=== PATIENT | female | born 1940 | race Caucasian/White ===

== ENCOUNTER → 2017-09-24 | Outpatient (CLI) | payer MEDICARE, OTHER | END | disposition home or self-care (01) | LOC: KCIC MAMMO 10:01 | DX: Z12.31 Encounter for screening mammogram for malignant neoplasm of breast (principal) | CPT/HCPCS: 77063; 77067 ==

== ENCOUNTER 2019-09-06 13:30 | Inpatient (IN) | payer MEDICARE ==
[~2019-09-06] VITALS: Ht 152.4 cm; Wt 112.5 kg
[2019-09-06] MEDS ORDERED: FAMOTIDINE 20 MG/2 ML VIAL IVP ONE (14:30)
[2019-09-06] MEDS ORDERED: IV NORMAL SALINE 1000ML BAG 1,000 ML IV ONE ×2 (14:30→18:15)
[2019-09-06] MEDS ORDERED: DICYCLOMINE HCL 10 MG CAPSULE PO ONE (14:30)
[2019-09-06] MEDS ORDERED: fentaNYL PF VIAL 100 MCG/2 ML VIAL IV PRN (14:30)
[2019-09-06] MEDS ORDERED: ONDANSETRON PF 4 MG/2 ML VIAL. IVP ONE (14:30)
--- NOTE | 2019-09-06 14:30 | EKG ---
[facility] [address] [place] [address] Test Date: 2019-09-06 Test Time: 13:38:07 Pat Name: GRAHAM MORRIS Department: Room: Gender: F Income Tax Auditor: : 1940 Requested By: WILLIAMS JACOBS Order Number: [id number] Reading MD: Measurements Intervals [place] Rate: 70 P: 40 MD: 156 QRS: -15 QRSD: 90 T: 56 QT: 446 QTc: 484 Interpretive Statements SINUS RHYTHM LEFTWARD AXIS NON SPECIFIC T ABNORMALITY PROLONGED QT BORDERLINE ECG No previous ECG available for comparison
[2019-09-06 14:33] LABS: BASO % 0 % (0-3); EOS % 0 % (0-3); HEMATOCRIT 43.9 % (36.0-47.0); HEMOGLOBIN 14.9 g/dL (12.0-15.5); LYMPH # 1.1 x10^3/uL (1.0-4.8); LYMPH % 8 % (24-48); MEAN CORPUSCULAR HEMOGLOBIN 31 pg (25-35); MEAN CORPUSCULAR HGB CONC 34 g/dL (31-37); MEAN CORPUSCULAR VOLUME 91 fL (79-100); MONO # 0.4 x10^3/uL (0.0-1.1); MONO % 3 % (0-9); NEUT # 12.8 x10^3/uL (1.8-7.7); NEUT % 89 % (31-73); PLATELET COUNT 270 x10^3/uL (140-400); RED CELL DISTRIBUTION WIDTH 13.9 % (11.5-14.5); WHITE BLOOD COUNT 14.4 x10^3/uL (4.0-11.0)
[2019-09-06 14:53] LABS: CALCIUM 9.2 mg/dL (8.5-10.1); GFR 53.5; POTASSIUM 3.8 mmol/L (3.5-5.1)
[2019-09-06 14:58] LABS: ALBUMIN 3.7 g/dL (3.4-5.0); ALBUMIN/GLOBULIN RATIO 0.9 (1.0-1.7); MAGNESIUM 2.2 mg/dL (1.8-2.4); TOTAL BILIRUBIN 0.6 mg/dL (0.2-1.0); TOTAL PROTEIN 7.7 g/dL (6.4-8.2)
[2019-09-06] MEDS ORDERED: IOHEXOL 300 MG/ML 100ML VIAL. IV ONE (15:00)
[2019-09-06 15:11] LABS: BILIRUBIN,URINE SMALL (NEG); CLARITY,URINE CLEAR; COLOR,URINE AMBER; NITRITE,URINE NEGATIVE (NEG); PROTEIN,URINE 30 mg/dL (NEG-TRACE)
[2019-09-06 15:17] LABS: BARBITURATES NEG (NEG); BENZODIAZEPINES NEG (NEG); CANNABINOIDS NEG (NEG); COCAINE NEG (NEG); METHADONE NEG (NEG); OPIATES NEG (NEG); PHENCYCLIDINE NEG (NEG)
[2019-09-06 15:20] LABS: AMPHETAMINE/METHAMPHETAMINE NEG (NEG)
[2019-09-06 15:28] LABS: HYALINE CASTS, URINE MANY /HPF; SQUAMOUS EPITHELIAL CELL,UR MANY /LPF
[2019-09-06 15:29] LABS: BACTERIA,URINE MOD /HPF (0-FEW)
[2019-09-06 15:49] LABS: % BANDS 7 % (0-9); % LYMPHS 8 % (24-48); % MONOS 2 % (0-10); % SEGS 83 % (35-66); PLT ESTIMATE ADEQUATE (ADEQUATE)
--- NOTE | 2019-09-06 16:13 | RAD ---
EXAM: CT Abdomen and Pelvis with IV contrast CLINICAL HISTORY: Abdominal pain COMPARISON: none TECHNIQUE: Helical CT of the abdomen and pelvis was performed following the administration of IV contrast. Axial, coronal and sagittal reformatted images were generated. ---PQRS compliance statement - One or more of the following individualized dose reduction techniques were utilized for this study: 1. Automated exposure control 2. Adjustment of the mA and/or kV according to patient size 3. Use of iterative reconstruction technique--- FINDINGS: Lower chest: Linear opacities in lower lobes likely scarring/atelectasis. Abdomen and pelvis: Liver and biliary system: Hepatic hypoattenuation may be seen with fatty liver. No focal liver lesion. Gallbladder is normal. No biliary duct dilatation. Spleen: Unremarkable Pancreas: Pancreas is unremarkable. Adrenal glands: Unremarkable Kidneys: Symmetric nephrograms. Subcentimeter hypodense left upper pole renal lesion is too small to accurately characterize. No hydronephrosis or hydroureter. Lymph nodes/retroperitoneum: No abdominal or pelvic lymphadenopathy. Vessels: Aorta is normal in caliber. Bowel/Peritoneal cavity: Moderate colonic stool content is seen. There is diffuse fluid distention of the small bowel measuring up to 2.8 cm. There is also small bowel feces sign. In the right lower quadrant there is decompressed distal small bowel to the level of the colon. Appendix is normal. No abdominal or pelvic ascites. Abdominal wall: Unremarkable Bladder: Bladder is decompressed but otherwise unremarkable. Bones: Degenerative changes of the spine are seen. No aggressive osseous lesion is seen. IMPRESSION: 1. Although there is no evidence for complete small bowel obstruction, there is suggestion for low-grade or partial small bowel obstruction given small bowel feces sign and relative decompression beyond the transition point in the right lower quadrant. 2. Appendix is normal. 3. Gallbladder is normal. 4. Relative hepatic hypoattenuation may be seen with fatty liver. Electronically signed by: Mauricio Callaway MD (09/06/2019 4:10 PM) [facility] [place]
[2019-09-06] MEDS ORDERED: ALBUTEROL SULFATE 2.5 MG/3 ML NEBU. NEB PRN (17:15)
[2019-09-06] MEDS ORDERED: ACETAMINOPHEN 650 MG SUPP.RECT. PR PRN (17:15)
[2019-09-06] MEDS ORDERED: guaiFENesin ORAL 200 MG/10 ML LIQUID. PO PRN (17:15)
[2019-09-06] MEDS ORDERED: ACETAMINOPHEN 325 MG TABLET. PO PRN (17:15)
[2019-09-06] MEDS: ONDANSETRON PF 4 MG/2 ML VIAL. IV PRN (17:53)
--- NOTE | 2019-09-06 18:14 | RAD ---
Exam: Acute abdominal series INDICATION: Partial small bowel obstruction TECHNIQUE: Frontal view of the chest with upright and supine views of the abdomen Comparisons: CT same day FINDINGS: The cardiomediastinal silhouette and pulmonary vessels are within normal limits. The lung and pleural spaces are clear. Multiple air-filled dilated loops of small bowel are noted throughout the abdomen. No free air. No suspicious masses or calcifications. Visualized osseous structures are unremarkable. IMPRESSION: Multiple dilated loops of small bowel consistent with history of partial small bowel obstruction. Continued radiographic follow-up is recommended. Electronically signed by: Lenny Conner MD (09/06/2019 6:11 PM) [facility]
[2019-09-06] MEDS ORDERED: PROCHLORPERAZINE 10 MG/2 ML VIAL. IV PRN (18:15)
[2019-09-06] MEDS ORDERED: ONDANSETRON PF 4 MG/2 ML VIAL. IV PRN (18:15)
[2019-09-06] MEDS ORDERED: MORPHINE SULFATE 2 MG/ML VIAL. IV PRN (18:15)
--- NOTE | 2019-09-06 18:40 | PHYS DOC ---
Past Medical History Past Medical History: Arthritis, Glaucoma, Hypertension (WILLIAMS JACOBS APRN) Alcohol Use: None (WILLIAMS JACOBS APRN) Adult General Chief Complaint Chief Complaint: ABDOMINAL PAIN HPI HPI Patient is a 79 year old female with history of hypertension who presents to the ED today complaining of mild intermittent generalized abdominal pain with nausea and vomiting that began this morning. Patient denies any diarrhea. She r eports she's had an open hysterectomy years ago. Denies any hematemesis or melena. Patient reports the pain was so bad that she almost passed out. (WILLIAMS JACOBS APRN) Review of Systems Review of Systems Constitutional: Denies fever or chills [] Eyes: Denies change in visual acuity, redness, or eye pain [] HENT: Denies nasal congestion or sore throat [] Respiratory: Denies cough or shortness of breath [] Cardiovascular: No additional information not addressed in HPI [] GI: Reports nausea vomiting and abdominal pain. Denies bloody stools or diarrhea [] : Denies dysuria or hematuria [] Musculoskeletal: Denies back pain or joint pain [] Integument: Denies rash or skin lesions [] Neurologic: Denies headache, focal weakness or sensory changes [] All other systems were reviewed and found to be within normal limits, except as documented in this note. (WILLIAMS JACOBS APRN) Current Medications Current Medications Current Medications Medications (Trade) Dose Ordered Sig/Brianna Start Time Stop Time Status Last Admin Dose Admin Acetaminophen (Tylenol Supp) 650 mg PRN Q4HRS PRN 09/06/19 17:15 Acetaminophen (Tylenol) 650 mg PRN Q4HRS PRN 09/06/19 17:15 09/09/19 05:03 650 MG Albuterol Sulfate (Ventolin Neb Soln) 2.5 mg PRN Q4HRS PRN 09/06/19 17:15 Dicyclomine HCl (Bentyl) 20 mg 1X ONCE 09/06/19 14:30 09/06/19 14:35 DC 09/06/19 14:58 20 MG Docusate Sodium (Colace) 100 mg PRN BID PRN 09/06/19 17:15 09/07/19 21:25 100 MG Famotidine (Pepcid Vial) 20 mg 1X ONCE 09/06/19 14:30 09/06/19 14:35 DC 09/06/19 15:00 20 MG Fentanyl Citrate (Fentanyl 2ml Vial) 25 mcg PRN Q15MIN PRN 09/06/19 14:30 09/06/19 21:00 DC 09/06/19 16:36 25 MCG Guaifenesin (Robitussin) 200 mg PRN Q4HRS PRN 09/06/19 17:15 Iohexol (Omnipaque 300 Mg/ml) 60 ml 1X ONCE 09/06/19 15:00 09/06/19 15:01 DC 09/06/19 15:00 60 ML Lorazepam (Ativan Inj) 1 mg PRN Q4HRS PRN 09/06/19 17:15 09/09/19 17:31 1 MG Ondansetron HCl (Zofran) 4 mg PRN Q4HRS PRN 09/06/19 17:15 09/09/19 17:30 4 MG Sodium Chloride 1,000 ml @ 100 mls/hr Q10H 09/06/19 17:05 09/09/19 20:44 100 MLS/HR (LISA PEREZ DO) Physical Exam Physical Exam Constitutional: Well developed, well nourished, no acute distress, non-toxic appearance. [] HENT: Normocephalic, atraumatic, bilateral external ears normal, oropharynx moist, no oral exudates, nose normal. [] Eyes: PERRLA, EOMI, conjunctiva normal, no discharge. [] Neck: Normal range of motion, no tenderness, supple, no stridor. [] Cardiovascular:Heart rate regular rhythm, no murmur [] Lungs & Thorax: Bilateral breath sounds clear to auscultation [] Abdomen: Bowel sounds normal, soft, diffuse tenderness to bilateral lower abdomen worse on the left lower quadrant, negative psoas sign, negative obturator sign, negative Rovsing sign negative Herrera sign, no masses, no pulsatile masses. [] Skin: Warm, dry, no erythema, no rash. [] Back: No tenderness, no CVA tenderness. [] Extremities: No tenderness, no cyanosis, no clubbing, ROM intact, no edema. [] Neurologic: Alert and oriented X 3, normal motor function, normal sensory function, no focal deficits noted. [] Psychologic: Affect normal, judgement normal, mood normal. [] (ARLENEWILLIAMS APRN) Current Patient Data Vital Signs Vital Signs Date Time Temp Pulse Resp B/P (MAP) Pulse Ox O2 Delivery O2 Flow Rate FiO2 09/06/19 17:15 20 96 09/06/19 16:36 Room Air 09/06/19 15:05 71 132/61 (84) 09/06/19 13:38 98.1 98.1 (PEREZLISA SU DO) Lab Values Laboratory Tests Test 09/06/19 14:15 09/06/19 15:00 White Blood Count 14.4 x10^3/uL (4.0-11.0) H Red Blood Count 4.80 x10^6/uL (3.50-5.40) Hemoglobin 14.9 g/dL (12.0-15.5) Hematocrit 43.9 % (36.0-47.0) Mean Corpuscular Volume 91 fL (79-100) Mean Corpuscular Hemoglobin 31 pg (25-35) Mean Corpuscular Hemoglobin Concent 34 g/dL (31-37) Red Cell Distribution Width 13.9 % (11.5-14.5) Platelet Count 270 x10^3/uL (140-400) Neutrophils (%) (Auto) 89 % (31-73) H Lymphocytes (%) (Auto) 8 % (24-48) L Monocytes (%) (Auto) 3 % (0-9) Eosinophils (%) (Auto) 0 % (0-3) Basophils (%) (Auto) 0 % (0-3) Neutrophils # (Auto) 12.8 x10^3/uL (1.8-7.7) H Lymphocytes # (Auto) 1.1 x10^3/uL (1.0-4.8) Monocytes # (Auto) 0.4 x10^3/uL (0.0-1.1) Eosinophils # (Auto) 0.0 x10^3/uL (0.0-0.7) Basophils # (Auto) 0.0 x10^3/uL (0.0-0.2) Segmented Neutrophils % 83 % (35-66) H Band Neutrophils % 7 % (0-9) Lymphocytes % 8 % (24-48) L Monocytes % 2 % (0-10) Platelet Estimate Adequate (ADEQUATE) Large Platelets Few Sodium Level 142 mmol/L (136-145) Potassium Level 3.8 mmol/L (3.5-5.1) Chloride Level 104 mmol/L (98-107) Carbon Dioxide Level 27 mmol/L (21-32) Anion Gap 11 (6-14) Blood Urea Nitrogen 14 mg/dL (7-20) Creatinine 1.0 mg/dL (0.6-1.0) Estimated GFR (Cockcroft-Gault) 53.5 BUN/Creatinine Ratio 14 (6-20) Glucose Level 158 mg/dL (70-99) H Calcium Level 9.2 mg/dL (8.5-10.1) Magnesium Level 2.2 mg/dL (1.8-2.4) Total Bilirubin 0.6 mg/dL (0.2-1.0) Aspartate Amino Transferase (AST) 18 U/L (15-37) Alanine Aminotransferase (ALT) 18 U/L (14-59) Alkaline Phosphatase 71 U/L (46-116) Creatine Kinase 172 U/L (26-192) Creatine Kinase MB (Mass) 4.6 ng/mL (0.0-3.6) H Creatine Kinase MB Relative Index 2.7 % (0-4) Troponin I Quantitative < 0.017 ng/mL (0.000-0.055) BP-Igv-O-Type Natriuretic Peptide 54 pg/mL (0-449) Total Protein 7.7 g/dL (6.4-8.2) Albumin 3.7 g/dL (3.4-5.0) Albumin/Globulin Ratio 0.9 (1.0-1.7) L Lipase 184 U/L (73-393) Urine Collection Type Unknown Urine Color Rosangela Urine Clarity Clear Urine pH 5.0 Urine Specific [place] >=1.030 Urine Protein 30 mg/dL (NEG-TRACE) Urine Glucose (UA) Negative mg/dL (NEG) Urine Ketones (Stick) Negative mg/dL (NEG) Urine Blood Moderate (NEG) Urine Nitrite Negative (NEG) Urine Bilirubin Small (NEG) Urine Urobilinogen Dipstick 1.0 mg/dL (0.2 mg/dL) Urine Leukocyte Esterase Small (NEG) Urine RBC 6-10 /HPF (0-2) Urine WBC 1-4 /HPF (0-4) Urine Squamous Epithelial Cells Many /LPF Urine Bacteria Mod /HPF (0-FEW) Urine Hyaline Casts Many /HPF Urine Mucus Marked /LPF Urine Opiates Screen Neg (NEG) Urine Methadone Screen Neg (NEG) Urine Barbiturates Neg (NEG) Urine Phencyclidine Screen Neg (NEG) Urine Amphetamine/Methamphetamine Neg (NEG) Urine Benzodiazepines Screen Neg (NEG) Urine Cocaine Screen Neg (NEG) Urine Cannabinoids Screen Neg (NEG) Urine Ethyl Alcohol Neg (NEG) Laboratory Tests 09/06/19 14:15 Laboratory Tests 09/06/19 14:15 (LISA PEREZ DO) EKG EKG [address] Perez sinus rhythm HR 70 no STEMI[] (WILLIAMS JACOBS VOCATIONAL DIRECTOR) Radiology/Procedures Radiology/Procedures []PROCEDURE: CT ABD PELV W/ IV CONTRST ONLY EXAM: CT Abdomen and Pelvis with IV contrast CLINICAL HISTORY: Abdominal pain COMPARISON: none TECHNIQUE: Helical CT of the abdomen and pelvis was performed following the administration of IV contrast. Axial, coronal and sagittal reformatted images were generated. ---PQRS compliance statement - One or more of the following individualized dose reduction techniques were utilized for this study: 1. Automated exposure control 2. Adjustment of the mA and/or kV according to patient size 3. Use of iterative reconstruction technique--- FINDINGS: Lower chest: Linear opacities in lower lobes likely scarring/atelectasis. Abdomen and pelvis: Liver and biliary system: Hepatic hypoattenuation may be seen with fatty liver. No focal liver lesion. Gallbladder is normal. No biliary duct dilatation. Spleen: Unremarkable Pancreas: Pancreas is unremarkable. Adrenal glands: Unremarkable Kidneys: Symmetric nephrograms. Subcentimeter hypodense left upper pole renal lesion is too small to accurately characterize. No hydronephrosis or hydroureter. Lymph nodes/retroperitoneum: No abdominal or pelvic lymphadenopathy. Vessels: Aorta is normal in caliber. Bowel/Peritoneal cavity: Moderate colonic stool content is seen. There is diffuse fluid distention of the small bowel measuring up to 2.8 cm. There is also small bowel feces sign. In the right lower quadrant there is decompressed distal small bowel to the level of the colon. Appendix is normal. No abdominal or pelvic ascites. Abdominal wall: Unremarkable Bladder: Bladder is decompressed but otherwise unremarkable. Bones: Degenerative changes of the spine are seen. No aggressive osseous lesion is seen. IMPRESSION: 1. Although there is no evidence for complete small bowel obstruction, there is suggestion for low-grade or partial small bowel obstruction given small bowel feces sign and relative decompression beyond the transition point in the right lower quadrant. 2. Appendix is normal. 3. Gallbladder is normal. 4. Relative hepatic hypoattenuation may be seen with fatty liver. Electronically signed by: Mauricio Valdes MD (09/06/2019 4:10 PM) [facility] [place] DICTATED and SIGNED BY: MAURICIO VALDES MD DATE: 09/06/19 1610 (WILLIAMS JACOBS APRN) Course & Med Decision Making Course & Med Decision Making Pertinent Labs and Imaging studies reviewed. (See chart for details) This is a 79-year-old female patient presented to the ED today complaining of abdominal pain, and nausea vomiting, symptoms began this morning. CBC with a WBC of 14.4, CMP with no acute findings CT of the abdomen and pelvic was noted for partial small bowel obstruction and constipation. Spoke to who recommended NG tube if patient is vomiting. Patient was still complaining of nausea in the ED, we attempted an NG tube which she refused. Spoke with Dr. Viera who accepted patient for admission. (WILLIAMS JACOBS APRN) Dragon Disclaimer Dragon Disclaimer This electronic medical record was generated, in whole or in part, using a voice recognition dictation system. (WILLIAMS JACOBS APRN) Departure Departure Impression: Primary Impression: SBO (small bowel obstruction) Disposition: ADMITTED INPATIENT Condition: STABLE Referrals: SONY AUGUSTINE MD (PCP) Attending Signature Attending Signature I have reviewed the PA/STREET DEPARTMENT DISPATCHER's note and plan of care. I was available for consultation as needed during the patient's visit in the emergency department. I agree with the clinical impression, plan, and disposition. (LISA PEREZ DO) WILLIAMS JACOBS APRN Sep 06, 2019 18:40 LISA PEREZ DO Sep 10, 2019 02:06
--- NOTE | 2019-09-06 18:46 | PDOC1 ---
History and Physical History of Present Illness History of Present Illness Patient is a 79 year odl female with past medical hsitory of hypertension, glaucoma who was in her usual state of health until this monrinign when she tried to finish the [place] she had ordered at [facility] yesterday evening. Patient presented lower abodminal pain sharp in nature, with no radiation to the groin or the back, The patient denies urinary symptoms no CVA tendernesss, no fever or chills, She had emesis of gastric content on 2 occasions, her symptoms did not improve. She did not self medicate, she denies fever chill no recent sick contacts no animals at home. She denies diarrhea no hematochezia or hematemesis was reported either. Patient was brought by her family members, she denies aggravating nor alleviating factors, she feels better after initial intervention in the ED with iv narcotics and iv fluids. Patient was found to have a partial bowel obstruction and we were asked to admit for further evaluation and treatment. No concerns voiced during my encounter, her surgical history is pertinent for hysterectomy years ago. No complication were reported. plan of care discussed in detail with the patient and her family members who are at bedside. ( and granddaughter) Current Medications Current Medications Current Medications Medications (Trade) Dose Ordered Sig/Brianna Start Time Stop Time Status Last Admin Dose Admin Acetaminophen (Tylenol Supp) 650 mg PRN Q4HRS PRN 09/06/19 17:15 Acetaminophen (Tylenol) 650 mg PRN Q4HRS PRN 09/06/19 17:15 Albuterol Sulfate (Ventolin Neb Soln) 2.5 mg PRN Q4HRS PRN 09/06/19 17:15 Dicyclomine HCl (Bentyl) 20 mg 1X ONCE 09/06/19 14:30 09/06/19 14:35 DC 09/06/19 14:58 20 MG Docusate Sodium (Colace) 100 mg PRN BID PRN 09/06/19 17:15 Famotidine (Pepcid Vial) 20 mg 1X ONCE 09/06/19 14:30 09/06/19 14:35 DC 09/06/19 15:00 20 MG Fentanyl Citrate (Fentanyl 2ml Vial) 25 mcg PRN Q15MIN PRN 09/06/19 14:30 09/07/19 14:29 09/06/19 16:36 25 MCG Guaifenesin (Robitussin) 200 mg PRN Q4HRS PRN 09/06/19 17:15 Iohexol (Omnipaque 300 Mg/ml) 60 ml 1X ONCE 09/06/19 15:00 09/06/19 15:01 DC 09/06/19 15:00 60 ML Lorazepam (Ativan Inj) 1 mg PRN Q4HRS PRN 09/06/19 17:15 Morphine Sulfate (Morphine Sulfate) 2 mg PRN Q2HR PRN 09/06/19 18:15 09/07/19 18:14 Ondansetron HCl (Zofran) 4 mg PRN Q8HRS PRN 09/06/19 18:15 09/07/19 18:14 UNV Prochlorperazine Edisylate (Compazine) 10 mg PRN Q8HRS PRN 09/06/19 18:15 Sodium Chloride 1,000 ml @ 100 mls/hr 1X ONCE 09/06/19 18:15 09/07/19 04:14 UNV Allergies Allergies Allergies Coded Allergies Type Severity Reaction Last Updated Verified guanfacine Allergy Unknown 09/06/19 Yes lisinopril Allergy Unknown 09/06/19 Yes ROS Review of System CONSTITUTIONAL: No fever or chills EYES: No recent changes SKIN: No rash or itching CARDIOVASCULAR: No chest pain, syncope, palpitations, or edema RESPIRATORY: No SOB or cough GASTROINTESTINAL: + nausea, +vomiting + abdominal pain NEUROLOGICAL: No headaches or weakness ENDOCRINE: No cold or heat intolerance GENITOURINARY: No urgency or frequency of urination MUSCULOSKELETAL: No back pain or joint pain LYMPHATICS: No enlarged lymph nodes PSYCHIATRIC: No anxiety or depression Physical Exam Physical Exam GEN.: No apparent distress. Alert and oriented. HEENT: Head is normocephalic, atraumatic NECK: Supple. LUNGS: Clear to auscultation. HEART: RRR, S1, S2 present. Peripheral pulses intact ABDOMEN: Soft, tneder to deep palpation , no rebound or guarding ellicited, mcburney sign negative, blackwood sign negative Positive bowel sounds. EXTREMITIES: Without any cyanosis. NEUROLOGIC: Normal speech, normal tone CN 2 to 12 intact no motor or sensory deficits. PSYCHIATRIC: Normal affect, normal mood. SKIN: No ulcerations Vitals Vitals Vital Signs Date Time Temp Pulse Resp B/P (MAP) Pulse Ox O2 Delivery O2 Flow Rate FiO2 09/06/19 17:15 20 96 09/06/19 16:36 Room Air 09/06/19 15:05 71 132/61 (84) 09/06/19 13:38 98.1 98.1 Labs Labs Laboratory Tests Test 09/06/19 14:15 09/06/19 15:00 White Blood Count 14.4 x10^3/uL (4.0-11.0) Red Blood Count 4.80 x10^6/uL (3.50-5.40) Hemoglobin 14.9 g/dL (12.0-15.5) Hematocrit 43.9 % (36.0-47.0) Mean Corpuscular Volume 91 fL (79-100) Mean Corpuscular Hemoglobin 31 pg (25-35) Mean Corpuscular Hemoglobin Concent 34 g/dL (31-37) Red Cell Distribution Width 13.9 % (11.5-14.5) Platelet Count 270 x10^3/uL (140-400) Neutrophils (%) (Auto) 89 % (31-73) Lymphocytes (%) (Auto) 8 % (24-48) Monocytes (%) (Auto) 3 % (0-9) Eosinophils (%) (Auto) 0 % (0-3) Basophils (%) (Auto) 0 % (0-3) Neutrophils # (Auto) 12.8 x10^3/uL (1.8-7.7) Lymphocytes # (Auto) 1.1 x10^3/uL (1.0-4.8) Monocytes # (Auto) 0.4 x10^3/uL (0.0-1.1) Eosinophils # (Auto) 0.0 x10^3/uL (0.0-0.7) Basophils # (Auto) 0.0 x10^3/uL (0.0-0.2) Segmented Neutrophils % 83 % (35-66) Band Neutrophils % 7 % (0-9) Lymphocytes % 8 % (24-48) Monocytes % 2 % (0-10) Platelet Estimate Adequate (ADEQUATE) Large Platelets Few Sodium Level 142 mmol/L (136-145) Potassium Level 3.8 mmol/L (3.5-5.1) Chloride Level 104 mmol/L (98-107) Carbon Dioxide Level 27 mmol/L (21-32) Anion Gap 11 (6-14) Blood Urea Nitrogen 14 mg/dL (7-20) Creatinine 1.0 mg/dL (0.6-1.0) Estimated GFR (Cockcroft-Gault) 53.5 BUN/Creatinine Ratio 14 (6-20) Glucose Level 158 mg/dL (70-99) Calcium Level 9.2 mg/dL (8.5-10.1) Magnesium Level 2.2 mg/dL (1.8-2.4) Total Bilirubin 0.6 mg/dL (0.2-1.0) Aspartate Amino Transf (AST/SGOT) 18 U/L (15-37) Alanine Aminotransferase (ALT/SGPT) 18 U/L (14-59) Alkaline Phosphatase 71 U/L (46-116) Creatine Kinase 172 U/L (26-192) Creatine Kinase MB (Mass) 4.6 ng/mL (0.0-3.6) Creatine Kinase MB Relative Index 2.7 % (0-4) Troponin I Quantitative < 0.017 ng/mL (0.000-0.055) JB-Thx-C-Type Natriuretic Peptide 54 pg/mL (0-449) Total Protein 7.7 g/dL (6.4-8.2) Albumin 3.7 g/dL (3.4-5.0) Albumin/Globulin Ratio 0.9 (1.0-1.7) Lipase 184 U/L (73-393) Urine Collection Type Unknown Urine Color Rosangela Urine Clarity Clear Urine pH 5.0 Urine Specific [place] >=1.030 Urine Protein 30 mg/dL (NEG-TRACE) Urine Glucose (UA) Negative mg/dL (NEG) Urine Ketones (Stick) Negative mg/dL (NEG) Urine Blood Moderate (NEG) Urine Nitrite Negative (NEG) Urine Bilirubin Small (NEG) Urine Urobilinogen Dipstick 1.0 mg/dL (0.2 mg/dL) Urine Leukocyte Esterase Small (NEG) Urine RBC 6-10 /HPF (0-2) Urine WBC 1-4 /HPF (0-4) Urine Squamous Epithelial Cells Many /LPF Urine Bacteria Mod /HPF (0-FEW) Urine Hyaline Casts Many /HPF Urine Mucus Marked /LPF Urine Opiates Screen Neg (NEG) Urine Methadone Screen Neg (NEG) Urine Barbiturates Neg (NEG) Urine Phencyclidine Screen Neg (NEG) Urine Amphetamine/Methamphetamine Neg (NEG) Urine Benzodiazepines Screen Neg (NEG) Urine Cocaine Screen Neg (NEG) Urine Cannabinoids Screen Neg (NEG) Urine Ethyl Alcohol Neg (NEG) Laboratory Tests Test 09/06/19 14:15 09/06/19 15:00 White Blood Count 14.4 x10^3/uL (4.0-11.0) Red Blood Count 4.80 x10^6/uL (3.50-5.40) Hemoglobin 14.9 g/dL (12.0-15.5) Hematocrit 43.9 % (36.0-47.0) Mean Corpuscular Volume 91 fL (79-100) Mean Corpuscular Hemoglobin 31 pg (25-35) Mean Corpuscular Hemoglobin Concent 34 g/dL (31-37) Red Cell Distribution Width 13.9 % (11.5-14.5) Platelet Count 270 x10^3/uL (140-400) Neutrophils (%) (Auto) 89 % (31-73) Lymphocytes (%) (Auto) 8 % (24-48) Monocytes (%) (Auto) 3 % (0-9) Eosinophils (%) (Auto) 0 % (0-3) Basophils (%) (Auto) 0 % (0-3) Neutrophils # (Auto) 12.8 x10^3/uL (1.8-7.7) Lymphocytes # (Auto) 1.1 x10^3/uL (1.0-4.8) Monocytes # (Auto) 0.4 x10^3/uL (0.0-1.1) Eosinophils # (Auto) 0.0 x10^3/uL (0.0-0.7) Basophils # (Auto) 0.0 x10^3/uL (0.0-0.2) Segmented Neutrophils % 83 % (35-66) Band Neutrophils % 7 % (0-9) Lymphocytes % 8 % (24-48) Monocytes % 2 % (0-10) Platelet Estimate Adequate (ADEQUATE) Large Platelets Few Sodium Level 142 mmol/L (136-145) Potassium Level 3.8 mmol/L (3.5-5.1) Chloride Level 104 mmol/L (98-107) Carbon Dioxide Level 27 mmol/L (21-32) Anion Gap 11 (6-14) Blood Urea Nitrogen 14 mg/dL (7-20) Creatinine 1.0 mg/dL (0.6-1.0) Estimated GFR (Cockcroft-Gault) 53.5 BUN/Creatinine Ratio 14 (6-20) Glucose Level 158 mg/dL (70-99) Calcium Level 9.2 mg/dL (8.5-10.1) Magnesium Level 2.2 mg/dL (1.8-2.4) Total Bilirubin 0.6 mg/dL (0.2-1.0) Aspartate Amino Transf (AST/SGOT) 18 U/L (15-37) Alanine Aminotransferase (ALT/SGPT) 18 U/L (14-59) Alkaline Phosphatase 71 U/L (46-116) Creatine Kinase 172 U/L (26-192) Creatine Kinase MB (Mass) 4.6 ng/mL (0.0-3.6) Creatine Kinase MB Relative Index 2.7 % (0-4) Troponin I Quantitative < 0.017 ng/mL (0.000-0.055) KO-[id number]-Type Natriuretic Peptide 54 pg/mL (0-449) Total Protein 7.7 g/dL (6.4-8.2) Albumin 3.7 g/dL (3.4-5.0) Albumin/Globulin Ratio 0.9 (1.0-1.7) Lipase 184 U/L (73-393) Urine Collection Type Unknown Urine Color [place]ela Urine Clarity Clear Urine pH 5.0 Urine Specific [place] >=1.030 Urine Protein 30 mg/dL (NEG-TRACE) Urine Glucose (UA) Negative mg/dL (NEG) Urine Ketones (Stick) Negative mg/dL (NEG) Urine Blood Moderate (NEG) Urine Nitrite Negative (NEG) Urine Bilirubin Small (NEG) Urine Urobilinogen Dipstick 1.0 mg/dL (0.2 mg/dL) Urine Leukocyte Esterase Small (NEG) Urine RBC 6-10 /HPF (0-2) Urine WBC 1-4 /HPF (0-4) Urine Squamous Epithelial Cells Many /LPF Urine Bacteria Mod /HPF (0-FEW) Urine Hyaline Casts Many /HPF Urine Mucus Marked /LPF Urine Opiates Screen Neg (NEG) Urine Methadone Screen Neg (NEG) Urine Barbiturates Neg (NEG) Urine Phencyclidine Screen Neg (NEG) Urine Amphetamine/Methamphetamine Neg (NEG) Urine Benzodiazepines Screen Neg (NEG) Urine Cocaine Screen Neg (NEG) Urine Cannabinoids Screen Neg (NEG) Urine Ethyl Alcohol Neg (NEG) VTE Prophylaxis Ordered VTE Prophylaxis Devices: Yes VTE Pharmacological Prophylaxi: Yes Assessment/Plan Assessment/Plan Partial small bowel obstruction History of hysterectomy History of essential hypertension Morbid obesity with BMI of 45 Plan: patient is passing gases which is reassuring will keep npo overnight and give bowel rest start maintenance fluids surgical consultation requested DVT prophylaxis: Heparin ESTELA MENDEZ MD Sep 06, 2019 18:46
--- NOTE | 2019-09-06 19:17 | NUR ---
Cleared reassessments from ED on [facility].
--- NOTE | 2019-09-06 19:40 | NUR ---
Pt. arrived on unit at 1940 by bed from ED. Family at bedside. VSS. Pt. does not complain of any pain. Bed placed in lowest position and call light within reach. RN will continue to monitor.
[2019-09-06 19:48] VITALS: BP 129/45
[2019-09-06] MEDS: FAMOTIDINE 20 MG/2 ML VIAL IVP SCH (21:12)
[2019-09-06] MEDS: IV NORMAL SALINE 1000ML BAG 1,000 ML IV SCH (21:22)
[2019-09-06 23:37] VITALS: BP 126/42
[2019-09-07] MEDS ORDERED: VERA240C2 PO (02:01)
[2019-09-07] MEDS ORDERED: ACET500T68 PO (02:01)
[2019-09-07] MEDS ORDERED: ASPI-630 PO (02:01)
[2019-09-07] MEDS ORDERED: TRIA50CA3 PO (02:01)
[2019-09-07] MEDS ORDERED: TRAV5DRO OU (02:01)
[2019-09-07] MEDS ORDERED: CELE200C PO (02:01)
[2019-09-07] MEDS: ONDANSETRON PF 4 MG/2 ML VIAL. IV PRN ×2 (03:11→22:55)
[2019-09-07] MEDS: IV NORMAL SALINE 1000ML BAG 1,000 ML IV SCH ×2 (03:15→18:37)
[2019-09-07] MEDS: MORPHINE SULFATE 2 MG/ML VIAL. IV PRN ×2 (03:15→22:54)
[2019-09-07 03:24] VITALS: BP 139/70
[2019-09-07 07:00] VITALS: BP 129/59
[2019-09-07 08:16] LABS: BASO % 0 % (0-3); EOS % 0 % (0-3); HEMATOCRIT 40.6 % (36.0-47.0); HEMOGLOBIN 13.4 g/dL (12.0-15.5); LYMPH # 2.1 x10^3/uL (1.0-4.8); LYMPH % 18 % (24-48); MEAN CORPUSCULAR HEMOGLOBIN 30 pg (25-35); MEAN CORPUSCULAR HGB CONC 33 g/dL (31-37); MEAN CORPUSCULAR VOLUME 92 fL (79-100); MONO # 0.8 x10^3/uL (0.0-1.1); MONO % 7 % (0-9); NEUT # 8.9 x10^3/uL (1.8-7.7); NEUT % 75 % (31-73); PLATELET COUNT 285 x10^3/uL (140-400); RED BLOOD COUNT 4.43 x10^6/uL (3.50-5.40); RED CELL DISTRIBUTION WIDTH 13.4 % (11.5-14.5); WHITE BLOOD COUNT 11.9 x10^3/uL (4.0-11.0)
[2019-09-07 08:26] LABS: CALCIUM 9.1 mg/dL (8.5-10.1); CREATININE 0.8 mg/dL (0.6-1.0); GFR 69.2; POTASSIUM 3.9 mmol/L (3.5-5.1)
--- NOTE | 2019-09-07 09:10 | PDOC ---
PROGRESS NOTES History of Present Illness History of Present Illness VTE Prophylaxis Ordered VTE Prophylaxis Devices: Yes VTE Pharmacological Prophylaxi: Yes Assessment/Plan Assessment/Plan Partial small bowel obstruction Multiple dilated loops of small bowel consistent with history of partial small bowel obstruction. Continued radiographic follow-up is recommended. 09/06 low-grade or partial small bowel obstruction given small bowel feces sign and relative decompression beyond the transition point in the right lower quadrant.ON CT 09/06 History of hysterectomy History of essential hypertension Morbid obesity with BMI of 45 Plan: patient is passing gases which is reassuring will keep npo overnight and give bowel rest start maintenance fluids surgical consultation requested DVT prophylaxis: Heparin gi consult Vitals Vitals Vital Signs Date Time Temp Pulse Resp B/P (MAP) Pulse Ox O2 Delivery O2 Flow Rate FiO2 09/07/19 03:45 Room Air 09/07/19 03:24 98.3 99 20 139/70 (93) 96 98.3 Physical Exam General: Alert, Cooperative, No acute distress Heart: Regular rate Lungs: Clear Abdomen: Soft Extremities: No cyanosis Labs LABS Exam: Acute abdominal series INDICATION: Partial small bowel obstruction TECHNIQUE: Frontal view of the chest with upright and supine views of the abdomen Comparisons: CT same day FINDINGS: The cardiomediastinal silhouette and pulmonary vessels are within normal limits. The lung and pleural spaces are clear. Multiple air-filled dilated loops of small bowel are noted throughout the abdomen. No free air. No suspicious masses or calcifications. Visualized osseous structures are unremarkable. IMPRESSION: Multiple dilated loops of small bowel consistent with history of partial small bowel obstruction. Continued radiographic follow-up is recommended. Electronically signed by: Lenny London MD (09/06/2019 6:11 PM) [facility] DICTATED and SIGNED BY: LENNY LONDON MD DATE: 09/06/191810 ---PQRS compliance statement - One or more of the following individualized dose reduction techniques were utilized for this study: 1. Automated exposure control 2. Adjustment of the mA and/or kV according to patient size 3. Use of iterative reconstruction technique--- FINDINGS: Lower chest: Linear opacities in lower lobes likely scarring/atelectasis. Abdomen and pelvis: Liver and biliary system: Hepatic hypoattenuation may be seen with fatty liver. No focal liver lesion. Gallbladder is normal. No biliary duct dilatation. Spleen: Unremarkable Pancreas: Pancreas is unremarkable. Adrenal glands: Unremarkable Kidneys: Symmetric nephrograms. Subcentimeter hypodense left upper pole renal lesion is too small to accurately characterize. No hydronephrosis or hydroureter. Lymph nodes/retroperitoneum: No abdominal or pelvic lymphadenopathy. Vessels: Aorta is normal in caliber. Bowel/Peritoneal cavity: Moderate colonic stool content is seen. There is diffuse fluid distention of the small bowel measuring up to 2.8 cm. There is also small bowel feces sign. In the right lower quadrant there is decompressed distal small bowel to the level of the colon. Appendix is normal. No abdominal or pelvic ascites. Abdominal wall: Unremarkable Bladder: Bladder is decompressed but otherwise unremarkable. Bones: Degenerative changes of the spine are seen. No aggressive osseous lesion is seen. IMPRESSION: 1. Although there is no evidence for complete small bowel obstruction, there is suggestion for low-grade or partial small bowel obstruction given small bowel feces sign and relative decompression beyond the transition point in the right lower quadrant. 2. Appendix is normal. 3. Gallbladder is normal. 4. Relative hepatic hypoattenuation may be seen with fatty liver. Electronically signed by: Mauricio Valdes MD (09/06/2019 4:10 PM) [facility] [place] DICTATED and SIGNED BY: MAURICIO VALDES MD DATE: 09/06/19 1610 Laboratory Tests Test 09/06/19 14:15 09/06/19 15:00 09/07/19 07:30 White Blood Count 14.4 x10^3/uL (4.0-11.0) 11.9 x10^3/uL (4.0-11.0) Red Blood Count 4.80 x10^6/uL (3.50-5.40) 4.43 x10^6/uL (3.50-5.40) Hemoglobin 14.9 g/dL (12.0-15.5) 13.4 g/dL (12.0-15.5) Hematocrit 43.9 % (36.0-47.0) 40.6 % (36.0-47.0) Mean Corpuscular Volume 91 fL (79-100) 92 fL (79-100) Mean Corpuscular Hemoglobin 31 pg (25-35) 30 pg (25-35) Mean Corpuscular Hemoglobin Concent 34 g/dL (31-37) 33 g/dL (31-37) Red Cell Distribution Width 13.9 % (11.5-14.5) 13.4 % (11.5-14.5) Platelet Count 270 x10^3/uL (140-400) 285 x10^3/uL (140-400) Neutrophils (%) (Auto) 89 % (31-73) 75 % (31-73) Lymphocytes (%) (Auto) 8 % (24-48) 18 % (24-48) Monocytes (%) (Auto) 3 % (0-9) 7 % (0-9) Eosinophils (%) (Auto) 0 % (0-3) 0 % (0-3) Basophils (%) (Auto) 0 % (0-3) 0 % (0-3) Neutrophils # (Auto) 12.8 x10^3/uL (1.8-7.7) 8.9 x10^3/uL (1.8-7.7) Lymphocytes # (Auto) 1.1 x10^3/uL (1.0-4.8) 2.1 x10^3/uL (1.0-4.8) Monocytes # (Auto) 0.4 x10^3/uL (0.0-1.1) 0.8 x10^3/uL (0.0-1.1) Eosinophils # (Auto) 0.0 x10^3/uL (0.0-0.7) 0.0 x10^3/uL (0.0-0.7) Basophils # (Auto) 0.0 x10^3/uL (0.0-0.2) 0.0 x10^3/uL (0.0-0.2) Segmented Neutrophils % 83 % (35-66) Band Neutrophils % 7 % (0-9) Lymphocytes % 8 % (24-48) Monocytes % 2 % (0-10) Platelet Estimate Adequate (ADEQUATE) Large Platelets Few Sodium Level 142 mmol/L (136-145) 144 mmol/L (136-145) Potassium Level 3.8 mmol/L (3.5-5.1) 3.9 mmol/L (3.5-5.1) Chloride Level 104 mmol/L (98-107) 108 mmol/L (98-107) Carbon Dioxide Level 27 mmol/L (21-32) 25 mmol/L (21-32) Anion Gap 11 (6-14) 11 (6-14) Blood Urea Nitrogen 14 mg/dL (7-20) 9 mg/dL (7-20) Creatinine 1.0 mg/dL (0.6-1.0) 0.8 mg/dL (0.6-1.0) Estimated GFR (Cockcroft-Gault) 53.5 69.2 BUN/Creatinine Ratio 14 (6-20) Glucose Level 158 mg/dL (70-99) 100 mg/dL (70-99) Calcium Level 9.2 mg/dL (8.5-10.1) 9.1 mg/dL (8.5-10.1) Magnesium Level 2.2 mg/dL (1.8-2.4) Total Bilirubin 0.6 mg/dL (0.2-1.0) Aspartate Amino Transf (AST/SGOT) 18 U/L (15-37) Alanine Aminotransferase (ALT/SGPT) 18 U/L (14-59) Alkaline Phosphatase 71 U/L (46-116) Creatine Kinase 172 U/L (26-192) Creatine Kinase MB (Mass) 4.6 ng/mL (0.0-3.6) Creatine Kinase MB Relative Index 2.7 % (0-4) Troponin I Quantitative < 0.017 ng/mL (0.000-0.055) HJ-Mka-I-Type Natriuretic Peptide 54 pg/mL (0-449) Total Protein 7.7 g/dL (6.4-8.2) Albumin 3.7 g/dL (3.4-5.0) Albumin/Globulin Ratio 0.9 (1.0-1.7) Lipase 184 U/L (73-393) Urine Collection Type Unknown Urine Color Rosangela Urine Clarity Clear Urine pH 5.0 Urine Specific [place] >=1.030 Urine Protein 30 mg/dL (NEG-TRACE) Urine Glucose (UA) Negative mg/dL (NEG) Urine Ketones (Stick) Negative mg/dL (NEG) Urine Blood Moderate (NEG) Urine Nitrite Negative (NEG) Urine Bilirubin Small (NEG) Urine Urobilinogen Dipstick 1.0 mg/dL (0.2 mg/dL) Urine Leukocyte Esterase Small (NEG) Urine RBC 6-10 /HPF (0-2) Urine WBC 1-4 /HPF (0-4) Urine Squamous Epithelial Cells Many /LPF Urine Bacteria Mod /HPF (0-FEW) Urine Hyaline Casts Many /HPF Urine Mucus Marked /LPF Urine Opiates Screen Neg (NEG) Urine Methadone Screen Neg (NEG) Urine Barbiturates Neg (NEG) Urine Phencyclidine Screen Neg (NEG) Urine Amphetamine/Methamphetamine Neg (NEG) Urine Benzodiazepines Screen Neg (NEG) Urine Cocaine Screen Neg (NEG) Urine Cannabinoids Screen Neg (NEG) Urine Ethyl Alcohol Neg (NEG) Assessment and Plan Assessmemt and Plan Problems Medical Problems: (1) SBO (small bowel obstruction) Status: Acute Comment Review of Relevant I have reviewed the following items missael (where applicable) has been applied. Labs Laboratory Tests Test 09/06/19 14:15 09/06/19 15:00 09/07/19 07:30 White Blood Count 14.4 x10^3/uL (4.0-11.0) 11.9 x10^3/uL (4.0-11.0) Red Blood Count 4.80 x10^6/uL (3.50-5.40) 4.43 x10^6/uL (3.50-5.40) Hemoglobin 14.9 g/dL (12.0-15.5) 13.4 g/dL (12.0-15.5) Hematocrit 43.9 % (36.0-47.0) 40.6 % (36.0-47.0) Mean Corpuscular Volume 91 fL (79-100) 92 fL (79-100) Mean Corpuscular Hemoglobin 31 pg (25-35) 30 pg (25-35) Mean Corpuscular Hemoglobin Concent 34 g/dL (31-37) 33 g/dL (31-37) Red Cell Distribution Width 13.9 % (11.5-14.5) 13.4 % (11.5-14.5) Platelet Count 270 x10^3/uL (140-400) 285 x10^3/uL (140-400) Neutrophils (%) (Auto) 89 % (31-73) 75 % (31-73) Lymphocytes (%) (Auto) 8 % (24-48) 18 % (24-48) Monocytes (%) (Auto) 3 % (0-9) 7 % (0-9) Eosinophils (%) (Auto) 0 % (0-3) 0 % (0-3) Basophils (%) (Auto) 0 % (0-3) 0 % (0-3) Neutrophils # (Auto) 12.8 x10^3/uL (1.8-7.7) 8.9 x10^3/uL (1.8-7.7) Lymphocytes # (Auto) 1.1 x10^3/uL (1.0-4.8) 2.1 x10^3/uL (1.0-4.8) Monocytes # (Auto) 0.4 x10^3/uL (0.0-1.1) 0.8 x10^3/uL (0.0-1.1) Eosinophils # (Auto) 0.0 x10^3/uL (0.0-0.7) 0.0 x10^3/uL (0.0-0.7) Basophils # (Auto) 0.0 x10^3/uL (0.0-0.2) 0.0 x10^3/uL (0.0-0.2) Segmented Neutrophils % 83 % (35-66) Band Neutrophils % 7 % (0-9) Lymphocytes % 8 % (24-48) Monocytes % 2 % (0-10) Platelet Estimate Adequate (ADEQUATE) Large Platelets Few Sodium Level 142 mmol/L (136-145) 144 mmol/L (136-145) Potassium Level 3.8 mmol/L (3.5-5.1) 3.9 mmol/L (3.5-5.1) Chloride Level 104 mmol/L (98-107) 108 mmol/L (98-107) Carbon Dioxide Level 27 mmol/L (21-32) 25 mmol/L (21-32) Anion Gap 11 (6-14) 11 (6-14) Blood Urea Nitrogen 14 mg/dL (7-20) 9 mg/dL (7-20) Creatinine 1.0 mg/dL (0.6-1.0) 0.8 mg/dL (0.6-1.0) Estimated GFR (Cockcroft-Gault) 53.5 69.2 BUN/Creatinine Ratio 14 (6-20) Glucose Level 158 mg/dL (70-99) 100 mg/dL (70-99) Calcium Level 9.2 mg/dL (8.5-10.1) 9.1 mg/dL (8.5-10.1) Magnesium Level 2.2 mg/dL (1.8-2.4) Total Bilirubin 0.6 mg/dL (0.2-1.0) Aspartate Amino Transf (AST/SGOT) 18 U/L (15-37) Alanine Aminotransferase (ALT/SGPT) 18 U/L (14-59) Alkaline Phosphatase 71 U/L (46-116) Creatine Kinase 172 U/L (26-192) Creatine Kinase MB (Mass) 4.6 ng/mL (0.0-3.6) Creatine Kinase MB Relative Index 2.7 % (0-4) Troponin I Quantitative < 0.017 ng/mL (0.000-0.055) WF-Ddh-P-Type Natriuretic Peptide 54 pg/mL (0-449) Total Protein 7.7 g/dL (6.4-8.2) Albumin 3.7 g/dL (3.4-5.0) Albumin/Globulin Ratio 0.9 (1.0-1.7) Lipase 184 U/L (73-393) Urine Collection Type Unknown Urine Color Rosangela Urine Clarity Clear Urine pH 5.0 Urine Specific [place] >=1.030 Urine Protein 30 mg/dL (NEG-TRACE) Urine Glucose (UA) Negative mg/dL (NEG) Urine Ketones (Stick) Negative mg/dL (NEG) Urine Blood Moderate (NEG) Urine Nitrite Negative (NEG) Urine Bilirubin Small (NEG) Urine Urobilinogen Dipstick 1.0 mg/dL (0.2 mg/dL) Urine Leukocyte Esterase Small (NEG) Urine RBC 6-10 /HPF (0-2) Urine WBC 1-4 /HPF (0-4) Urine Squamous Epithelial Cells Many /LPF Urine Bacteria Mod /HPF (0-FEW) Urine Hyaline Casts Many /HPF Urine Mucus Marked /LPF Urine Opiates Screen Neg (NEG) Urine Methadone Screen Neg (NEG) Urine Barbiturates Neg (NEG) Urine Phencyclidine Screen Neg (NEG) Urine Amphetamine/Methamphetamine Neg (NEG) Urine Benzodiazepines Screen Neg (NEG) Urine Cocaine Screen Neg (NEG) Urine Cannabinoids Screen Neg (NEG) Urine Ethyl Alcohol Neg (NEG) Laboratory Tests Test 09/06/19 14:15 09/06/19 15:00 09/07/19 07:30 White Blood Count 14.4 x10^3/uL (4.0-11.0) 11.9 x10^3/uL (4.0-11.0) Red Blood Count 4.80 x10^6/uL (3.50-5.40) 4.43 x10^6/uL (3.50-5.40) Hemoglobin 14.9 g/dL (12.0-15.5) 13.4 g/dL (12.0-15.5) Hematocrit 43.9 % (36.0-47.0) 40.6 % (36.0-47.0) Mean Corpuscular Volume 91 fL (79-100) 92 fL (79-100) Mean Corpuscular Hemoglobin 31 pg (25-35) 30 pg (25-35) Mean Corpuscular Hemoglobin Concent 34 g/dL (31-37) 33 g/dL (31-37) Red Cell Distribution Width 13.9 % (11.5-14.5) 13.4 % (11.5-14.5) Platelet Count 270 x10^3/uL (140-400) 285 x10^3/uL (140-400) Neutrophils (%) (Auto) 89 % (31-73) 75 % (31-73) Lymphocytes (%) (Auto) 8 % (24-48) 18 % (24-48) Monocytes (%) (Auto) 3 % (0-9) 7 % (0-9) Eosinophils (%) (Auto) 0 % (0-3) 0 % (0-3) Basophils (%) (Auto) 0 % (0-3) 0 % (0-3) Neutrophils # (Auto) 12.8 x10^3/uL (1.8-7.7) 8.9 x10^3/uL (1.8-7.7) Lymphocytes # (Auto) 1.1 x10^3/uL (1.0-4.8) 2.1 x10^3/uL (1.0-4.8) Monocytes # (Auto) 0.4 x10^3/uL (0.0-1.1) 0.8 x10^3/uL (0.0-1.1) Eosinophils # (Auto) 0.0 x10^3/uL (0.0-0.7) 0.0 x10^3/uL (0.0-0.7) Basophils # (Auto) 0.0 x10^3/uL (0.0-0.2) 0.0 x10^3/uL (0.0-0.2) Segmented Neutrophils % 83 % (35-66) Band Neutrophils % 7 % (0-9) Lymphocytes % 8 % (24-48) Monocytes % 2 % (0-10) Platelet Estimate Adequate (ADEQUATE) Large Platelets Few Sodium Level 142 mmol/L (136-145) 144 mmol/L (136-145) Potassium Level 3.8 mmol/L (3.5-5.1) 3.9 mmol/L (3.5-5.1) Chloride Level 104 mmol/L (98-107) 108 mmol/L (98-107) Carbon Dioxide Level 27 mmol/L (21-32) 25 mmol/L (21-32) Anion Gap 11 (6-14) 11 (6-14) Blood Urea Nitrogen 14 mg/dL (7-20) 9 mg/dL (7-20) Creatinine 1.0 mg/dL (0.6-1.0) 0.8 mg/dL (0.6-1.0) Estimated GFR (Cockcroft-Gault) 53.5 69.2 BUN/Creatinine Ratio 14 (6-20) Glucose Level 158 mg/dL (70-99) 100 mg/dL (70-99) Calcium Level 9.2 mg/dL (8.5-10.1) 9.1 mg/dL (8.5-10.1) Magnesium Level 2.2 mg/dL (1.8-2.4) Total Bilirubin 0.6 mg/dL (0.2-1.0) Aspartate Amino Transf (AST/SGOT) 18 U/L (15-37) Alanine Aminotransferase (ALT/SGPT) 18 U/L (14-59) Alkaline Phosphatase 71 U/L (46-116) Creatine Kinase 172 U/L (26-192) Creatine Kinase MB (Mass) 4.6 ng/mL (0.0-3.6) Creatine Kinase MB Relative Index 2.7 % (0-4) Troponin I Quantitative < 0.017 ng/mL (0.000-0.055) MB-Vsr-Q-Type Natriuretic Peptide 54 pg/mL (0-449) Total Protein 7.7 g/dL (6.4-8.2) Albumin 3.7 g/dL (3.4-5.0) Albumin/Globulin Ratio 0.9 (1.0-1.7) Lipase 184 U/L (73-393) Urine Collection Type Unknown Urine Color Rosangela Urine Clarity Clear Urine pH 5.0 Urine Specific [place] >=1.030 Urine Protein 30 mg/dL (NEG-TRACE) Urine Glucose (UA) Negative mg/dL (NEG) Urine Ketones (Stick) Negative mg/dL (NEG) Urine Blood Moderate (NEG) Urine Nitrite Negative (NEG) Urine Bilirubin Small (NEG) Urine Urobilinogen Dipstick 1.0 mg/dL (0.2 mg/dL) Urine Leukocyte Esterase Small (NEG) Urine RBC 6-10 /HPF (0-2) Urine WBC 1-4 /HPF (0-4) Urine Squamous Epithelial Cells Many /LPF Urine Bacteria Mod /HPF (0-FEW) Urine Hyaline Casts Many /HPF Urine Mucus Marked /LPF Urine Opiates Screen Neg (NEG) Urine Methadone Screen Neg (NEG) Urine Barbiturates Neg (NEG) Urine Phencyclidine Screen Neg (NEG) Urine Amphetamine/Methamphetamine Neg (NEG) Urine Benzodiazepines Screen Neg (NEG) Urine Cocaine Screen Neg (NEG) Urine Cannabinoids Screen Neg (NEG) Urine Ethyl Alcohol Neg (NEG) Medications Current Medications Fentanyl Citrate (Fentanyl 2ml Vial) 25 mcg PRN Q15MIN PRN IV PAIN GREATER THAN 3/10 Last administered on 09/06/19at 16:36; Start 09/06/19 at 14:30; Stop 09/06/19 at 21:00; Status DC Famotidine (Pepcid Vial) 20 mg 1X ONCE IVP Last administered on 09/06/19at 15:00; Start 09/06/19 at 14:30; Stop 09/06/19 at 14:35; Status DC Ondansetron HCl (Zofran) 4 mg 1X ONCE IVP Last administered on 09/06/19at 14:59; Start 09/06/19 at 14:30; Stop 09/06/19 at 14:35; Status DC Sodium Chloride 1,000 ml @ 1,000 mls/hr 1X ONCE IV Last administered on 09/06/19at 14:33; Start 09/06/19 at 14:30; Stop 09/06/19 at 15:29; Status DC Dicyclomine HCl (Bentyl) 20 mg 1X ONCE PO Last administered on 09/06/19at 14:58; Start 09/06/19 at 14:30; Stop 09/06/19 at 14:35; Status DC Iohexol (Omnipaque 300 Mg/ml) 60 ml 1X ONCE IV Last administered on 09/06/19at 15:00; Start 09/06/19 at 15:00; Stop 09/06/19 at 15:01; Status DC Sodium Chloride 1,000 ml @ 100 mls/hr Q10H IV Last administered on 09/07/19at 03:15; Start 09/06/19 at 17:05 Ondansetron HCl (Zofran) 4 mg PRN Q4HRS PRN IV NAUSEA/VOMITING, 1st CHOICE Last administered on 09/07/19at 03:11; Start 09/06/19 at 17:15 Acetaminophen (Tylenol) 650 mg PRN Q4HRS PRN PO TEMP OVER 100.4F OR MILD PAIN; Start 09/06/19 at 17:15 Acetaminophen (Tylenol Supp) 650 mg PRN Q4HRS PRN TX TEMP OVER 100.4F OR MILD PAIN; Start 09/06/19 at 17:15 Docusate Sodium (Colace) 100 mg PRN BID PRN PO CONSTIPATION; Start 09/06/19 at 17:15 Albuterol Sulfate (Ventolin Neb Soln) 2.5 mg PRN Q4HRS PRN NEB SHORTNESS OF BREATH; Start 09/06/19 at 17:15 Guaifenesin (Robitussin) 200 mg PRN Q4HRS PRN PO COUGH; Start 09/06/19 at 17:15 Lorazepam (Ativan Inj) 1 mg PRN Q4HRS PRN IV ANXIETY / AGITATION; Start 09/06/19 at 17:15 Ondansetron HCl (Zofran) 4 mg PRN Q8HRS PRN IV NAUSEA/VOMITING; Start 09/06/19 at 18:15; Stop 09/07/19 at 18:14; Status UNV Morphine Sulfate (Morphine Sulfate) 2 mg PRN Q2HR PRN IV PAIN; Start 09/06/19 at 18:15; Stop 09/06/19 at 18:45; Status DC Sodium Chloride 1,000 ml @ 100 mls/hr 1X ONCE IV ; Start 09/06/19 at 18:15; Stop 09/07/19 at 04:14; Status UNV Prochlorperazine Edisylate (Compazine) 10 mg PRN Q8HRS PRN IV NAUSEA, 2nd CHOICE; Start 09/06/19 at 18:15 Morphine Sulfate (Morphine Sulfate) 2 mg PRN Q2HR PRN IV PAIN Last administered on 09/07/19at 03:15; Start 09/06/19 at 18:45 Famotidine (Pepcid Vial) 20 mg BID IVP Last administered on 09/06/19at 21:12; Start 09/06/19 at 21:00 Active Scripts Active Reported Acetaminophen 500 Mg Tablet 1 Tab PO PRN Q6HRS PRN 15 Days Aspirin 81 Mg Tab.chew 1 Tab PO DAILY Triamterene 50 Mg Capsule 25 Mg PO QHS Verapamil Er (Verapamil Hcl) 240 Mg Cap24h.pel 1 Cap PO HS Travatan Z (Travoprost) 5 Ml Drops 5 Ml OU QHS Celebrex (Celecoxib) 200 Mg Capsule 1 Cap PO DAILY Vitals/I & O Vital Sign - Last 24 Hours 09/06/19 09/06/19 09/06/19 09/06/19 13:38 14:05 14:35 15:05 Temp 98.1 98.1 Pulse 71 74 58 71 Resp 16 14 15 26 B/P (MAP) 159/72 (101) 158/78 (104) 151/67 (95) 132/61 (84) Pulse Ox 98 96 100 97 O2 Delivery Room Air Room Air Room Air 09/06/19 09/06/19 09/06/19 09/06/19 16:36 17:15 19:48 20:00 Temp 98.1 98.1 Pulse 62 Resp 20 20 18 B/P (MAP) 129/45 (73) Pulse Ox 95 96 97 O2 Delivery Room Air Room Air Room Air 09/06/19 09/07/19 09/07/19 09/07/19 23:37 03:15 03:24 03:45 Temp 98.3 98.3 98.3 98.3 Pulse 71 99 Resp 18 20 B/P (MAP) 126/42 (70) 139/70 (93) Pulse Ox 95 96 O2 Delivery Room Air Room Air Room Air Room Air FRANSISCO ARRIETA MD Sep 07, 2019 09:10
--- NOTE | 2019-09-07 09:24 | NUR ---
SW following. Discussed with RN, pt is from home with . Pt currently NPO to see if bowel obstruction resolves itself. RN advised no TPN for now. SW will continue to follow.
[2019-09-07] MEDS: FAMOTIDINE 20 MG/2 ML VIAL IVP SCH ×2 (09:53→21:24)
[2019-09-07 11:00] VITALS: BP 134/54
--- NOTE | 2019-09-07 11:38 | PDOC2 ---
GI CONSULT Reason For Consult: Partial SBO HPI: HPI: Pleasant 79 y/o female admitted through ER yesterday afternoon. Ate chili from [employer] on Wednesday night and then had leftovers Wednesday. Then started "feeling bad." Tried Tums (which usually provides relief for abdominal discomfort) but not effective and noted they in 2013. Tried to rest in bed, then developed severe stomach pains and started retching. Sat in the rest room and passed "three small turds." Went back to bed but then returned to restroom w/ urge to stool. Tried to stand up but needed help from family - felt weak and feet felt like "big tree trunks." Also began to feel bloated. Called 911 and en route to the hospital, had significant vomiting. Leukocytosis noted and CT suggested low grade or partial small bowel obstruction along w/ possible fatty liver and moderate colonic stool content. She says NGT placement was suggested (?attempted) but she declined - her brother had COPD and had a tube placed in the ER and then . She had some nausea and stomach pain around 3:00 a.m. that improved w/ medications - neither symptoms has recurred since, though she does have some abdominal soreness. H/o GERD (?previously on PPI) but now infrequently bothersome and essentially untreated (except for occasional Tums). No dysphagia. No chronic n/v or abd pain. Typically no diarrhea or constipation. Per office notes, fiber recommended in the past for dry stools. No hematemesis, hematochezia, or melena. No weight loss. No previous EGD. Colonoscopy 10/08/[address] Segundo for screening and h/o colon polyps showed two 3-4mm adenomatous polyps in descending colon, normal mucosa in the entire colon, and internal hemorrhoids. Had one adenomatous polyp on colonoscopy in 2011 and no polyps on colonoscopy in 2002. No GB, liver, pancreas, or PUD history. Chronic arthritis pain on Celebrex and Tylenol, also takes ASA 81mg QD. PMH: PMH: HTN, glaucoma, OA, fibrocystic breast disease, adenomatous colon polyps tubal ligation, hysterectomy, left breast biopsy (benign), bilateral knee replacements, bilateral cataract extraction FH: Family History: Cancer (lung, breast, lymphoma), CVA, Hypertension, Other (sister - colon polyps) Social History: Smoke: No ALCOHOL: none Drugs: None ROS: GEN: Denies fevers, chills, sweats HEENT: Denies blurred vision, sore throat CV: Denies chest pain RESP: Denies shortness of air, cough GI: Per HPI : Denies hematuria, dysuria ENDO: Denies weight changes NEURO: Denies confusion, dizziness MSK: Denies weakness, joint pain/swelling SKIN: Denies jaundice, pruritus Vitals: Vitals: Vital Signs Date Time Temp Pulse Resp B/P (MAP) Pulse Ox O2 Delivery O2 Flow Rate FiO2 09/07/19 07:00 98.3 61 18 129/59 (82) 93 Room Air 98.3 Labs: Labs: Laboratory Tests Test 09/06/19 14:15 09/06/19 15:00 09/07/19 07:30 White Blood Count 14.4 x10^3/uL (4.0-11.0) 11.9 x10^3/uL (4.0-11.0) Red Blood Count 4.80 x10^6/uL (3.50-5.40) 4.43 x10^6/uL (3.50-5.40) Hemoglobin 14.9 g/dL (12.0-15.5) 13.4 g/dL (12.0-15.5) Hematocrit 43.9 % (36.0-47.0) 40.6 % (36.0-47.0) Mean Corpuscular Volume 91 fL (79-100) 92 fL (79-100) Mean Corpuscular Hemoglobin 31 pg (25-35) 30 pg (25-35) Mean Corpuscular Hemoglobin Concent 34 g/dL (31-37) 33 g/dL (31-37) Red Cell Distribution Width 13.9 % (11.5-14.5) 13.4 % (11.5-14.5) Platelet Count 270 x10^3/uL (140-400) 285 x10^3/uL (140-400) Neutrophils (%) (Auto) 89 % (31-73) 75 % (31-73) Lymphocytes (%) (Auto) 8 % (24-48) 18 % (24-48) Monocytes (%) (Auto) 3 % (0-9) 7 % (0-9) Eosinophils (%) (Auto) 0 % (0-3) 0 % (0-3) Basophils (%) (Auto) 0 % (0-3) 0 % (0-3) Neutrophils # (Auto) 12.8 x10^3/uL (1.8-7.7) 8.9 x10^3/uL (1.8-7.7) Lymphocytes # (Auto) 1.1 x10^3/uL (1.0-4.8) 2.1 x10^3/uL (1.0-4.8) Monocytes # (Auto) 0.4 x10^3/uL (0.0-1.1) 0.8 x10^3/uL (0.0-1.1) Eosinophils # (Auto) 0.0 x10^3/uL (0.0-0.7) 0.0 x10^3/uL (0.0-0.7) Basophils # (Auto) 0.0 x10^3/uL (0.0-0.2) 0.0 x10^3/uL (0.0-0.2) Segmented Neutrophils % 83 % (35-66) Band Neutrophils % 7 % (0-9) Lymphocytes % 8 % (24-48) Monocytes % 2 % (0-10) Platelet Estimate Adequate (ADEQUATE) Large Platelets Few Sodium Level 142 mmol/L (136-145) 144 mmol/L (136-145) Potassium Level 3.8 mmol/L (3.5-5.1) 3.9 mmol/L (3.5-5.1) Chloride Level 104 mmol/L (98-107) 108 mmol/L (98-107) Carbon Dioxide Level 27 mmol/L (21-32) 25 mmol/L (21-32) Anion Gap 11 (6-14) 11 (6-14) Blood Urea Nitrogen 14 mg/dL (7-20) 9 mg/dL (7-20) Creatinine 1.0 mg/dL (0.6-1.0) 0.8 mg/dL (0.6-1.0) Estimated GFR (Cockcroft-Gault) 53.5 69.2 BUN/Creatinine Ratio 14 (6-20) Glucose Level 158 mg/dL (70-99) 100 mg/dL (70-99) Calcium Level 9.2 mg/dL (8.5-10.1) 9.1 mg/dL (8.5-10.1) Magnesium Level 2.2 mg/dL (1.8-2.4) Total Bilirubin 0.6 mg/dL (0.2-1.0) Aspartate Amino Transf (AST/SGOT) 18 U/L (15-37) Alanine Aminotransferase (ALT/SGPT) 18 U/L (14-59) Alkaline Phosphatase 71 U/L (46-116) Creatine Kinase 172 U/L (26-192) Creatine Kinase MB (Mass) 4.6 ng/mL (0.0-3.6) Creatine Kinase MB Relative Index 2.7 % (0-4) Troponin I Quantitative < 0.017 ng/mL (0.000-0.055) XH-Iaq-H-Type Natriuretic Peptide 54 pg/mL (0-449) Total Protein 7.7 g/dL (6.4-8.2) Albumin 3.7 g/dL (3.4-5.0) Albumin/Globulin Ratio 0.9 (1.0-1.7) Lipase 184 U/L (73-393) Urine Collection Type Unknown Urine Color Rosangela Urine Clarity Clear Urine pH 5.0 Urine Specific [place] >=1.030 Urine Protein 30 mg/dL (NEG-TRACE) Urine Glucose (UA) Negative mg/dL (NEG) Urine Ketones (Stick) Negative mg/dL (NEG) Urine Blood Moderate (NEG) Urine Nitrite Negative (NEG) Urine Bilirubin Small (NEG) Urine Urobilinogen Dipstick 1.0 mg/dL (0.2 mg/dL) Urine Leukocyte Esterase Small (NEG) Urine RBC 6-10 /HPF (0-2) Urine WBC 1-4 /HPF (0-4) Urine Squamous Epithelial Cells Many /LPF Urine Bacteria Mod /HPF (0-FEW) Urine Hyaline Casts Many /HPF Urine Mucus Marked /LPF Urine Opiates Screen Neg (NEG) Urine Methadone Screen Neg (NEG) Urine Barbiturates Neg (NEG) Urine Phencyclidine Screen Neg (NEG) Urine Amphetamine/Methamphetamine Neg (NEG) Urine Benzodiazepines Screen Neg (NEG) Urine Cocaine Screen Neg (NEG) Urine Cannabinoids Screen Neg (NEG) Urine Ethyl Alcohol Neg (NEG) Allergies: Coded Allergies: guanfacine (Verified Allergy, Intermediate, 09/06/19) lisinopril (Verified Allergy, Intermediate, 09/06/19) Medications: Current Medications Medications (Trade) Dose Ordered Sig/Brianna Route PRN Reason Start Time Stop Time Status Last Admin Dose Admin Fentanyl Citrate (Fentanyl 2ml Vial) 25 mcg PRN Q15MIN PRN IV PAIN GREATER THAN 3/10 09/06/19 14:30 09/06/19 21:00 DC 09/06/19 16:36 Famotidine (Pepcid Vial) 20 mg 1X ONCE IVP 09/06/19 14:30 09/06/19 14:35 DC 09/06/19 15:00 Ondansetron HCl (Zofran) 4 mg 1X ONCE IVP 09/06/19 14:30 09/06/19 14:35 DC 09/06/19 14:59 Sodium Chloride 1,000 ml @ 1,000 mls/hr 1X ONCE IV 09/06/19 14:30 09/06/19 15:29 DC 09/06/19 14:33 Dicyclomine HCl (Bentyl) 20 mg 1X ONCE PO 09/06/19 14:30 09/06/19 14:35 DC 09/06/19 14:58 Iohexol (Omnipaque 300 Mg/ml) 60 ml 1X ONCE IV 09/06/19 15:00 09/06/19 15:01 DC 09/06/19 15:00 Sodium Chloride 1,000 ml @ 100 mls/hr Q10H IV 09/06/19 17:05 09/07/19 03:15 Ondansetron HCl (Zofran) 4 mg PRN Q4HRS PRN IV NAUSEA/VOMITING, 1st CHOICE 09/06/19 17:15 09/07/19 03:11 Morphine Sulfate (Morphine Sulfate) 2 mg PRN Q2HR PRN IV PAIN 09/06/19 18:45 09/07/19 03:15 Famotidine (Pepcid Vial) 20 mg BID IVP 09/06/19 21:00 09/07/19 09:53 Imaging: Imaging: CT A/P 09/06/19 FINDINGS: Lower chest: Linear opacities in lower lobes likely scarring/atelectasis. Abdomen and pelvis: Liver and biliary system: Hepatic hypoattenuation may be seen with fatty liver. No focal liver lesion. Gallbladder is normal. No biliary duct dilatation. Spleen: Unremarkable Pancreas: Pancreas is unremarkable. Adrenal glands: Unremarkable Kidneys: Symmetric nephrograms. Subcentimeter hypodense left upper pole renal lesion is too small to accurately characterize. No hydronephrosis orhydroureter. Lymph nodes/retroperitoneum: No abdominal or pelvic lymphadenopathy. Vessels: Aorta is normal in caliber. Bowel/Peritoneal cavity: Moderate colonic stool content is seen. There is diffuse fluid distention of the small bowel measuring up to 2.8 cm. There is also small bowel feces sign. In the right lower quadrant there is decompressed distal small bowel to the level of the colon. Appendix is normal. No abdominal or pelvic ascites. Abdominal wall: Unremarkable Bladder: Bladder is decompressed but otherwise unremarkable. Bones: Degenerative changes of the spine are seen. No aggressive osseous lesion is seen. IMPRESSION: 1. Although there is no evidence for complete small bowel obstruction, there is suggestion for low-grade or partial small bowel obstruction given small bowel feces sign and relative decompression beyond the transition point in the right lower quadrant. 2. Appendix is normal. 3. Gallbladder is normal. 4. Relative hepatic hypoattenuation may be seen with fatty liver. AAS 09/06/19 IMPRESSION: Multiple dilated loops of small bowel consistent with history of partial small bowel obstruction. Continued radiographic follow-up is recommended. PE: GEN: NAD, many family members present HEENT: Atraumatic, PERRL LUNGS: CTAB anteriorly HEART: RRR ABD: some quiet gurgles, soft, epigastric to LUQ soreness EXTREMITY: No edema SKIN: No rashes, no jaundice NEURO/PSYCH: A & O 3 A/P: A/P: Abdominal pain, n/v, bloating, weakness - began 09/06 after eating leftover chili Leukocytosis - better Abnormal CT - low grade/partial SBO H/o GERD - not as bothersome now, untreated CRC screen, h/o adenomatous colon polyps, FH colon polyps - UTD (2018) Possible fatty liver OA, NSAID use -- Spent time w/ pt and supportive family - all questions answered to their satisfaction. Nausea and improved abd pain since 3:00 a.m. No flatus/stool yet. A few bowel sounds on exam. Okay to have a few ice chips. Recheck x-ray. Continue IVF. Agree w/ acid- steel sash erector. She's not interested in NGT at any point. Surgery consult pending. Pain control per Dr. Sanchez. Will review all w/ Dr. Segundo. LUCRECIA CORDON Sep 07, 2019 11:38
--- NOTE | 2019-09-07 12:09 | PDOC2 ---
GALDINO SAWYER [employer] 09/07/19 1209: CONSULT Date of Consult Date of Consult DATE: 09/07/19 TIME: 11:54 Reason for Consult Reason for Consult: SBO Referring Physician Referring Physician: ER Identification/Chief Complaint Chief Complaint abdominal pain Source Source: Chart review, Patient History of Present Illness Reason for Visit: Acute onset of abdominal pain and dry heaves after eating chili yesterday(it was a couple days old). Reports belching, no flatus, distention of abdomen. Currently still with belching, no flatus, however pain and distention have improved. Last stool Wednesday. No diarrhea. Past Medical History Cardiovascular: HTN Past Surgical History Past Surgical History: Tubal Ligation, Hysterectomy Family History Family History: Other (noncontributory ) Social History No ALCOHOL: none Drugs: None Current Problem List Problem List Problems Medical Problems: (1) SBO (small bowel obstruction) Status: Acute Current Medications Current Medications Current Medications Fentanyl Citrate (Fentanyl 2ml Vial) 25 mcg PRN Q15MIN PRN IV PAIN GREATER THAN 3/10 Last administered on 09/06/19at 16:36; Start 09/06/19 at 14:30; Stop 09/06/19 at 21:00; Status DC Famotidine (Pepcid Vial) 20 mg 1X ONCE IVP Last administered on 09/06/19at 15:00; Start 09/06/19 at 14:30; Stop 09/06/19 at 14:35; Status DC Ondansetron HCl (Zofran) 4 mg 1X ONCE IVP Last administered on 09/06/19at 14:59; Start 09/06/19 at 14:30; Stop 09/06/19 at 14:35; Status DC Sodium Chloride 1,000 ml @ 1,000 mls/hr 1X ONCE IV Last administered on 09/06/19at 14:33; Start 09/06/19 at 14:30; Stop 09/06/19 at 15:29; Status DC Dicyclomine HCl (Bentyl) 20 mg 1X ONCE PO Last administered on 09/06/19at 14:58; Start 09/06/19 at 14:30; Stop 09/06/19 at 14:35; Status DC Iohexol (Omnipaque 300 Mg/ml) 60 ml 1X ONCE IV Last administered on 09/06/19at 15:00; Start 09/06/19 at 15:00; Stop 09/06/19 at 15:01; Status DC Sodium Chloride 1,000 ml @ 100 mls/hr Q10H IV Last administered on 09/07/19at 03:15; Start 09/06/19 at 17:05 Ondansetron HCl (Zofran) 4 mg PRN Q4HRS PRN IV NAUSEA/VOMITING, 1st CHOICE Last administered on 09/07/19at 03:11; Start 09/06/19 at 17:15 Acetaminophen (Tylenol) 650 mg PRN Q4HRS PRN PO TEMP OVER 100.4F OR MILD PAIN; Start 09/06/19 at 17:15 Acetaminophen (Tylenol Supp) 650 mg PRN Q4HRS PRN NC TEMP OVER 100.4F OR MILD PAIN; Start 09/06/19 at 17:15 Docusate Sodium (Colace) 100 mg PRN BID PRN PO CONSTIPATION; Start 09/06/19 at 17:15 Albuterol Sulfate (Ventolin Neb Soln) 2.5 mg PRN Q4HRS PRN NEB SHORTNESS OF BREATH; Start 09/06/19 at 17:15 Guaifenesin (Robitussin) 200 mg PRN Q4HRS PRN PO COUGH; Start 09/06/19 at 17:15 Lorazepam (Ativan Inj) 1 mg PRN Q4HRS PRN IV ANXIETY / AGITATION; Start 09/06/19 at 17:15 Ondansetron HCl (Zofran) 4 mg PRN Q8HRS PRN IV NAUSEA/VOMITING; Start 09/06/19 at 18:15; Stop 09/07/19 at 18:14; Status UNV Morphine Sulfate (Morphine Sulfate) 2 mg PRN Q2HR PRN IV PAIN; Start 09/06/19 at 18:15; Stop 09/06/19 at 18:45; Status DC Sodium Chloride 1,000 ml @ 100 mls/hr 1X ONCE IV ; Start 09/06/19 at 18:15; Stop 09/07/19 at 04:14; Status UNV Prochlorperazine Edisylate (Compazine) 10 mg PRN Q8HRS PRN IV NAUSEA, 2nd CHOICE; Start 09/06/19 at 18:15 Morphine Sulfate (Morphine Sulfate) 2 mg PRN Q2HR PRN IV PAIN Last administered on 09/07/19at 03:15; Start 09/06/19 at 18:45 Famotidine (Pepcid Vial) 20 mg BID IVP Last administered on 09/07/19at 09:53; Start 09/06/19 at 21:00 Active Scripts Active Reported Acetaminophen 500 Mg Tablet 1 Tab PO PRN Q6HRS PRN 15 Days Aspirin 81 Mg Tab.chew 1 Tab PO DAILY Triamterene 50 Mg Capsule 25 Mg PO QHS Verapamil Er (Verapamil Hcl) 240 Mg Cap24h.pel 1 Cap PO HS Travatan Z (Travoprost) 5 Ml Drops 5 Ml OU QHS Celebrex (Celecoxib) 200 Mg Capsule 1 Cap PO DAILY Allergies Allergies: Coded Allergies: guanfacine (Verified Allergy, Intermediate, 09/06/19) lisinopril (Verified Allergy, Intermediate, 09/06/19) ROS General: No: Chills, Malaise, Other (fevers ) PSYCHOLOGICAL ROS: No: Anxiety, Depression Eyes: No Blurry vision, No Double vision HEENT: No: Heacaches, Sore Throat Hematological and Lymphatic: No: Bleeding Problems, Blood Clots Respiratory: No: Cough, SOB with excertion Cardiovascular: No Chest Pain, No Palpitations Gastrointestinal: Yes Other (see hpi) Genitourinary: No Dysuria, No Retention Musculoskeletal: No Joint Pain, No Muscle Pain Neurological: No Impaired Coord/balance, No Numbness/Tingling Skin: No Pruritus, No Rash Physical Exam General: Alert, Oriented X3, Cooperative HEENT: Atraumatic Lungs: Clear to auscultation Heart: Regular rate, Normal S1, Normal S2 Abdomen: Soft, Other (ND, obese abdomen) Extremities: No clubbing, No cyanosis Skin: No rashes, No breakdown Neuro: Normal gait, Normal speech Psych/Mental Status: Mental status NL, Mood NL Vitals VITALS Vital Signs Date Time Temp Pulse Resp B/P (MAP) Pulse Ox O2 Delivery O2 Flow Rate FiO2 09/07/19 07:00 98.3 61 18 129/59 (82) 93 Room Air 98.3 Labs Labs Laboratory Tests Test 09/06/19 14:15 09/06/19 15:00 09/07/19 07:30 White Blood Count 14.4 x10^3/uL (4.0-11.0) 11.9 x10^3/uL (4.0-11.0) Red Blood Count 4.80 x10^6/uL (3.50-5.40) 4.43 x10^6/uL (3.50-5.40) Hemoglobin 14.9 g/dL (12.0-15.5) 13.4 g/dL (12.0-15.5) Hematocrit 43.9 % (36.0-47.0) 40.6 % (36.0-47.0) Mean Corpuscular Volume 91 fL (79-100) 92 fL (79-100) Mean Corpuscular Hemoglobin 31 pg (25-35) 30 pg (25-35) Mean Corpuscular Hemoglobin Concent 34 g/dL (31-37) 33 g/dL (31-37) Red Cell Distribution Width 13.9 % (11.5-14.5) 13.4 % (11.5-14.5) Platelet Count 270 x10^3/uL (140-400) 285 x10^3/uL (140-400) Neutrophils (%) (Auto) 89 % (31-73) 75 % (31-73) Lymphocytes (%) (Auto) 8 % (24-48) 18 % (24-48) Monocytes (%) (Auto) 3 % (0-9) 7 % (0-9) Eosinophils (%) (Auto) 0 % (0-3) 0 % (0-3) Basophils (%) (Auto) 0 % (0-3) 0 % (0-3) Neutrophils # (Auto) 12.8 x10^3/uL (1.8-7.7) 8.9 x10^3/uL (1.8-7.7) Lymphocytes # (Auto) 1.1 x10^3/uL (1.0-4.8) 2.1 x10^3/uL (1.0-4.8) Monocytes # (Auto) 0.4 x10^3/uL (0.0-1.1) 0.8 x10^3/uL (0.0-1.1) Eosinophils # (Auto) 0.0 x10^3/uL (0.0-0.7) 0.0 x10^3/uL (0.0-0.7) Basophils # (Auto) 0.0 x10^3/uL (0.0-0.2) 0.0 x10^3/uL (0.0-0.2) Segmented Neutrophils % 83 % (35-66) Band Neutrophils % 7 % (0-9) Lymphocytes % 8 % (24-48) Monocytes % 2 % (0-10) Platelet Estimate Adequate (ADEQUATE) Large Platelets Few Sodium Level 142 mmol/L (136-145) 144 mmol/L (136-145) Potassium Level 3.8 mmol/L (3.5-5.1) 3.9 mmol/L (3.5-5.1) Chloride Level 104 mmol/L (98-107) 108 mmol/L (98-107) Carbon Dioxide Level 27 mmol/L (21-32) 25 mmol/L (21-32) Anion Gap 11 (6-14) 11 (6-14) Blood Urea Nitrogen 14 mg/dL (7-20) 9 mg/dL (7-20) Creatinine 1.0 mg/dL (0.6-1.0) 0.8 mg/dL (0.6-1.0) Estimated GFR (Cockcroft-Gault) 53.5 69.2 BUN/Creatinine Ratio 14 (6-20) Glucose Level 158 mg/dL (70-99) 100 mg/dL (70-99) Calcium Level 9.2 mg/dL (8.5-10.1) 9.1 mg/dL (8.5-10.1) Magnesium Level 2.2 mg/dL (1.8-2.4) Total Bilirubin 0.6 mg/dL (0.2-1.0) Aspartate Amino Transf (AST/SGOT) 18 U/L (15-37) Alanine Aminotransferase (ALT/SGPT) 18 U/L (14-59) Alkaline Phosphatase 71 U/L (46-116) Creatine Kinase 172 U/L (26-192) Creatine Kinase MB (Mass) 4.6 ng/mL (0.0-3.6) Creatine Kinase MB Relative Index 2.7 % (0-4) Troponin I Quantitative < 0.017 ng/mL (0.000-0.055) RU-Eun-T-Type Natriuretic Peptide 54 pg/mL (0-449) Total Protein 7.7 g/dL (6.4-8.2) Albumin 3.7 g/dL (3.4-5.0) Albumin/Globulin Ratio 0.9 (1.0-1.7) Lipase 184 U/L (73-393) Urine Collection Type Unknown Urine Color Rosangela Urine Clarity Clear Urine pH 5.0 Urine Specific [place] >=1.030 Urine Protein 30 mg/dL (NEG-TRACE) Urine Glucose (UA) Negative mg/dL (NEG) Urine Ketones (Stick) Negative mg/dL (NEG) Urine Blood Moderate (NEG) Urine Nitrite Negative (NEG) Urine Bilirubin Small (NEG) Urine Urobilinogen Dipstick 1.0 mg/dL (0.2 mg/dL) Urine Leukocyte Esterase Small (NEG) Urine RBC 6-10 /HPF (0-2) Urine WBC 1-4 /HPF (0-4) Urine Squamous Epithelial Cells Many /LPF Urine Bacteria Mod /HPF (0-FEW) Urine Hyaline Casts Many /HPF Urine Mucus Marked /LPF Urine Opiates Screen Neg (NEG) Urine Methadone Screen Neg (NEG) Urine Barbiturates Neg (NEG) Urine Phencyclidine Screen Neg (NEG) Urine Amphetamine/Methamphetamine Neg (NEG) Urine Benzodiazepines Screen Neg (NEG) Urine Cocaine Screen Neg (NEG) Urine Cannabinoids Screen Neg (NEG) Urine Ethyl Alcohol Neg (NEG) Laboratory Tests Test 09/06/19 14:15 09/06/19 15:00 09/07/19 07:30 White Blood Count 14.4 x10^3/uL (4.0-11.0) 11.9 x10^3/uL (4.0-11.0) Red Blood Count 4.80 x10^6/uL (3.50-5.40) 4.43 x10^6/uL (3.50-5.40) Hemoglobin 14.9 g/dL (12.0-15.5) 13.4 g/dL (12.0-15.5) Hematocrit 43.9 % (36.0-47.0) 40.6 % (36.0-47.0) Mean Corpuscular Volume 91 fL (79-100) 92 fL (79-100) Mean Corpuscular Hemoglobin 31 pg (25-35) 30 pg (25-35) Mean Corpuscular Hemoglobin Concent 34 g/dL (31-37) 33 g/dL (31-37) Red Cell Distribution Width 13.9 % (11.5-14.5) 13.4 % (11.5-14.5) Platelet Count 270 x10^3/uL (140-400) 285 x10^3/uL (140-400) Neutrophils (%) (Auto) 89 % (31-73) 75 % (31-73) Lymphocytes (%) (Auto) 8 % (24-48) 18 % (24-48) Monocytes (%) (Auto) 3 % (0-9) 7 % (0-9) Eosinophils (%) (Auto) 0 % (0-3) 0 % (0-3) Basophils (%) (Auto) 0 % (0-3) 0 % (0-3) Neutrophils # (Auto) 12.8 x10^3/uL (1.8-7.7) 8.9 x10^3/uL (1.8-7.7) Lymphocytes # (Auto) 1.1 x10^3/uL (1.0-4.8) 2.1 x10^3/uL (1.0-4.8) Monocytes # (Auto) 0.4 x10^3/uL (0.0-1.1) 0.8 x10^3/uL (0.0-1.1) Eosinophils # (Auto) 0.0 x10^3/uL (0.0-0.7) 0.0 x10^3/uL (0.0-0.7) Basophils # (Auto) 0.0 x10^3/uL (0.0-0.2) 0.0 x10^3/uL (0.0-0.2) Segmented Neutrophils % 83 % (35-66) Band Neutrophils % 7 % (0-9) Lymphocytes % 8 % (24-48) Monocytes % 2 % (0-10) Platelet Estimate Adequate (ADEQUATE) Large Platelets Few Sodium Level 142 mmol/L (136-145) 144 mmol/L (136-145) Potassium Level 3.8 mmol/L (3.5-5.1) 3.9 mmol/L (3.5-5.1) Chloride Level 104 mmol/L (98-107) 108 mmol/L (98-107) Carbon Dioxide Level 27 mmol/L (21-32) 25 mmol/L (21-32) Anion Gap 11 (6-14) 11 (6-14) Blood Urea Nitrogen 14 mg/dL (7-20) 9 mg/dL (7-20) Creatinine 1.0 mg/dL (0.6-1.0) 0.8 mg/dL (0.6-1.0) Estimated GFR (Cockcroft-Gault) 53.5 69.2 BUN/Creatinine Ratio 14 (6-20) Glucose Level 158 mg/dL (70-99) 100 mg/dL (70-99) Calcium Level 9.2 mg/dL (8.5-10.1) 9.1 mg/dL (8.5-10.1) Magnesium Level 2.2 mg/dL (1.8-2.4) Total Bilirubin 0.6 mg/dL (0.2-1.0) Aspartate Amino Transf (AST/SGOT) 18 U/L (15-37) Alanine Aminotransferase (ALT/SGPT) 18 U/L (14-59) Alkaline Phosphatase 71 U/L (46-116) Creatine Kinase 172 U/L (26-192) Creatine Kinase MB (Mass) 4.6 ng/mL (0.0-3.6) Creatine Kinase MB Relative Index 2.7 % (0-4) Troponin I Quantitative < 0.017 ng/mL (0.000-0.055) GF-Ufq-A-Type Natriuretic Peptide 54 pg/mL (0-449) Total Protein 7.7 g/dL (6.4-8.2) Albumin 3.7 g/dL (3.4-5.0) Albumin/Globulin Ratio 0.9 (1.0-1.7) Lipase 184 U/L (73-393) Urine Collection Type Unknown Urine Color [place]ela Urine Clarity Clear Urine pH 5.0 Urine Specific [place] >=1.030 Urine Protein 30 mg/dL (NEG-TRACE) Urine Glucose (UA) Negative mg/dL (NEG) Urine Ketones (Stick) Negative mg/dL (NEG) Urine Blood Moderate (NEG) Urine Nitrite Negative (NEG) Urine Bilirubin Small (NEG) Urine Urobilinogen Dipstick 1.0 mg/dL (0.2 mg/dL) Urine Leukocyte Esterase Small (NEG) Urine RBC 6-10 /HPF (0-2) Urine WBC 1-4 /HPF (0-4) Urine Squamous Epithelial Cells Many /LPF Urine Bacteria Mod /HPF (0-FEW) Urine Hyaline Casts Many /HPF Urine Mucus Marked /LPF Urine Opiates Screen Neg (NEG) Urine Methadone Screen Neg (NEG) Urine Barbiturates Neg (NEG) Urine Phencyclidine Screen Neg (NEG) Urine Amphetamine/Methamphetamine Neg (NEG) Urine Benzodiazepines Screen Neg (NEG) Urine Cocaine Screen Neg (NEG) Urine Cannabinoids Screen Neg (NEG) Urine Ethyl Alcohol Neg (NEG) Assessment/Plan Assessment/Plan SBO vs ileus bowel rest, hydration, pain control pt not interested in NG will repeat xrays in AM GREY WIGGINS MD 09/07/19 1224: CONSULT Assessment/Plan Assessment/Plan pt seen, interviewed and examined her and three children present at the bedside agree with Ms Sawyer's assessment explained treatment options 1) gut rest, IV fluids, observation 2) add NG tube to above 3) if unsuccessful offer l/s vs open release of obstruction Ms Quintero makes it clear she is not willing to have an NG tube placed continue current care will follow Thanks for consult GALDINO SAWYER APRN Sep 07, 2019 12:09 GREY WIGGINS MD Sep 07, 2019 12:24
[2019-09-07 15:00] VITALS: BP 141/56
--- NOTE | 2019-09-07 16:59 | RAD ---
Examination: ACUTE ABDOMEN SERIES History: Partial small bowel obstruction Comparison/Correlation: 09/06/2019 abdomen obstruction series Findings: Portable upright frontal view of the chest was obtained. Supine and upright view of the abdomen were also obtained. Heart size and pulmonary vasculature are normal. No pneumothorax. No infiltrate or pleural effusion. Fluid levels are present within small bowel loops which are not significantly distended. There is a mildly distended left upper quadrant small bowel loop present. No extraluminal gas. No suspicious abdominal calcifications. Impression: No significant change in bowel gas pattern. Electronically signed by: Braden Schulte MD (09/07/2019 4:56 PM) [facility]
[2019-09-07 19:15] VITALS: BP 123/65
[2019-09-07] MEDS: LATANOPROST 0.005% OPHTH SOLUTION 2.5ML BOTTLE. OU SCH (21:24)
[2019-09-07] MEDS: DOCUSATE SODIUM 100 MG CAPSULE. PO PRN (21:25)
[2019-09-07 23:00] VITALS: BP 123/58
[2019-09-08 03:14] VITALS: BP 131/61
[2019-09-08] MEDS: IV NORMAL SALINE 1000ML BAG 1,000 ML IV SCH ×3 (03:47→20:24)
[2019-09-08 07:00] VITALS: BP 157/73
[2019-09-08] MEDS: FAMOTIDINE 20 MG/2 ML VIAL IVP SCH ×2 (08:10→20:17)
--- NOTE | 2019-09-08 08:53 | PDOC ---
PROGRESS NOTES History of Present Illness History of Present Illness VTE Prophylaxis Ordered VTE Prophylaxis Devices: Yes VTE Pharmacological Prophylaxi: Yes Assessment/Plan Assessment/Plan Partial small bowel obstruction Multiple dilated loops of small bowel consistent with history of partial small bowel obstruction. Continued radiographic follow-up is recommended. 09/06 low-grade or partial small bowel obstruction given small bowel feces sign and relative decompression beyond the transition point in the right lower quadrant.ON CT 09/06 History of hysterectomy History of essential hypertension Morbid obesity with BMI of 45 Plan: passing gas bowel rest iv maintenance fluids surgical consultation requested DVT prophylaxis: Heparin gi following, npo 09/08 ileus slow to resolve Vitals Vitals Vital Signs Date Time Temp Pulse Resp B/P (MAP) Pulse Ox O2 Delivery O2 Flow Rate FiO2 09/08/19 07:00 98.0 84 18 157/73 (101) 98 Room Air 98.0 Physical Exam General: Alert, Oriented X3, Cooperative, No acute distress Heart: Regular rate, Normal S1, Normal S2 Lungs: Clear Abdomen: Normal bowel sounds, Soft, Other (ND, obese abdomen) Extremities: No clubbing, No cyanosis Skin: No rashes, No breakdown Labs LABS Examination: ACUTE ABDOMEN SERIES History: Partial small bowel obstruction Comparison/Correlation: 09/06/2019 abdomen obstruction series Findings: Portable upright frontal view of the chest was obtained. Supine and upright view of the abdomen were also obtained. Heart size and pulmonary vasculature are normal. No pneumothorax. No infiltrate or pleural effusion. Fluid levels are present within small bowel loops which are not significantly distended. There is a mildly distended left upper quadrant small bowel loop present. No extraluminal gas. No suspicious abdominal calcifications. Impression: No significant change in bowel gas pattern. Electronically signed by: Braden Villalba MD (09/07/2019 4:56 PM) [facility] DICTATED and SIGNED BY: BRADEN VILLALBA MD DATE: 09/07/19 0698 Assessment and Plan Assessmemt and Plan Problems Medical Problems: (1) SBO (small bowel obstruction) Status: Acute Comment Review of Relevant I have reviewed the following items missael (where applicable) has been applied. Labs Laboratory Tests Test 09/06/19 14:15 09/06/19 15:00 09/07/19 07:30 White Blood Count 14.4 x10^3/uL (4.0-11.0) 11.9 x10^3/uL (4.0-11.0) Red Blood Count 4.80 x10^6/uL (3.50-5.40) 4.43 x10^6/uL (3.50-5.40) Hemoglobin 14.9 g/dL (12.0-15.5) 13.4 g/dL (12.0-15.5) Hematocrit 43.9 % (36.0-47.0) 40.6 % (36.0-47.0) Mean Corpuscular Volume 91 fL (79-100) 92 fL (79-100) Mean Corpuscular Hemoglobin 31 pg (25-35) 30 pg (25-35) Mean Corpuscular Hemoglobin Concent 34 g/dL (31-37) 33 g/dL (31-37) Red Cell Distribution Width 13.9 % (11.5-14.5) 13.4 % (11.5-14.5) Platelet Count 270 x10^3/uL (140-400) 285 x10^3/uL (140-400) Neutrophils (%) (Auto) 89 % (31-73) 75 % (31-73) Lymphocytes (%) (Auto) 8 % (24-48) 18 % (24-48) Monocytes (%) (Auto) 3 % (0-9) 7 % (0-9) Eosinophils (%) (Auto) 0 % (0-3) 0 % (0-3) Basophils (%) (Auto) 0 % (0-3) 0 % (0-3) Neutrophils # (Auto) 12.8 x10^3/uL (1.8-7.7) 8.9 x10^3/uL (1.8-7.7) Lymphocytes # (Auto) 1.1 x10^3/uL (1.0-4.8) 2.1 x10^3/uL (1.0-4.8) Monocytes # (Auto) 0.4 x10^3/uL (0.0-1.1) 0.8 x10^3/uL (0.0-1.1) Eosinophils # (Auto) 0.0 x10^3/uL (0.0-0.7) 0.0 x10^3/uL (0.0-0.7) Basophils # (Auto) 0.0 x10^3/uL (0.0-0.2) 0.0 x10^3/uL (0.0-0.2) Segmented Neutrophils % 83 % (35-66) Band Neutrophils % 7 % (0-9) Lymphocytes % 8 % (24-48) Monocytes % 2 % (0-10) Platelet Estimate Adequate (ADEQUATE) Large Platelets Few Sodium Level 142 mmol/L (136-145) 144 mmol/L (136-145) Potassium Level 3.8 mmol/L (3.5-5.1) 3.9 mmol/L (3.5-5.1) Chloride Level 104 mmol/L (98-107) 108 mmol/L (98-107) Carbon Dioxide Level 27 mmol/L (21-32) 25 mmol/L (21-32) Anion Gap 11 (6-14) 11 (6-14) Blood Urea Nitrogen 14 mg/dL (7-20) 9 mg/dL (7-20) Creatinine 1.0 mg/dL (0.6-1.0) 0.8 mg/dL (0.6-1.0) Estimated GFR (Cockcroft-Gault) 53.5 69.2 BUN/Creatinine Ratio 14 (6-20) Glucose Level 158 mg/dL (70-99) 100 mg/dL (70-99) Calcium Level 9.2 mg/dL (8.5-10.1) 9.1 mg/dL (8.5-10.1) Magnesium Level 2.2 mg/dL (1.8-2.4) Total Bilirubin 0.6 mg/dL (0.2-1.0) Aspartate Amino Transf (AST/SGOT) 18 U/L (15-37) Alanine Aminotransferase (ALT/SGPT) 18 U/L (14-59) Alkaline Phosphatase 71 U/L (46-116) Creatine Kinase 172 U/L (26-192) Creatine Kinase MB (Mass) 4.6 ng/mL (0.0-3.6) Creatine Kinase MB Relative Index 2.7 % (0-4) Troponin I Quantitative < 0.017 ng/mL (0.000-0.055) KU-Spq-K-Type Natriuretic Peptide 54 pg/mL (0-449) Total Protein 7.7 g/dL (6.4-8.2) Albumin 3.7 g/dL (3.4-5.0) Albumin/Globulin Ratio 0.9 (1.0-1.7) Lipase 184 U/L (73-393) Urine Collection Type Unknown Urine Color Rosangela Urine Clarity Clear Urine pH 5.0 Urine Specific Hulbert >=1.030 Urine Protein 30 mg/dL (NEG-TRACE) Urine Glucose (UA) Negative mg/dL (NEG) Urine Ketones (Stick) Negative mg/dL (NEG) Urine Blood Moderate (NEG) Urine Nitrite Negative (NEG) Urine Bilirubin Small (NEG) Urine Urobilinogen Dipstick 1.0 mg/dL (0.2 mg/dL) Urine Leukocyte Esterase Small (NEG) Urine RBC 6-10 /HPF (0-2) Urine WBC 1-4 /HPF (0-4) Urine Squamous Epithelial Cells Many /LPF Urine Bacteria Mod /HPF (0-FEW) Urine Hyaline Casts Many /HPF Urine Mucus Marked /LPF Urine Opiates Screen Neg (NEG) Urine Methadone Screen Neg (NEG) Urine Barbiturates Neg (NEG) Urine Phencyclidine Screen Neg (NEG) Urine Amphetamine/Methamphetamine Neg (NEG) Urine Benzodiazepines Screen Neg (NEG) Urine Cocaine Screen Neg (NEG) Urine Cannabinoids Screen Neg (NEG) Urine Ethyl Alcohol Neg (NEG) Medications Current Medications Fentanyl Citrate (Fentanyl 2ml Vial) 25 mcg PRN Q15MIN PRN IV PAIN GREATER THAN 3/10 Last administered on 09/06/19at 16:36; Start 09/06/19 at 14:30; Stop 09/06/19 at 21:00; Status DC Famotidine (Pepcid Vial) 20 mg 1X ONCE IVP Last administered on 09/06/19at 15:00; Start 09/06/19 at 14:30; Stop 09/06/19 at 14:35; Status DC Ondansetron HCl (Zofran) 4 mg 1X ONCE IVP Last administered on 09/06/19at 14:59; Start 09/06/19 at 14:30; Stop 09/06/19 at 14:35; Status DC Sodium Chloride 1,000 ml @ 1,000 mls/hr 1X ONCE IV Last administered on 09/06/19at 14:33; Start 09/06/19 at 14:30; Stop 09/06/19 at 15:29; Status DC Dicyclomine HCl (Bentyl) 20 mg 1X ONCE PO Last administered on 09/06/19at 14:58; Start 09/06/19 at 14:30; Stop 09/06/19 at 14:35; Status DC Iohexol (Omnipaque 300 Mg/ml) 60 ml 1X ONCE IV Last administered on 09/06/19at 15:00; Start 09/06/19 at 15:00; Stop 09/06/19 at 15:01; Status DC Sodium Chloride 1,000 ml @ 100 mls/hr Q10H IV Last administered on 09/08/19at 03:47; Start 09/06/19 at 17:05 Ondansetron HCl (Zofran) 4 mg PRN Q4HRS PRN IV NAUSEA/VOMITING, 1st CHOICE Last administered on 09/07/19at 22:55; Start 09/06/19 at 17:15 Acetaminophen (Tylenol) 650 mg PRN Q4HRS PRN PO TEMP OVER 100.4F OR MILD PAIN; Start 09/06/19 at 17:15 Acetaminophen (Tylenol Supp) 650 mg PRN Q4HRS PRN DE TEMP OVER 100.4F OR MILD PAIN; Start 09/06/19 at 17:15 Docusate Sodium (Colace) 100 mg PRN BID PRN PO CONSTIPATION Last administered on 09/07/19at 21:25; Start 09/06/19 at 17:15 Albuterol Sulfate (Ventolin Neb Soln) 2.5 mg PRN Q4HRS PRN NEB SHORTNESS OF BREATH; Start 09/06/19 at 17:15 Guaifenesin (Robitussin) 200 mg PRN Q4HRS PRN PO COUGH; Start 09/06/19 at 17:15 Lorazepam (Ativan Inj) 1 mg PRN Q4HRS PRN IV ANXIETY / AGITATION; Start 09/06/19 at 17:15 Ondansetron HCl (Zofran) 4 mg PRN Q8HRS PRN IV NAUSEA/VOMITING; Start 09/06/19 at 18:15; Stop 09/07/19 at 18:14; Status UNV Morphine Sulfate (Morphine Sulfate) 2 mg PRN Q2HR PRN IV PAIN; Start 09/06/19 at 18:15; Stop 09/06/19 at 18:45; Status DC Sodium Chloride 1,000 ml @ 100 mls/hr 1X ONCE IV ; Start 09/06/19 at 18:15; Stop 09/07/19 at 04:14; Status UNV Prochlorperazine Edisylate (Compazine) 10 mg PRN Q8HRS PRN IV NAUSEA, 2nd CHOICE; Start 09/06/19 at 18:15 Morphine Sulfate (Morphine Sulfate) 2 mg PRN Q2HR PRN IV PAIN Last administered on 09/07/19at 22:54; Start 09/06/19 at 18:45 Famotidine (Pepcid Vial) 20 mg BID IVP Last administered on 09/08/19at 08:10; Start 09/06/19 at 21:00 Latanoprost (Xalatan) 1 drop QHS OU Last administered on 09/07/19at 21:24; Start 09/07/19 at 21:00 Active Scripts Active Reported Acetaminophen 500 Mg Tablet 1 Tab PO PRN Q6HRS PRN 15 Days Aspirin 81 Mg Tab.chew 1 Tab PO DAILY Triamterene 50 Mg Capsule 25 Mg PO QHS Verapamil Er (Verapamil Hcl) 240 Mg Cap24h.pel 1 Cap PO HS Travatan Z (Travoprost) 5 Ml Drops 5 Ml OU QHS Celebrex (Celecoxib) 200 Mg Capsule 1 Cap PO DAILY Vitals/I & O Vital Sign - Last 24 Hours 09/07/19 09/07/19 09/07/19 09/07/19 11:00 15:00 19:15 20:00 Temp 98.5 98.9 98.3 98.5 98.9 98.3 Pulse 83 81 86 Resp 18 18 18 B/P (MAP) 134/54 (80) 141/56 (84) 123/65 (84) Pulse Ox 96 93 95 O2 Delivery Room Air Room Air Room Air Room Air 09/07/19 09/07/19 09/07/19 09/08/19 22:54 23:00 23:24 03:14 Temp 98.4 97.9 98.4 97.9 Pulse 20 74 Resp 20 18 B/P (MAP) 123/58 (79) 131/61 (84) Pulse Ox 100 95 O2 Delivery Room Air Room Air Room Air Room Air 09/08/19 07:00 Temp 98.0 98.0 Pulse 84 Resp 18 B/P (MAP) 157/73 (101) Pulse Ox 98 O2 Delivery Room Air Intake and Output 09/07/19 09/07/19 09/08/19 15:00 23:00 07:00 Intake Total 240 ml Balance 240 ml FRANSISCO ARRIETA MD Sep 08, 2019 08:53
--- NOTE | 2019-09-08 10:56 | PDOC ---
Subjective: Subjective: Increased nausea and more abdominal pain today but has passed gas. Yesterday took a sip of water and if hurt her stomach. No vomiting, no stool. Indicates that she might be agreeable to NGT if needed. Objective: Vital Signs: Vital Signs Date Time Temp Pulse Resp B/P (MAP) Pulse Ox O2 Delivery O2 Flow Rate FiO2 09/08/19 07:00 98.0 84 18 157/73 (101) 98 Room Air 98.0 Imaging: AAS 09/07 Impression: No significant change in bowel gas pattern. AAS 09/08 pending PE: GEN: NAD, family present LUNGS: CTAB anteriorly HEART: RRR ABD: quiet BS - more evident today, mildly tender diffusely - worst in LUQ NEURO/PSYCH: A & O 3 A/P: Partial SBO -- Reports flatus but ongoing nausea and abd pain. X-ray pending, await this. If no improvement, ?NGT Note labs ordered for tomorrow. Hemodynamically unstable?: No Is patient in severe pain?: Yes Is NPO status required?: Yes LUCRECIA CORDON Sep 08, 2019 10:56
[2019-09-08 11:10] VITALS: BP 144/55
--- NOTE | 2019-09-08 11:22 | RAD ---
Examination: ACUTE ABDOMEN SERIES History: Small bowel obstruction Comparison/Correlation: 09/07/2019 abdomen obstruction series Findings: Portable upright frontal view of the chest was obtained. Supine and upright views the abdomen were obtained. Heart size and pulmonary vasculature are normal. No infiltrate or pleural effusion. Limited pulmonary inflation is noted. Mildly distended small bowel loops are present. There is slight improvement in the interval however. No extraluminal gas suggested. Impression: No infiltrates. Slight improvement in small bowel distention. Electronically signed by: Braden Schulte MD (09/08/2019 11:19 AM) [facility]
--- NOTE | 2019-09-08 13:06 | PDOC ---
SURGICAL PROGRESS NOTE Subjective some flatus no emesis no nausea since last night Vital Signs Vital Signs Date Time Temp Pulse Resp B/P (MAP) Pulse Ox O2 Delivery O2 Flow Rate FiO2 09/08/19 11:10 98.4 82 18 144/55 (84) 97 Room Air 98.4 I&O Intake and Output 09/08/19 07:00 Intake Total 240 ml Balance 240 ml Intake Oral 240 ml # Voids 4 # Bowel Movements 3 General: Alert, Oriented X3, Cooperative Abdomen: Soft, Other (ND) Labs Laboratory Tests Test 09/06/19 14:15 09/06/19 15:00 09/07/19 07:30 White Blood Count 14.4 x10^3/uL (4.0-11.0) 11.9 x10^3/uL (4.0-11.0) Red Blood Count 4.80 x10^6/uL (3.50-5.40) 4.43 x10^6/uL (3.50-5.40) Hemoglobin 14.9 g/dL (12.0-15.5) 13.4 g/dL (12.0-15.5) Hematocrit 43.9 % (36.0-47.0) 40.6 % (36.0-47.0) Mean Corpuscular Volume 91 fL (79-100) 92 fL (79-100) Mean Corpuscular Hemoglobin 31 pg (25-35) 30 pg (25-35) Mean Corpuscular Hemoglobin Concent 34 g/dL (31-37) 33 g/dL (31-37) Red Cell Distribution Width 13.9 % (11.5-14.5) 13.4 % (11.5-14.5) Platelet Count 270 x10^3/uL (140-400) 285 x10^3/uL (140-400) Neutrophils (%) (Auto) 89 % (31-73) 75 % (31-73) Lymphocytes (%) (Auto) 8 % (24-48) 18 % (24-48) Monocytes (%) (Auto) 3 % (0-9) 7 % (0-9) Eosinophils (%) (Auto) 0 % (0-3) 0 % (0-3) Basophils (%) (Auto) 0 % (0-3) 0 % (0-3) Neutrophils # (Auto) 12.8 x10^3/uL (1.8-7.7) 8.9 x10^3/uL (1.8-7.7) Lymphocytes # (Auto) 1.1 x10^3/uL (1.0-4.8) 2.1 x10^3/uL (1.0-4.8) Monocytes # (Auto) 0.4 x10^3/uL (0.0-1.1) 0.8 x10^3/uL (0.0-1.1) Eosinophils # (Auto) 0.0 x10^3/uL (0.0-0.7) 0.0 x10^3/uL (0.0-0.7) Basophils # (Auto) 0.0 x10^3/uL (0.0-0.2) 0.0 x10^3/uL (0.0-0.2) Segmented Neutrophils % 83 % (35-66) Band Neutrophils % 7 % (0-9) Lymphocytes % 8 % (24-48) Monocytes % 2 % (0-10) Platelet Estimate Adequate (ADEQUATE) Large Platelets Few Sodium Level 142 mmol/L (136-145) 144 mmol/L (136-145) Potassium Level 3.8 mmol/L (3.5-5.1) 3.9 mmol/L (3.5-5.1) Chloride Level 104 mmol/L (98-107) 108 mmol/L (98-107) Carbon Dioxide Level 27 mmol/L (21-32) 25 mmol/L (21-32) Anion Gap 11 (6-14) 11 (6-14) Blood Urea Nitrogen 14 mg/dL (7-20) 9 mg/dL (7-20) Creatinine 1.0 mg/dL (0.6-1.0) 0.8 mg/dL (0.6-1.0) Estimated GFR (Cockcroft-Gault) 53.5 69.2 BUN/Creatinine Ratio 14 (6-20) Glucose Level 158 mg/dL (70-99) 100 mg/dL (70-99) Calcium Level 9.2 mg/dL (8.5-10.1) 9.1 mg/dL (8.5-10.1) Magnesium Level 2.2 mg/dL (1.8-2.4) Total Bilirubin 0.6 mg/dL (0.2-1.0) Aspartate Amino Transf (AST/SGOT) 18 U/L (15-37) Alanine Aminotransferase (ALT/SGPT) 18 U/L (14-59) Alkaline Phosphatase 71 U/L (46-116) Creatine Kinase 172 U/L (26-192) Creatine Kinase MB (Mass) 4.6 ng/mL (0.0-3.6) Creatine Kinase MB Relative Index 2.7 % (0-4) Troponin I Quantitative < 0.017 ng/mL (0.000-0.055) TK-Trs-B-Type Natriuretic Peptide 54 pg/mL (0-449) Total Protein 7.7 g/dL (6.4-8.2) Albumin 3.7 g/dL (3.4-5.0) Albumin/Globulin Ratio 0.9 (1.0-1.7) Lipase 184 U/L (73-393) Urine Collection Type Unknown Urine Color Rosangela Urine Clarity Clear Urine pH 5.0 Urine Specific [place] >=1.030 Urine Protein 30 mg/dL (NEG-TRACE) Urine Glucose (UA) Negative mg/dL (NEG) Urine Ketones (Stick) Negative mg/dL (NEG) Urine Blood Moderate (NEG) Urine Nitrite Negative (NEG) Urine Bilirubin Small (NEG) Urine Urobilinogen Dipstick 1.0 mg/dL (0.2 mg/dL) Urine Leukocyte Esterase Small (NEG) Urine RBC 6-10 /HPF (0-2) Urine WBC 1-4 /HPF (0-4) Urine Squamous Epithelial Cells Many /LPF Urine Bacteria Mod /HPF (0-FEW) Urine Hyaline Casts Many /HPF Urine Mucus Marked /LPF Urine Opiates Screen Neg (NEG) Urine Methadone Screen Neg (NEG) Urine Barbiturates Neg (NEG) Urine Phencyclidine Screen Neg (NEG) Urine Amphetamine/Methamphetamine Neg (NEG) Urine Benzodiazepines Screen Neg (NEG) Urine Cocaine Screen Neg (NEG) Urine Cannabinoids Screen Neg (NEG) Urine Ethyl Alcohol Neg (NEG) Problem List Problems Medical Problems: (1) SBO (small bowel obstruction) Status: Acute Assessment/Plan some improvement will continue bowel rest xrays in AM GALDINO INFANTE APRN Sep 08, 2019 13:06
--- NOTE | 2019-09-08 14:53 | NUR ---
SW following. Discussed with RN, pt is from home with , has 3 children. Pt does not want an NG tube, currently having ice chips. SW will continue to follow.
[2019-09-08 15:04] VITALS: BP 119/41
[2019-09-08 19:20] VITALS: BP 138/46
[2019-09-08] MEDS: LATANOPROST 0.005% OPHTH SOLUTION 2.5ML BOTTLE. OU SCH (20:18)
[2019-09-08 23:06] VITALS: BP 129/54
[2019-09-09 03:04] VITALS: BP 145/58
[2019-09-09 04:57] LABS: BASO # 0.1 x10^3/uL (0.0-0.2); BASO % 1 % (0-3); EOS # 0.1 x10^3/uL (0.0-0.7); EOS % 1 % (0-3); HEMATOCRIT 35.1 % (36.0-47.0); HEMOGLOBIN 11.8 g/dL (12.0-15.5); LYMPH # 2.4 x10^3/uL (1.0-4.8); LYMPH % 26 % (24-48); MEAN CORPUSCULAR HEMOGLOBIN 31 pg (25-35); MEAN CORPUSCULAR HGB CONC 34 g/dL (31-37); MEAN CORPUSCULAR VOLUME 92 fL (79-100); MONO # 0.6 x10^3/uL (0.0-1.1); MONO % 7 % (0-9); NEUT % 65 % (31-73); PLATELET COUNT 196 x10^3/uL (140-400); RED CELL DISTRIBUTION WIDTH 13.6 % (11.5-14.5); WHITE BLOOD COUNT 9.2 x10^3/uL (4.0-11.0)
[2019-09-09] MEDS: ONDANSETRON PF 4 MG/2 ML VIAL. IV PRN ×2 (05:03→17:30)
[2019-09-09 05:28] LABS: CALCIUM 8.5 mg/dL (8.5-10.1); CREATININE 0.8 mg/dL (0.6-1.0); GFR 69.2; POTASSIUM 3.5 mmol/L (3.5-5.1)
[2019-09-09 07:00] VITALS: BP 151/62
[2019-09-09] MEDS: FAMOTIDINE 20 MG/2 ML VIAL IVP SCH ×2 (07:42→20:28)
[2019-09-09] MEDS: IV NORMAL SALINE 1000ML BAG 1,000 ML IV SCH ×3 (07:43→20:44)
--- NOTE | 2019-09-09 07:56 | RAD ---
ACUTE ABDOMEN SERIES History: Small bowel obstruction Comparison: September 08, 2019 Findings: Single view of the chest, single upright AP view of the abdomen, and 2 supine AP views of the abdomen are submitted. There is no pneumothorax, pleural fluid, or new lobar consolidation. No free air is identified by radiographs. Degree of gastric distention has somewhat increased. There is persistent small bowel dilatation which is somewhat greater. Impression: 1. Overall degree of small bowel dilatation has somewhat increased as has gastric distention. Electronically signed by: Jason Tucker MD (09/09/2019 7:53 AM) [facility]
--- NOTE | 2019-09-09 10:36 | PDOC ---
SURGICAL PROGRESS NOTE Subjective Pt reports not sure how she is feeling, no obvious abd pain, no N/V Vital Signs Vital Signs Date Time Temp Pulse Resp B/P (MAP) Pulse Ox O2 Delivery O2 Flow Rate FiO2 09/09/19 08:00 Room Air 09/09/19 07:32 97 09/09/19 07:00 98.0 40 18 151/62 (91) 98.0 I&O Intake and Output 09/09/19 07:00 Intake Total 900 ml Balance 900 ml Intake Oral 900 ml # Voids 3 General: Alert, Cooperative, No acute distress Abdomen: Soft, No tenderness, Other (morbidly obese ) Labs Laboratory Tests Test 09/09/19 04:15 White Blood Count 9.2 x10^3/uL (4.0-11.0) Red Blood Count 3.80 x10^6/uL (3.50-5.40) Hemoglobin 11.8 g/dL (12.0-15.5) Hematocrit 35.1 % (36.0-47.0) Mean Corpuscular Volume 92 fL (79-100) Mean Corpuscular Hemoglobin 31 pg (25-35) Mean Corpuscular Hemoglobin Concent 34 g/dL (31-37) Red Cell Distribution Width 13.6 % (11.5-14.5) Platelet Count 196 x10^3/uL (140-400) Neutrophils (%) (Auto) 65 % (31-73) Lymphocytes (%) (Auto) 26 % (24-48) Monocytes (%) (Auto) 7 % (0-9) Eosinophils (%) (Auto) 1 % (0-3) Basophils (%) (Auto) 1 % (0-3) Neutrophils # (Auto) 6.0 x10^3/uL (1.8-7.7) Lymphocytes # (Auto) 2.4 x10^3/uL (1.0-4.8) Monocytes # (Auto) 0.6 x10^3/uL (0.0-1.1) Eosinophils # (Auto) 0.1 x10^3/uL (0.0-0.7) Basophils # (Auto) 0.1 x10^3/uL (0.0-0.2) Sodium Level 146 mmol/L (136-145) Potassium Level 3.5 mmol/L (3.5-5.1) Chloride Level 111 mmol/L (98-107) Carbon Dioxide Level 25 mmol/L (21-32) Anion Gap 10 (6-14) Blood Urea Nitrogen 6 mg/dL (7-20) Creatinine 0.8 mg/dL (0.6-1.0) Estimated GFR (Cockcroft-Gault) 69.2 Glucose Level 85 mg/dL (70-99) Calcium Level 8.5 mg/dL (8.5-10.1) Laboratory Tests Test 09/09/19 04:15 White Blood Count 9.2 x10^3/uL (4.0-11.0) Red Blood Count 3.80 x10^6/uL (3.50-5.40) Hemoglobin 11.8 g/dL (12.0-15.5) Hematocrit 35.1 % (36.0-47.0) Mean Corpuscular Volume 92 fL (79-100) Mean Corpuscular Hemoglobin 31 pg (25-35) Mean Corpuscular Hemoglobin Concent 34 g/dL (31-37) Red Cell Distribution Width 13.6 % (11.5-14.5) Platelet Count 196 x10^3/uL (140-400) Neutrophils (%) (Auto) 65 % (31-73) Lymphocytes (%) (Auto) 26 % (24-48) Monocytes (%) (Auto) 7 % (0-9) Eosinophils (%) (Auto) 1 % (0-3) Basophils (%) (Auto) 1 % (0-3) Neutrophils # (Auto) 6.0 x10^3/uL (1.8-7.7) Lymphocytes # (Auto) 2.4 x10^3/uL (1.0-4.8) Monocytes # (Auto) 0.6 x10^3/uL (0.0-1.1) Eosinophils # (Auto) 0.1 x10^3/uL (0.0-0.7) Basophils # (Auto) 0.1 x10^3/uL (0.0-0.2) Sodium Level 146 mmol/L (136-145) Potassium Level 3.5 mmol/L (3.5-5.1) Chloride Level 111 mmol/L (98-107) Carbon Dioxide Level 25 mmol/L (21-32) Anion Gap 10 (6-14) Blood Urea Nitrogen 6 mg/dL (7-20) Creatinine 0.8 mg/dL (0.6-1.0) Estimated GFR (Cockcroft-Gault) 69.2 Glucose Level 85 mg/dL (70-99) Calcium Level 8.5 mg/dL (8.5-10.1) I have reviewed the following KUB with some increased distention Problem List Problems Medical Problems: (1) SBO (small bowel obstruction) Status: Acute Assessment/Plan will continue clears. recheck KUB in AM, if not improved, will consider SBFT. BAUTISTA BABIN MD Sep 09, 2019 10:36
[2019-09-09 11:00] VITALS: BP 120/63
--- NOTE | 2019-09-09 11:14 | PDOC ---
G I PROGRESS NOTE Subjective Not much spontaneous discomfort. No N, V. "Couple of turds" yesterday. Physical Exam Lungs clear. RRR Abdomen obese, but seems distended some. Mild tenderness, diffuse. Not many if any bowel sounds. Review of Relevant I have reviewed the following items missael (where applicable) has been applied. Labs Laboratory Tests Test 09/09/19 04:15 White Blood Count 9.2 x10^3/uL (4.0-11.0) Red Blood Count 3.80 x10^6/uL (3.50-5.40) Hemoglobin 11.8 g/dL (12.0-15.5) Hematocrit 35.1 % (36.0-47.0) Mean Corpuscular Volume 92 fL (79-100) Mean Corpuscular Hemoglobin 31 pg (25-35) Mean Corpuscular Hemoglobin Concent 34 g/dL (31-37) Red Cell Distribution Width 13.6 % (11.5-14.5) Platelet Count 196 x10^3/uL (140-400) Neutrophils (%) (Auto) 65 % (31-73) Lymphocytes (%) (Auto) 26 % (24-48) Monocytes (%) (Auto) 7 % (0-9) Eosinophils (%) (Auto) 1 % (0-3) Basophils (%) (Auto) 1 % (0-3) Neutrophils # (Auto) 6.0 x10^3/uL (1.8-7.7) Lymphocytes # (Auto) 2.4 x10^3/uL (1.0-4.8) Monocytes # (Auto) 0.6 x10^3/uL (0.0-1.1) Eosinophils # (Auto) 0.1 x10^3/uL (0.0-0.7) Basophils # (Auto) 0.1 x10^3/uL (0.0-0.2) Sodium Level 146 mmol/L (136-145) Potassium Level 3.5 mmol/L (3.5-5.1) Chloride Level 111 mmol/L (98-107) Carbon Dioxide Level 25 mmol/L (21-32) Anion Gap 10 (6-14) Blood Urea Nitrogen 6 mg/dL (7-20) Creatinine 0.8 mg/dL (0.6-1.0) Estimated GFR (Cockcroft-Gault) 69.2 Glucose Level 85 mg/dL (70-99) Calcium Level 8.5 mg/dL (8.5-10.1) Laboratory Tests Test 09/09/19 04:15 White Blood Count 9.2 x10^3/uL (4.0-11.0) Red Blood Count 3.80 x10^6/uL (3.50-5.40) Hemoglobin 11.8 g/dL (12.0-15.5) Hematocrit 35.1 % (36.0-47.0) Mean Corpuscular Volume 92 fL (79-100) Mean Corpuscular Hemoglobin 31 pg (25-35) Mean Corpuscular Hemoglobin Concent 34 g/dL (31-37) Red Cell Distribution Width 13.6 % (11.5-14.5) Platelet Count 196 x10^3/uL (140-400) Neutrophils (%) (Auto) 65 % (31-73) Lymphocytes (%) (Auto) 26 % (24-48) Monocytes (%) (Auto) 7 % (0-9) Eosinophils (%) (Auto) 1 % (0-3) Basophils (%) (Auto) 1 % (0-3) Neutrophils # (Auto) 6.0 x10^3/uL (1.8-7.7) Lymphocytes # (Auto) 2.4 x10^3/uL (1.0-4.8) Monocytes # (Auto) 0.6 x10^3/uL (0.0-1.1) Eosinophils # (Auto) 0.1 x10^3/uL (0.0-0.7) Basophils # (Auto) 0.1 x10^3/uL (0.0-0.2) Sodium Level 146 mmol/L (136-145) Potassium Level 3.5 mmol/L (3.5-5.1) Chloride Level 111 mmol/L (98-107) Carbon Dioxide Level 25 mmol/L (21-32) Anion Gap 10 (6-14) Blood Urea Nitrogen 6 mg/dL (7-20) Creatinine 0.8 mg/dL (0.6-1.0) Estimated GFR (Cockcroft-Gault) 69.2 Glucose Level 85 mg/dL (70-99) Calcium Level 8.5 mg/dL (8.5-10.1) Vitals/I & O Vital Sign - Last 24 Hours 09/08/19 09/08/19 09/08/19 09/08/19 15:04 19:20 19:30 23:06 Temp 98.0 98.2 98.1 98.0 98.2 98.1 Pulse 88 73 71 Resp 18 18 20 B/P (MAP) 119/41 (67) 138/46 (76) 129/54 (79) Pulse Ox 97 95 99 O2 Delivery Room Air Room Air Room Air Room Air 09/09/19 09/09/19 09/09/19 09/09/19 03:04 07:00 07:32 08:00 Temp 98.2 98.0 98.2 98.0 Pulse 72 40 Resp 20 18 B/P (MAP) 145/58 (87) 151/62 (91) Pulse Ox 97 100 97 O2 Delivery Room Air Room Air Room Air Room Air 09/09/19 11:00 Temp 98.5 98.5 Pulse 80 Resp 18 B/P (MAP) 120/63 (82) Pulse Ox 97 O2 Delivery Room Air Intake and Output 09/08/19 09/08/19 09/09/19 15:00 23:00 07:00 Intake Total 420 ml 480 ml Balance 420 ml 480 ml Images AAS reviewed. Difficult read due to body habitus. Some not-really dilated small bowel loops on KUB. "Upright" unreadable. Problem List Problems Medical Problems: (1) SBO (small bowel obstruction) Status: Acute Assessment Does not seem clinically resolved. Plan of Care: Continue current Tx, Mgmt Plan of Care Note Agree with considering further imaging. LISA VALENTINE MD Sep 09, 2019 11:14
--- NOTE | 2019-09-09 11:34 | PDOC ---
PROGRESS NOTES History of Present Illness History of Present Illness VTE Prophylaxis Ordered VTE Prophylaxis Devices: Yes VTE Pharmacological Prophylaxi: Yes Assessment/Plan Assessment/Plan Partial small bowel obstruction, slow to resolve Multiple dilated loops of small bowel consistent with history of partial small bowel obstruction. Continued radiographic follow-up is recommended. 09/06 low-grade or partial small bowel obstruction given small bowel feces sign and relative decompression beyond the transition point in the right lower quadrant.ON CT 09/06 History of hysterectomy History of essential hypertension Morbid obesity with BMI of 45 Plan: passing gas bowel rest iv maintenance fluids surgical service following DVT prophylaxis: Heparin gi following, 09/09 ileus slow to resolve Vitals Vitals Vital Signs Date Time Temp Pulse Resp B/P (MAP) Pulse Ox O2 Delivery O2 Flow Rate FiO2 09/09/19 11:00 98.5 80 18 120/63 (82) 97 Room Air 98.5 Physical Exam General: Alert, Cooperative, No acute distress Heart: Regular rate, Normal S1, Normal S2 Lungs: Clear Abdomen: Soft, No tenderness, Other (morbidly obese ) Extremities: No clubbing, No cyanosis Skin: No rashes, No breakdown Labs LABS Laboratory Tests Test 09/09/19 04:15 White Blood Count 9.2 x10^3/uL (4.0-11.0) Red Blood Count 3.80 x10^6/uL (3.50-5.40) Hemoglobin 11.8 g/dL (12.0-15.5) Hematocrit 35.1 % (36.0-47.0) Mean Corpuscular Volume 92 fL (79-100) Mean Corpuscular Hemoglobin 31 pg (25-35) Mean Corpuscular Hemoglobin Concent 34 g/dL (31-37) Red Cell Distribution Width 13.6 % (11.5-14.5) Platelet Count 196 x10^3/uL (140-400) Neutrophils (%) (Auto) 65 % (31-73) Lymphocytes (%) (Auto) 26 % (24-48) Monocytes (%) (Auto) 7 % (0-9) Eosinophils (%) (Auto) 1 % (0-3) Basophils (%) (Auto) 1 % (0-3) Neutrophils # (Auto) 6.0 x10^3/uL (1.8-7.7) Lymphocytes # (Auto) 2.4 x10^3/uL (1.0-4.8) Monocytes # (Auto) 0.6 x10^3/uL (0.0-1.1) Eosinophils # (Auto) 0.1 x10^3/uL (0.0-0.7) Basophils # (Auto) 0.1 x10^3/uL (0.0-0.2) Sodium Level 146 mmol/L (136-145) Potassium Level 3.5 mmol/L (3.5-5.1) Chloride Level 111 mmol/L (98-107) Carbon Dioxide Level 25 mmol/L (21-32) Anion Gap 10 (6-14) Blood Urea Nitrogen 6 mg/dL (7-20) Creatinine 0.8 mg/dL (0.6-1.0) Estimated GFR (Cockcroft-Gault) 69.2 Glucose Level 85 mg/dL (70-99) Calcium Level 8.5 mg/dL (8.5-10.1) Assessment and Plan Assessmemt and Plan Problems Medical Problems: (1) SBO (small bowel obstruction) Status: Acute Comment Review of Relevant I have reviewed the following items missael (where applicable) has been applied. Labs Laboratory Tests Test 09/09/19 04:15 White Blood Count 9.2 x10^3/uL (4.0-11.0) Red Blood Count 3.80 x10^6/uL (3.50-5.40) Hemoglobin 11.8 g/dL (12.0-15.5) Hematocrit 35.1 % (36.0-47.0) Mean Corpuscular Volume 92 fL (79-100) Mean Corpuscular Hemoglobin 31 pg (25-35) Mean Corpuscular Hemoglobin Concent 34 g/dL (31-37) Red Cell Distribution Width 13.6 % (11.5-14.5) Platelet Count 196 x10^3/uL (140-400) Neutrophils (%) (Auto) 65 % (31-73) Lymphocytes (%) (Auto) 26 % (24-48) Monocytes (%) (Auto) 7 % (0-9) Eosinophils (%) (Auto) 1 % (0-3) Basophils (%) (Auto) 1 % (0-3) Neutrophils # (Auto) 6.0 x10^3/uL (1.8-7.7) Lymphocytes # (Auto) 2.4 x10^3/uL (1.0-4.8) Monocytes # (Auto) 0.6 x10^3/uL (0.0-1.1) Eosinophils # (Auto) 0.1 x10^3/uL (0.0-0.7) Basophils # (Auto) 0.1 x10^3/uL (0.0-0.2) Sodium Level 146 mmol/L (136-145) Potassium Level 3.5 mmol/L (3.5-5.1) Chloride Level 111 mmol/L (98-107) Carbon Dioxide Level 25 mmol/L (21-32) Anion Gap 10 (6-14) Blood Urea Nitrogen 6 mg/dL (7-20) Creatinine 0.8 mg/dL (0.6-1.0) Estimated GFR (Cockcroft-Gault) 69.2 Glucose Level 85 mg/dL (70-99) Calcium Level 8.5 mg/dL (8.5-10.1) Laboratory Tests Test 09/09/19 04:15 White Blood Count 9.2 x10^3/uL (4.0-11.0) Red Blood Count 3.80 x10^6/uL (3.50-5.40) Hemoglobin 11.8 g/dL (12.0-15.5) Hematocrit 35.1 % (36.0-47.0) Mean Corpuscular Volume 92 fL (79-100) Mean Corpuscular Hemoglobin 31 pg (25-35) Mean Corpuscular Hemoglobin Concent 34 g/dL (31-37) Red Cell Distribution Width 13.6 % (11.5-14.5) Platelet Count 196 x10^3/uL (140-400) Neutrophils (%) (Auto) 65 % (31-73) Lymphocytes (%) (Auto) 26 % (24-48) Monocytes (%) (Auto) 7 % (0-9) Eosinophils (%) (Auto) 1 % (0-3) Basophils (%) (Auto) 1 % (0-3) Neutrophils # (Auto) 6.0 x10^3/uL (1.8-7.7) Lymphocytes # (Auto) 2.4 x10^3/uL (1.0-4.8) Monocytes # (Auto) 0.6 x10^3/uL (0.0-1.1) Eosinophils # (Auto) 0.1 x10^3/uL (0.0-0.7) Basophils # (Auto) 0.1 x10^3/uL (0.0-0.2) Sodium Level 146 mmol/L (136-145) Potassium Level 3.5 mmol/L (3.5-5.1) Chloride Level 111 mmol/L (98-107) Carbon Dioxide Level 25 mmol/L (21-32) Anion Gap 10 (6-14) Blood Urea Nitrogen 6 mg/dL (7-20) Creatinine 0.8 mg/dL (0.6-1.0) Estimated GFR (Cockcroft-Gault) 69.2 Glucose Level 85 mg/dL (70-99) Calcium Level 8.5 mg/dL (8.5-10.1) Medications Current Medications Fentanyl Citrate (Fentanyl 2ml Vial) 25 mcg PRN Q15MIN PRN IV PAIN GREATER THAN 3/10 Last administered on 09/06/19at 16:36; Start 09/06/19 at 14:30; Stop 09/06/19 at 21:00; Status DC Famotidine (Pepcid Vial) 20 mg 1X ONCE IVP Last administered on 09/06/19at 15:00; Start 09/06/19 at 14:30; Stop 09/06/19 at 14:35; Status DC Ondansetron HCl (Zofran) 4 mg 1X ONCE IVP Last administered on 09/06/19at 14:59; Start 09/06/19 at 14:30; Stop 09/06/19 at 14:35; Status DC Sodium Chloride 1,000 ml @ 1,000 mls/hr 1X ONCE IV Last administered on 09/06/19at 14:33; Start 09/06/19 at 14:30; Stop 09/06/19 at 15:29; Status DC Dicyclomine HCl (Bentyl) 20 mg 1X ONCE PO Last administered on 09/06/19at 14:58; Start 09/06/19 at 14:30; Stop 09/06/19 at 14:35; Status DC Iohexol (Omnipaque 300 Mg/ml) 60 ml 1X ONCE IV Last administered on 09/06/19at 15:00; Start 09/06/19 at 15:00; Stop 09/06/19 at 15:01; Status DC Sodium Chloride 1,000 ml @ 100 mls/hr Q10H IV Last administered on 09/09/19at 07:43; Start 09/06/19 at 17:05 Ondansetron HCl (Zofran) 4 mg PRN Q4HRS PRN IV NAUSEA/VOMITING, 1st CHOICE Last administered on 09/09/19at 05:03; Start 09/06/19 at 17:15 Acetaminophen (Tylenol) 650 mg PRN Q4HRS PRN PO TEMP OVER 100.4F OR MILD PAIN Last administered on 09/09/19at 05:03; Start 09/06/19 at 17:15 Acetaminophen (Tylenol Supp) 650 mg PRN Q4HRS PRN [place] TEMP OVER 100.4F OR MILD PAIN; Start 09/06/19 at 17:15 Docusate Sodium (Colace) 100 mg PRN BID PRN PO CONSTIPATION Last administered on 09/07/19at 21:25; Start 09/06/19 at 17:15 Albuterol Sulfate (Ventolin Neb Soln) 2.5 mg PRN Q4HRS PRN NEB SHORTNESS OF BREATH; Start 09/06/19 at 17:15 Guaifenesin (Robitussin) 200 mg PRN Q4HRS PRN PO COUGH; Start 09/06/19 at 17:15 Lorazepam (Ativan Inj) 1 mg PRN Q4HRS PRN IV ANXIETY / AGITATION; Start 09/06/19 at 17:15 Ondansetron HCl (Zofran) 4 mg PRN Q8HRS PRN IV NAUSEA/VOMITING; Start 09/06/19 at 18:15; Stop 09/07/19 at 18:14; Status UNV Morphine Sulfate (Morphine Sulfate) 2 mg PRN Q2HR PRN IV PAIN; Start 09/06/19 at 18:15; Stop 09/06/19 at 18:45; Status DC Sodium Chloride 1,000 ml @ 100 mls/hr 1X ONCE IV ; Start 09/06/19 at 18:15; Stop 09/07/19 at 04:14; Status UNV Prochlorperazine Edisylate (Compazine) 10 mg PRN Q8HRS PRN IV NAUSEA, 2nd CHOICE; Start 09/06/19 at 18:15 Morphine Sulfate (Morphine Sulfate) 2 mg PRN Q2HR PRN IV PAIN Last administered on 09/07/19at 22:54; Start 09/06/19 at 18:45 Famotidine (Pepcid Vial) 20 mg BID IVP Last administered on 09/09/19at 07:42; Start 09/06/19 at 21:00 Latanoprost (Xalatan) 1 drop QHS OU Last administered on 09/08/19at 20:18; Start 09/07/19 at 21:00 Active Scripts Active Reported Acetaminophen 500 Mg Tablet 1 Tab PO PRN Q6HRS PRN 15 Days Aspirin 81 Mg Tab.chew 1 Tab PO DAILY Triamterene 50 Mg Capsule 25 Mg PO QHS Verapamil Er (Verapamil Hcl) 240 Mg Cap24h.pel 1 Cap PO HS Travatan Z (Travoprost) 5 Ml Drops 5 Ml OU QHS Celebrex (Celecoxib) 200 Mg Capsule 1 Cap PO DAILY Vitals/I & O Vital Sign - Last 24 Hours 09/08/19 09/08/19 09/08/19 09/08/19 15:04 19:20 19:30 23:06 Temp 98.0 98.2 98.1 98.0 98.2 98.1 Pulse 88 73 71 Resp 18 18 20 B/P (MAP) 119/41 (67) 138/46 (76) 129/54 (79) Pulse Ox 97 95 99 O2 Delivery Room Air Room Air Room Air Room Air 09/09/19 09/09/19 09/09/19 09/09/19 03:04 07:00 07:32 08:00 Temp 98.2 98.0 98.2 98.0 Pulse 72 40 Resp 20 18 B/P (MAP) 145/58 (87) 151/62 (91) Pulse Ox 97 100 97 O2 Delivery Room Air Room Air Room Air Room Air 09/09/19 11:00 Temp 98.5 98.5 Pulse 80 Resp 18 B/P (MAP) 120/63 (82) Pulse Ox 97 O2 Delivery Room Air Intake and Output 09/08/19 09/08/19 09/09/19 15:00 23:00 07:00 Intake Total 420 ml 480 ml Balance 420 ml 480 ml Hemodynamically unstable?: No Is patient in severe pain?: Yes Is NPO status required?: Yes FRANSISCO ARRIETA MD Sep 09, 2019 11:34
[2019-09-09 15:00] VITALS: BP 146/54
[2019-09-09 19:00] VITALS: BP 146/68
--- NOTE | 2019-09-09 19:00 | RAD ---
Exam: KUB INDICATION: Tube placement TECHNIQUE: Frontal view of the abdomen Comparisons: 09/09/2019 FINDINGS: Interval placement of an enteric tube with tip in the left upper quadrant likely within the stomach. A few dilated loops of small bowel visualized in the upper abdomen. IMPRESSION: Enteric tube with tip likely in the stomach. Electronically signed by: Lenny Conner MD (09/09/2019 6:57 PM) [id number]
--- NOTE | 2019-09-09 19:48 | NUR ---
Patient c/o further discomfort and distention. She had refused NG tube twice, but I did finally convince her to let me put one in at 1700 09/09. 750cc output immediately. Pt tolerated the placement well. I instructed her to take sips only.
--- NOTE | 2019-09-09 19:54 | NUR ---
14 FR NG tube placed at 1700 09/09/19 to LIS. 1700cc out immediately. Marking at tip of nose on the tube is 65 Addendum: 09/10/19 at 0750 by Edie Saavedra RN Correction: 750cc immediate output.
[2019-09-09] MEDS: LATANOPROST 0.005% OPHTH SOLUTION 2.5ML BOTTLE. OU SCH (20:28)
[2019-09-09 23:00] VITALS: BP 141/68
[2019-09-10 03:00] VITALS: BP 142/66
[2019-09-10] MEDS: IV NORMAL SALINE 1000ML BAG 1,000 ML IV SCH (06:58)
[2019-09-10 07:00] VITALS: BP 154/65
--- NOTE | 2019-09-10 07:46 | NUR ---
1450cc output from NG tube total in last 12 hours. Color has changed from the original dark red to clear yellow.
[2019-09-10] MEDS: FAMOTIDINE 20 MG/2 ML VIAL IVP SCH ×2 (08:52→20:36)
[2019-09-10] MEDS: ONDANSETRON PF 4 MG/2 ML VIAL. IV PRN (08:52)
--- NOTE | 2019-09-10 10:14 | PDOC ---
PROGRESS NOTES History of Present Illness History of Present Illness VTE Prophylaxis Ordered VTE Prophylaxis Devices: Yes VTE Pharmacological Prophylaxi: Yes Assessment/Plan Assessment/Plan Partial small bowel obstruction, slow to resolve NG placed last night with high output. Multiple dilated loops of small bowel consistent with history of partial small bowel obstruction. Continued radiographic follow-up is recommended. 09/06 low-grade or partial small bowel obstruction given small bowel feces sign and relative decompression beyond the transition point in the right lower quadrant.ON CT 09/06 History of hysterectomy History of essential hypertension Morbid obesity with BMI of 45 Plan: passing gas bowel rest iv maintenance fluids surgical service following DVT prophylaxis: Heparin gi following, 09/10 ileus slow to resolve NG placed last night with high output. Vitals Vitals Vital Signs Date Time Temp Pulse Resp B/P (MAP) Pulse Ox O2 Delivery O2 Flow Rate FiO2 09/10/19 07:00 98.1 85 16 154/65 (94) 96 Room Air 98.1 Physical Exam General: Alert, Oriented X3, Cooperative, No acute distress Heart: Regular rate, Normal S1, Normal S2 Lungs: Clear Abdomen: Soft, No tenderness, Other (morbidly obese ) Extremities: No clubbing, No cyanosis Skin: No rashes, No breakdown Assessment and Plan Assessmemt and Plan Problems Medical Problems: (1) SBO (small bowel obstruction) Status: Acute Comment Review of Relevant I have reviewed the following items missael (where applicable) has been applied. Labs Laboratory Tests Test 09/09/19 04:15 White Blood Count 9.2 x10^3/uL (4.0-11.0) Red Blood Count 3.80 x10^6/uL (3.50-5.40) Hemoglobin 11.8 g/dL (12.0-15.5) Hematocrit 35.1 % (36.0-47.0) Mean Corpuscular Volume 92 fL (79-100) Mean Corpuscular Hemoglobin 31 pg (25-35) Mean Corpuscular Hemoglobin Concent 34 g/dL (31-37) Red Cell Distribution Width 13.6 % (11.5-14.5) Platelet Count 196 x10^3/uL (140-400) Neutrophils (%) (Auto) 65 % (31-73) Lymphocytes (%) (Auto) 26 % (24-48) Monocytes (%) (Auto) 7 % (0-9) Eosinophils (%) (Auto) 1 % (0-3) Basophils (%) (Auto) 1 % (0-3) Neutrophils # (Auto) 6.0 x10^3/uL (1.8-7.7) Lymphocytes # (Auto) 2.4 x10^3/uL (1.0-4.8) Monocytes # (Auto) 0.6 x10^3/uL (0.0-1.1) Eosinophils # (Auto) 0.1 x10^3/uL (0.0-0.7) Basophils # (Auto) 0.1 x10^3/uL (0.0-0.2) Sodium Level 146 mmol/L (136-145) Potassium Level 3.5 mmol/L (3.5-5.1) Chloride Level 111 mmol/L (98-107) Carbon Dioxide Level 25 mmol/L (21-32) Anion Gap 10 (6-14) Blood Urea Nitrogen 6 mg/dL (7-20) Creatinine 0.8 mg/dL (0.6-1.0) Estimated GFR (Cockcroft-Gault) 69.2 Glucose Level 85 mg/dL (70-99) Calcium Level 8.5 mg/dL (8.5-10.1) Medications Current Medications Fentanyl Citrate (Fentanyl 2ml Vial) 25 mcg PRN Q15MIN PRN IV PAIN GREATER THAN 3/10 Last administered on 09/06/19at 16:36; Start 09/06/19 at 14:30; Stop 09/06/19 at 21:00; Status DC Famotidine (Pepcid Vial) 20 mg 1X ONCE IVP Last administered on 09/06/19at 15:00; Start 09/06/19 at 14:30; Stop 09/06/19 at 14:35; Status DC Ondansetron HCl (Zofran) 4 mg 1X ONCE IVP Last administered on 09/06/19at 14:59 ; Start 09/06/19 at 14:30; Stop 09/06/19 at 14:35; Status DC Sodium Chloride 1,000 ml @ 1,000 mls/hr 1X ONCE IV Last administered on 09/06/19at 14:33; Start 09/06/19 at 14:30; Stop 09/06/19 at 15:29; Status DC Dicyclomine HCl (Bentyl) 20 mg 1X ONCE PO Last administered on 09/06/19at 14:58; Start 09/06/19 at 14:30; Stop 09/06/19 at 14:35; Status DC Iohexol (Omnipaque 300 Mg/ml) 60 ml 1X ONCE IV Last administered on 09/06/19at 15:00; Start 09/06/19 at 15:00; Stop 09/06/19 at 15:01; Status DC Sodium Chloride 1,000 ml @ 100 mls/hr Q10H IV Last administered on 09/10/19at 06:58; Start 09/06/19 at 17:05 Ondansetron HCl (Zofran) 4 mg PRN Q4HRS PRN IV NAUSEA/VOMITING, 1st CHOICE Last administered on 09/10/19at 08:52; Start 09/06/19 at 17:15 Acetaminophen (Tylenol) 650 mg PRN Q4HRS PRN PO TEMP OVER 100.4F OR MILD PAIN Last administered on 09/09/19at 05:03; Start 09/06/19 at 17:15 Acetaminophen (Tylenol Supp) 650 mg PRN Q4HRS PRN [place] TEMP OVER 100.4F OR MILD PAIN; Start 09/06/19 at 17:15 Docusate Sodium (Colace) 100 mg PRN BID PRN PO CONSTIPATION Last administered on 09/07/19at 21:25; Start 09/06/19 at 17:15 Albuterol Sulfate (Ventolin Neb Soln) 2.5 mg PRN Q4HRS PRN NEB SHORTNESS OF BREATH; Start 09/06/19 at 17:15 Guaifenesin (Robitussin) 200 mg PRN Q4HRS PRN PO COUGH; Start 09/06/19 at 17:15 Lorazepam (Ativan Inj) 1 mg PRN Q4HRS PRN IV ANXIETY / AGITATION Last administered on 09/09/19at 17:31; Start 09/06/19 at 17:15 Ondansetron HCl (Zofran) 4 mg PRN Q8HRS PRN IV NAUSEA/VOMITING; Start 09/06/19 at 18:15; Stop 09/07/19 at 18:14; Status UNV Morphine Sulfate (Morphine Sulfate) 2 mg PRN Q2HR PRN IV PAIN; Start 09/06/19 at 18:15; Stop 09/06/19 at 18:45; Status DC Sodium Chloride 1,000 ml @ 100 mls/hr 1X ONCE IV ; Start 09/06/19 at 18:15; Stop 09/07/19 at 04:14; Status UNV Prochlorperazine Edisylate (Compazine) 10 mg PRN Q8HRS PRN IV NAUSEA, 2nd CHOICE; Start 09/06/19 at 18:15 Morphine Sulfate (Morphine Sulfate) 2 mg PRN Q2HR PRN IV PAIN Last administered on 09/07/19at 22:54; Start 09/06/19 at 18:45 Famotidine (Pepcid Vial) 20 mg BID IVP Last administered on 09/10/19at 08:52; Start 09/06/19 at 21:00 Latanoprost (Xalatan) 1 drop QHS OU Last administered on 09/09/19at 20:28; Start 09/07/19 at 21:00 Active Scripts Active Reported Acetaminophen 500 Mg Tablet 1 Tab PO PRN Q6HRS PRN 15 Days Aspirin 81 Mg Tab.chew 1 Tab PO DAILY Triamterene 50 Mg Capsule 25 Mg PO QHS Verapamil Er (Verapamil Hcl) 240 Mg Cap24h.pel 1 Cap PO HS Travatan Z (Travoprost) 5 Ml Drops 5 Ml OU QHS Celebrex (Celecoxib) 200 Mg Capsule 1 Cap PO DAILY Vitals/I & O Vital Sign - Last 24 Hours 09/09/19 09/09/19 09/09/19 09/09/19 11:00 15:00 19:00 19:40 Temp 98.5 99.2 98.4 98.5 99.2 98.4 Pulse 80 80 83 Resp 18 18 18 B/P (MAP) 120/63 (82) 146/54 (84) 146/68 (94) Pulse Ox 97 99 91 O2 Delivery Room Air Room Air Room Air Room Air 09/09/19 09/10/19 09/10/19 23:00 03:00 07:00 Temp 98.3 98.0 98.1 98.3 98.0 98.1 Pulse 77 83 85 Resp 18 18 16 B/P (MAP) 141/68 (92) 142/66 (91) 154/65 (94) Pulse Ox 96 96 96 O2 Delivery Room Air Room Air Room Air Intake and Output 09/09/19 09/09/19 09/10/19 15:00 23:00 07:00 Intake Total 120 ml Output Total 750 ml 300 ml Balance -630 ml -300 ml Hemodynamically unstable?: No Is patient in severe pain?: Yes Is NPO status required?: Yes FRANSISCO ARRIETA MD Sep 10, 2019 10:14
[2019-09-10 11:00] VITALS: BP 171/76
--- NOTE | 2019-09-10 11:01 | RAD ---
ABDOMEN SUPINE UPRIGHT History: Small bowel obstruction Comparison: September 09, 2019 Findings: Single upright and single supine AP views of the abdomen are submitted. There is again enteric catheter coiled in the region of the stomach. Accurate evaluation for free air is limited due to entrapped air from soft tissue pannus or breast soft tissues. There is overall decreased degree of small bowel dilatation although some segments of small bowel such in the left abdomen again somewhat dilated. Impression: 1. Overall degree of small bowel dilatation has decreased. Accurate evaluation for free air is limited on this exam as stated. Electronically signed by: Jason Tucker MD (09/10/2019 10:58 AM) [facility]
[2019-09-10] MEDS ORDERED: CONTRAST GIVEN. MC PRN (11:15)
[2019-09-10] MEDS ORDERED: IOHEXOL 300 MG/ML 100ML VIAL. IJ ONE (11:15)
--- NOTE | 2019-09-10 13:31 | PDOC ---
G I PROGRESS NOTE Subjective Denies stool or flatus. NG placed last night with high output. Physical Exam Lungs clear. RRR Abdomen distended, not taut. No bowel sounds heard. Review of Relevant I have reviewed the following items missael (where applicable) has been applied. Labs Laboratory Tests Test 09/09/19 04:15 White Blood Count 9.2 x10^3/uL (4.0-11.0) Red Blood Count 3.80 x10^6/uL (3.50-5.40) Hemoglobin 11.8 g/dL (12.0-15.5) Hematocrit 35.1 % (36.0-47.0) Mean Corpuscular Volume 92 fL (79-100) Mean Corpuscular Hemoglobin 31 pg (25-35) Mean Corpuscular Hemoglobin Concent 34 g/dL (31-37) Red Cell Distribution Width 13.6 % (11.5-14.5) Platelet Count 196 x10^3/uL (140-400) Neutrophils (%) (Auto) 65 % (31-73) Lymphocytes (%) (Auto) 26 % (24-48) Monocytes (%) (Auto) 7 % (0-9) Eosinophils (%) (Auto) 1 % (0-3) Basophils (%) (Auto) 1 % (0-3) Neutrophils # (Auto) 6.0 x10^3/uL (1.8-7.7) Lymphocytes # (Auto) 2.4 x10^3/uL (1.0-4.8) Monocytes # (Auto) 0.6 x10^3/uL (0.0-1.1) Eosinophils # (Auto) 0.1 x10^3/uL (0.0-0.7) Basophils # (Auto) 0.1 x10^3/uL (0.0-0.2) Sodium Level 146 mmol/L (136-145) Potassium Level 3.5 mmol/L (3.5-5.1) Chloride Level 111 mmol/L (98-107) Carbon Dioxide Level 25 mmol/L (21-32) Anion Gap 10 (6-14) Blood Urea Nitrogen 6 mg/dL (7-20) Creatinine 0.8 mg/dL (0.6-1.0) Estimated GFR (Cockcroft-Gault) 69.2 Glucose Level 85 mg/dL (70-99) Calcium Level 8.5 mg/dL (8.5-10.1) Vitals/I & O Vital Sign - Last 24 Hours 09/09/19 09/09/19 09/09/19 09/09/19 15:00 19:00 19:40 23:00 Temp 99.2 98.4 98.3 99.2 98.4 98.3 Pulse 80 83 77 Resp 18 18 18 B/P (MAP) 146/54 (84) 146/68 (94) 141/68 (92) Pulse Ox 99 91 96 O2 Delivery Room Air Room Air Room Air Room Air 09/10/19 09/10/19 09/10/19 09/10/19 03:00 07:00 08:00 11:00 Temp 98.0 98.1 97.7 98.0 98.1 97.7 Pulse 83 85 87 Resp 18 16 18 B/P (MAP) 142/66 (91) 154/65 (94) 171/76 (107) Pulse Ox 96 96 96 O2 Delivery Room Air Room Air Room Air Room Air Intake and Output 09/09/19 09/09/19 09/10/19 15:00 23:00 07:00 Intake Total 120 ml Output Total 750 ml 300 ml Balance -630 ml -300 ml Images Prominent small bowel loops on KUB. Problem List Problems Medical Problems: (1) SBO (small bowel obstruction) Status: Acute Assessment SBO, likelly adhesions, not resolved. Plan of Care: Continue current Tx, Mgmt Plan of Care Note May need surgical intervention. LISA VALENTINE MD Sep 10, 2019 13:31
[2019-09-10 15:00] VITALS: BP 159/99
[2019-09-10] MEDS ORDERED: IV 1/2 NORMAL SALINE 1,000 ML IV ONE (15:45)
--- NOTE | 2019-09-10 16:18 | NUR ---
NG suction turned off at 1230 for small bowel series. After talking with the radiologist and Dr Sanchez at 1600, the suction was resumed since gastric fluid was backing up into the drainage tube and pt said she felt like it was backing up into her throat. Almost 900cc was immediately suctioned within 10 minutes.
--- NOTE | 2019-09-10 16:48 | RAD ---
SMALL BOWEL SERIES History: Small bowel obstruction Comparison: Radiographs the same day Findings: Small bowel exam was performed, Gastrografin was administered by technologist through enteric catheter. At 3.5 hours after contrast administration, large majority of the contrast is in the stomach as well as in segments of dilated small bowel. There is mild reflux of contrast in the distal esophagus as seen on the two-hour exam. Impression: 1. Large majority of the contrast is in the stomach at 3.5 hours as well as in segments of the dilated small bowel, evidence of at least partial small bowel obstruction. Continued longer term radiographic follow-up may be beneficial. Electronically signed by: Jason Tucker MD (09/10/2019 4:45 PM) [facility]
--- NOTE | 2019-09-10 16:54 | PDOC ---
SURGICAL PROGRESS NOTE Subjective Pt had NGT placed and fair amount of bilious output, but now serous Vital Signs Vital Signs Date Time Temp Pulse Resp B/P (MAP) Pulse Ox O2 Delivery O2 Flow Rate FiO2 09/10/19 15:00 98.6 82 18 159/99 (119) 95 Room Air 98.6 I&O Intake and Output 09/10/19 07:00 Intake Total 120 ml Output Total 1050 ml Balance -930 ml Intake Oral 120 ml Output Gastric Drainage Total 1050 ml # Voids 3 General: Alert, Cooperative, No acute distress Abdomen: Soft, Other (obese, NTTP) Labs Laboratory Tests Test 09/09/19 04:15 White Blood Count 9.2 x10^3/uL (4.0-11.0) Red Blood Count 3.80 x10^6/uL (3.50-5.40) Hemoglobin 11.8 g/dL (12.0-15.5) Hematocrit 35.1 % (36.0-47.0) Mean Corpuscular Volume 92 fL (79-100) Mean Corpuscular Hemoglobin 31 pg (25-35) Mean Corpuscular Hemoglobin Concent 34 g/dL (31-37) Red Cell Distribution Width 13.6 % (11.5-14.5) Platelet Count 196 x10^3/uL (140-400) Neutrophils (%) (Auto) 65 % (31-73) Lymphocytes (%) (Auto) 26 % (24-48) Monocytes (%) (Auto) 7 % (0-9) Eosinophils (%) (Auto) 1 % (0-3) Basophils (%) (Auto) 1 % (0-3) Neutrophils # (Auto) 6.0 x10^3/uL (1.8-7.7) Lymphocytes # (Auto) 2.4 x10^3/uL (1.0-4.8) Monocytes # (Auto) 0.6 x10^3/uL (0.0-1.1) Eosinophils # (Auto) 0.1 x10^3/uL (0.0-0.7) Basophils # (Auto) 0.1 x10^3/uL (0.0-0.2) Sodium Level 146 mmol/L (136-145) Potassium Level 3.5 mmol/L (3.5-5.1) Chloride Level 111 mmol/L (98-107) Carbon Dioxide Level 25 mmol/L (21-32) Anion Gap 10 (6-14) Blood Urea Nitrogen 6 mg/dL (7-20) Creatinine 0.8 mg/dL (0.6-1.0) Estimated GFR (Cockcroft-Gault) 69.2 Glucose Level 85 mg/dL (70-99) Calcium Level 8.5 mg/dL (8.5-10.1) I have reviewed the following KUB-some improvement SBF-contrast in stomach and distal bowel, will f/u in AM Problem List Problems Medical Problems: (1) SBO (small bowel obstruction) Status: Acute Assessment/Plan SBO will cont supportive care. If not improved soon, may need operative intervention, but poor candidate secondary to comorbidities and obesity. BAUTISTA BABIN MD Sep 10, 2019 16:54
[2019-09-10 19:00] VITALS: BP 145/65
[2019-09-10] MEDS: LATANOPROST 0.005% OPHTH SOLUTION 2.5ML BOTTLE. OU SCH (20:36)
[2019-09-10 23:00] VITALS: BP 124/70
[2019-09-11 02:33] VITALS: BP 159/66
[2019-09-11 06:32] LABS: ALBUMIN 3.1 g/dL (3.4-5.0); CALCIUM 8.4 mg/dL (8.5-10.1); CREATININE 0.7 mg/dL (0.6-1.0); GFR 80.7; PHOSPHORUS 2.4 mg/dL (2.6-4.7)
[2019-09-11 07:00] VITALS: BP 142/67
--- NOTE | 2019-09-11 07:54 | RAD ---
EXAM: ABDOMEN ONE VIEW. HISTORY: Small bowel obstruction. COMPARISON: 09/10/2019. FINDINGS: A frontal view of the abdomen is obtained. A nasogastric tube has its tip in the distal stomach. Contrast remains scattered throughout mildly distended small bowel loops. Only a small amount of contrast has reached the right colon. A transition point is not identified by this technique. IMPRESSION: 1. Persistent small bowel obstruction. Electronically signed by: Indigo Posada MD (09/11/2019 7:51 AM) [facility]
[2019-09-11] MEDS: FAMOTIDINE 20 MG/2 ML VIAL IVP SCH ×2 (08:03→20:19)
[2019-09-11] MEDS ORDERED: ENOXAPARIN 40 MG/0.4 ML SYRINGE. SQ SCH (09:00)
[2019-09-11] MEDS ORDERED: POTASSIUM CL 40MEQ D5-0.45NACL 1,000 ML IV PRN (09:00)
--- NOTE | 2019-09-11 09:41 | PDOC ---
Subjective: Subjective: Family feels she's not improving w/ treatment plan so far, wants something else done today, particularly because she didn't want the NG tube in the first place. Daughter says she felt terrible when suction turned off yesterday. Per pt - feels a little less bloated, no flatus or stool, NG uncomfortable, says she hasn't needed pain meds for a couple days. Objective: Objective: Significant NG output over the weekend. Vital Signs: Vital Signs Date Time Temp Pulse Resp B/P (MAP) Pulse Ox O2 Delivery O2 Flow Rate FiO2 09/11/19 07:30 Room Air 09/11/19 07:00 97.8 79 16 142/67 (92) 97 97.8 Labs: Laboratory Tests Test 09/11/19 05:50 Sodium Level 148 mmol/L Potassium Level 3.0 mmol/L Chloride Level 109 mmol/L Carbon Dioxide Level 26 mmol/L Anion Gap 13 Blood Urea Nitrogen 5 mg/dL Creatinine 0.7 mg/dL Estimated GFR (Cockcroft-Gault) 80.7 Glucose Level 74 mg/dL Calcium Level 8.4 mg/dL Phosphorus Level 2.4 mg/dL Albumin 3.1 g/dL Imaging: KUB 09/10 Impression: 1. Overall degree of small bowel dilatation has decreased. Accurate evaluation for free air is limited on this exam as stated. SBS 09/10 Impression: 1. Large majority of the contrast is in the stomach at 3.5 hours as well as in segments of the dilated small bowel, evidence of at least partial small bowel obstruction. Continued longer term radiographic follow-up may be beneficial. KUB 09/11 IMPRESSION: 1. Persistent small bowel obstruction. PE: GEN: NAD HEENT: NG bilious LUNGS: CTAB anteriorly HEART: RRR ABD: non-tender, quiet NEURO/PSYCH: A & O 3 A/P: SBO -- Time spent with family, imaging results reviewed, discussed options moving forward. D/w nurse who will communicate family's concerns to surgery. Hemodynamically unstable?: No Is patient in severe pain?: No Is NPO status required?: Yes LUCRECIA CORDON Sep 11, 2019 09:41
[2019-09-11] MEDS: POTASSIUM CL 40MEQ D5-0.45NACL 1,000 ML IV SCH ×2 (10:15→23:28)
[2019-09-11 11:00] VITALS: BP 171/64
--- NOTE | 2019-09-11 11:03 | NUR ---
SW following. Discussed with RN, pt is from home, has NG tube. Pt had small bowel series yesterday, still has small bowel obstruction. Pt declined PT and OT. SW will continue to follow.
--- NOTE | 2019-09-11 11:20 | PDOC ---
SURGICAL PROGRESS NOTE Subjective family in room pt denies pain, no flatus has not been out of her room Vital Signs Vital Signs Date Time Temp Pulse Resp B/P (MAP) Pulse Ox O2 Delivery O2 Flow Rate FiO2 09/11/19 11:00 97.8 79 16 171/64 (99) 94 Room Air 97.8 I&O Intake and Output 09/11/19 07:00 Intake Total 0 ml Output Total 2550 ml Balance -2550 ml Intake Oral 0 ml Output Gastric Drainage Total 2550 ml # Voids 2 PATIENT HAS A GARCIA: No General: Alert, Oriented X3, No acute distress HEENT: Atraumatic, Other (NG in place with small amount of sero-bilious output) Lungs: Normal air movement Abdomen: Soft, No tenderness, Other (obese) Labs Laboratory Tests Test 09/11/19 05:50 Sodium Level 148 mmol/L (136-145) Potassium Level 3.0 mmol/L (3.5-5.1) Chloride Level 109 mmol/L (98-107) Carbon Dioxide Level 26 mmol/L (21-32) Anion Gap 13 (6-14) Blood Urea Nitrogen 5 mg/dL (7-20) Creatinine 0.7 mg/dL (0.6-1.0) Estimated GFR (Cockcroft-Gault) 80.7 Glucose Level 74 mg/dL (70-99) Calcium Level 8.4 mg/dL (8.5-10.1) Phosphorus Level 2.4 mg/dL (2.6-4.7) Albumin 3.1 g/dL (3.4-5.0) Laboratory Tests Test 09/11/19 05:50 Sodium Level 148 mmol/L (136-145) Potassium Level 3.0 mmol/L (3.5-5.1) Chloride Level 109 mmol/L (98-107) Carbon Dioxide Level 26 mmol/L (21-32) Anion Gap 13 (6-14) Blood Urea Nitrogen 5 mg/dL (7-20) Creatinine 0.7 mg/dL (0.6-1.0) Estimated GFR (Cockcroft-Gault) 80.7 Glucose Level 74 mg/dL (70-99) Calcium Level 8.4 mg/dL (8.5-10.1) Phosphorus Level 2.4 mg/dL (2.6-4.7) Albumin 3.1 g/dL (3.4-5.0) I have reviewed the following SBFT from yesterday and KUB from today are reviewed Problem List Problems Medical Problems: (1) SBO (small bowel obstruction) Status: Acute Assessment/Plan ileus vs partial SBO will order sesame seed oil, ambulate, repeat KUB tomorrow d/w pt and her family questions answered GREY WIGGINS MD Sep 11, 2019 11:20
--- NOTE | 2019-09-11 11:55 | PDOC ---
PROGRESS NOTES Chief Complaint Chief Complaint PArtial SBO Obesity Hypokalemia sec to NPO x 7 days Poor surgical candidate History of Present Illness History of Present Illness SPent 30 mins in room with family as they "dont know whats going on" SHe is day 7 conservative measures, partial SBO Abd xray today,still shows persistent SBO, NGT in place NGT still draining yellowish fluid (initially was a lot of bile) K 3.0 PLAn: NPO, NGT Start lovenox SQ Poor surgical candidate and she knows Start K containing iVF I might start procalamine tmr dw RN Marley FAMILY Was very appreciative after my discussion of what has happened in [facility] last 7 days Vitals Vitals Vital Signs Date Time Temp Pulse Resp B/P (MAP) Pulse Ox O2 Delivery O2 Flow Rate FiO2 09/11/19 11:00 97.8 79 16 171/64 (99) 94 Room Air 97.8 Physical Exam General: Alert, Oriented X3, No acute distress Heart: Regular rate, Normal S1, Normal S2 Lungs: Clear Abdomen: Soft, No tenderness, Other (obese) Extremities: No clubbing, No cyanosis Skin: No rashes, No breakdown Labs LABS Laboratory Tests Test 09/11/19 05:50 Sodium Level 148 mmol/L (136-145) Potassium Level 3.0 mmol/L (3.5-5.1) Chloride Level 109 mmol/L (98-107) Carbon Dioxide Level 26 mmol/L (21-32) Anion Gap 13 (6-14) Blood Urea Nitrogen 5 mg/dL (7-20) Creatinine 0.7 mg/dL (0.6-1.0) Estimated GFR (Cockcroft-Gault) 80.7 Glucose Level 74 mg/dL (70-99) Calcium Level 8.4 mg/dL (8.5-10.1) Phosphorus Level 2.4 mg/dL (2.6-4.7) Albumin 3.1 g/dL (3.4-5.0) Review of Systems Review of Systems no abd pain, HUNGER pains, all else 14 pt neg Assessment and Plan Assessmemt and Plan Problems Medical Problems: (1) SBO (small bowel obstruction) Status: Acute Comment Review of Relevant I have reviewed the following items missael (where applicable) has been applied. Labs Laboratory Tests Test 09/11/19 05:50 Sodium Level 148 mmol/L (136-145) Potassium Level 3.0 mmol/L (3.5-5.1) Chloride Level 109 mmol/L (98-107) Carbon Dioxide Level 26 mmol/L (21-32) Anion Gap 13 (6-14) Blood Urea Nitrogen 5 mg/dL (7-20) Creatinine 0.7 mg/dL (0.6-1.0) Estimated GFR (Cockcroft-Gault) 80.7 Glucose Level 74 mg/dL (70-99) Calcium Level 8.4 mg/dL (8.5-10.1) Phosphorus Level 2.4 mg/dL (2.6-4.7) Albumin 3.1 g/dL (3.4-5.0) Laboratory Tests Test 09/11/19 05:50 Sodium Level 148 mmol/L (136-145) Potassium Level 3.0 mmol/L (3.5-5.1) Chloride Level 109 mmol/L (98-107) Carbon Dioxide Level 26 mmol/L (21-32) Anion Gap 13 (6-14) Blood Urea Nitrogen 5 mg/dL (7-20) Creatinine 0.7 mg/dL (0.6-1.0) Estimated GFR (Cockcroft-Gault) 80.7 Glucose Level 74 mg/dL (70-99) Calcium Level 8.4 mg/dL (8.5-10.1) Phosphorus Level 2.4 mg/dL (2.6-4.7) Albumin 3.1 g/dL (3.4-5.0) Medications Current Medications Fentanyl Citrate (Fentanyl 2ml Vial) 25 mcg PRN Q15MIN PRN IV PAIN GREATER THAN 3/10 Last administered on 09/06/19at 16:36; Start 09/06/19 at 14:30; Stop 09/06/19 at 21:00; Status DC Famotidine (Pepcid Vial) 20 mg 1X ONCE IVP Last administered on 09/06/19at 15:00; Start 09/06/19 at 14:30; Stop 09/06/19 at 14:35; Status DC Ondansetron HCl (Zofran) 4 mg 1X ONCE IVP Last administered on 09/06/19at 14:59; Start 09/06/19 at 14:30; Stop 09/06/19 at 14:35; Status DC Sodium Chloride 1,000 ml @ 1,000 mls/hr 1X ONCE IV Last administered on 09/06/19at 14:33; Start 09/06/19 at 14:30; Stop 09/06/19 at 15:29; Status DC Dicyclomine HCl (Bentyl) 20 mg 1X ONCE PO Last administered on 09/06/19at 14:58; Start 09/06/19 at 14:30; Stop 09/06/19 at 14:35; Status DC Iohexol (Omnipaque 300 Mg/ml) 60 ml 1X ONCE IV Last administered on 09/06/19at 15:00; Start 09/06/19 at 15:00; Stop 09/06/19 at 15:01; Status DC Sodium Chloride 1,000 ml @ 100 mls/hr Q10H IV Last administered on 09/10/19at 06:58; Start 09/06/19 at 17:05; Stop 09/10/19 at 15:35; Status DC Ondansetron HCl (Zofran) 4 mg PRN Q4HRS PRN IV NAUSEA/VOMITING, 1st CHOICE Last administered on 09/10/19at 08:52; Start 09/06/19 at 17:15 Acetaminophen (Tylenol) 650 mg PRN Q4HRS PRN PO TEMP OVER 100.4F OR MILD PAIN Last administered on 09/09/19at 05:03; Start 09/06/19 at 17:15 Acetaminophen (Tylenol Supp) 650 mg PRN Q4HRS PRN ND TEMP OVER 100.4F OR MILD PAIN; Start 09/06/19 at 17:15 Docusate Sodium (Colace) 100 mg PRN BID PRN PO CONSTIPATION Last administered on 09/07/19at 21:25; Start 09/06/19 at 17:15 Albuterol Sulfate (Ventolin Neb Soln) 2.5 mg PRN Q4HRS PRN NEB SHORTNESS OF BREATH; Start 09/06/19 at 17:15 Guaifenesin (Robitussin) 200 mg PRN Q4HRS PRN PO COUGH; Start 09/06/19 at 17:15 Lorazepam (Ativan Inj) 1 mg PRN Q4HRS PRN IV ANXIETY / AGITATION Last administered on 09/09/19at 17:31; Start 09/06/19 at 17:15 Ondansetron HCl (Zofran) 4 mg PRN Q8HRS PRN IV NAUSEA/VOMITING; Start 09/06/19 at 18:15; Stop 09/07/19 at 18:14; Status UNV Morphine Sulfate (Morphine Sulfate) 2 mg PRN Q2HR PRN IV PAIN; Start 09/06/19 at 18:15; Stop 09/06/19 at 18:45; Status DC Sodium Chloride 1,000 ml @ 100 mls/hr 1X ONCE IV ; Start 09/06/19 at 18:15; Stop 09/07/19 at 04:14; Status UNV Prochlorperazine Edisylate (Compazine) 10 mg PRN Q8HRS PRN IV NAUSEA, 2nd CHOICE; Start 09/06/19 at 18:15 Morphine Sulfate (Morphine Sulfate) 2 mg PRN Q2HR PRN IV PAIN Last administered on 09/07/19at 22:54; Start 09/06/19 at 18:45 Famotidine (Pepcid Vial) 20 mg BID IVP Last administered on 09/11/19at 08:03; Start 09/06/19 at 21:00 Latanoprost (Xalatan) 1 drop QHS OU Last administered on 09/10/19at 20:36; Start 09/07/19 at 21:00 Iohexol (Omnipaque 300 Mg/ml) 400 ml 1X ONCE IJ Last administered on 09/10/19at 12:17; Start 09/10/19 at 11:15; Stop 09/10/19 at 11:16; Status DC Info (CONTRAST GIVEN -- Rx MONITORING) 1 each PRN DAILY PRN MC SEE COMMENTS; Start 09/10/19 at 11:15; Stop 09/12/19 at 11:14 Sodium Chloride 1,000 ml @ 75 mls/hr 1X ONCE IV Last administered on 09/10/19at 17:22; Start 09/10/19 at 15:45; Stop 09/11/19 at 05:04; Status DC Enoxaparin Sodium (Lovenox 40mg Syringe) 40 mg Q24H SQ Last administered on 09/11/19at 10:16; Start 09/11/19 at 09:00 Potassium Chloride/Dextrose/ Sod Cl 1,000 ml @ 80 mls/hr CONT PRN IV SEE I/O RECORD; Start 09/11/19 at 09:00; Stop 09/11/19 at 09:15; Status DC Potassium Chloride/Dextrose/ Sod Cl 1,000 ml @ 80 mls/hr [id number] IV Last administered on 09/11/19at 10:15; Start 09/11/19 at 09:15 Active Scripts Active Reported Acetaminophen 500 Mg Tablet 1 Tab PO PRN Q6HRS PRN 15 Days Aspirin 81 Mg Tab.chew 1 Tab PO DAILY Triamterene 50 Mg Capsule 25 Mg PO QHS Verapamil Er (Verapamil Hcl) 240 Mg Cap24h.pel 1 Cap PO HS Travatan Z (Travoprost) 5 Ml Drops 5 Ml OU QHS Celebrex (Celecoxib) 200 Mg Capsule 1 Cap PO DAILY Vitals/I & O Vital Sign - Last 24 Hours 09/10/19 09/10/19 09/10/19 09/10/19 15:00 19:00 19:59 23:00 Temp 98.6 98.6 98.1 98.6 98.6 98.1 Pulse 82 84 77 Resp 18 18 16 B/P (MAP) 159/99 (119) 145/65 (91) 124/70 (88) Pulse Ox 95 97 97 O2 Delivery Room Air Room Air Room Air Room Air 09/11/19 09/11/19 09/11/19 09/11/19 02:33 07:00 07:30 11:00 Temp 98.0 97.8 97.8 98.0 97.8 97.8 Pulse 80 79 79 Resp 16 16 16 B/P (MAP) 159/66 (97) 142/67 (92) 171/64 (99) Pulse Ox 95 97 94 O2 Delivery Room Air Room Air Room Air Room Air Intake and Output 09/10/19 09/10/19 09/11/19 15:00 23:00 07:00 Intake Total 0 ml Output Total 2550 ml Balance -2550 ml Hemodynamically unstable?: No Is patient in severe pain?: No Is NPO status required?: Yes JOSE L PIERRE MD Sep 11, 2019 11:55
[2019-09-11 15:00] VITALS: BP 154/67
[2019-09-11 19:00] VITALS: BP 157/58
[2019-09-11] MEDS: ENOXAPARIN 40 MG/0.4 ML SYRINGE. SQ SCH (20:19)
[2019-09-11] MEDS: LATANOPROST 0.005% OPHTH SOLUTION 2.5ML BOTTLE. OU SCH (20:20)
[2019-09-11 23:00] VITALS: BP 170/70
[2019-09-12] MEDS: MORPHINE SULFATE 2 MG/ML VIAL. IV PRN ×2 (01:13→21:38)
[2019-09-12 03:00] VITALS: BP 165/80
[2019-09-12 04:53] LABS: BASO # 0.1 x10^3/uL (0.0-0.2); BASO % 1 % (0-3); EOS # 0.1 x10^3/uL (0.0-0.7); EOS % 1 % (0-3); HEMOGLOBIN 12.3 g/dL (12.0-15.5); LYMPH # 1.6 x10^3/uL (1.0-4.8); LYMPH % 16 % (24-48); MEAN CORPUSCULAR HEMOGLOBIN 31 pg (25-35); MEAN CORPUSCULAR HGB CONC 34 g/dL (31-37); MEAN CORPUSCULAR VOLUME 90 fL (79-100); MONO # 0.7 x10^3/uL (0.0-1.1); MONO % 7 % (0-9); NEUT # 7.7 x10^3/uL (1.8-7.7); NEUT % 77 % (31-73); PLATELET COUNT 203 x10^3/uL (140-400); RED BLOOD COUNT 3.99 x10^6/uL (3.50-5.40); RED CELL DISTRIBUTION WIDTH 13.5 % (11.5-14.5); WHITE BLOOD COUNT 10.1 x10^3/uL (4.0-11.0)
[2019-09-12 05:24] LABS: CALCIUM 8.5 mg/dL (8.5-10.1); CREATININE 0.6 mg/dL (0.6-1.0); GFR 96.4; POTASSIUM 3.1 mmol/L (3.5-5.1)
[2019-09-12] MEDS ORDERED: PHENOL ORAL SPRAY 177ML BOTTLE. PO PRN (06:15)
[2019-09-12 07:00] VITALS: BP 152/73
--- NOTE | 2019-09-12 09:19 | RAD ---
EXAM: ABDOMEN ONE VIEW. HISTORY: Small bowel obstruction. COMPARISON: 09/11/2019. FINDINGS: A frontal view of the abdomen is obtained. The previously noted small bowel contrast has either cleared or resorbed. There is now contrast throughout the colon. Residual small bowel distention is not seen. IMPRESSION: 1. Small bowel contrast has cleared into the colon. No residual small bowel distention by radiographs. Electronically signed by: Indigo Posada MD (09/12/2019 9:16 AM) [facility]
[2019-09-12] MEDS: ENOXAPARIN 40 MG/0.4 ML SYRINGE. SQ SCH ×2 (09:52→21:35)
[2019-09-12] MEDS: FAMOTIDINE 20 MG/2 ML VIAL IVP SCH ×2 (09:53→21:35)
[2019-09-12] MEDS: AA 4.25 %/CALCIUM/LYTES/D5W 1,000 ML IV SCH ×2 (09:57→22:32)
[2019-09-12] MEDS: POTASSIUM CHLORIDE 10MEQ 100 ML IV SCH ×2 (09:59→10:30)
--- NOTE | 2019-09-12 10:13 | PDOC ---
Subjective: Subjective: Had a bad experience here overnight w/ staff clamping NGT, called administration and asked that daughter come stay with her. Also had some left hand swelling yesterday - IV now on other side, swelling improved but daughter has a picture. Says nausea might come back - last occurred a couple days ago. Has stooled several times w/ sesame oil. NG out. No pain currently but did have some abd pain overnight, took pain meds. Objective: Objective: D/w nurse - page out to Dr. Howard re: NGT plans. No output charted this morning before NG came out, but estimating about ~400cc overnight. On PPN. Vital Signs: Vital Signs Date Time Temp Pulse Resp B/P (MAP) Pulse Ox O2 Delivery O2 Flow Rate FiO2 09/12/19 08:52 99 Room Air 09/12/19 07:00 99.0 74 16 152/73 (99) 99.0 Labs: Laboratory Tests Test 09/12/19 04:30 White Blood Count 10.1 x10^3/uL Red Blood Count 3.99 x10^6/uL Hemoglobin 12.3 g/dL Hematocrit 36.0 % Mean Corpuscular Volume 90 fL Mean Corpuscular Hemoglobin 31 pg Mean Corpuscular Hemoglobin Concent 34 g/dL Red Cell Distribution Width 13.5 % Platelet Count 203 x10^3/uL Neutrophils (%) (Auto) 77 % Lymphocytes (%) (Auto) 16 % Monocytes (%) (Auto) 7 % Eosinophils (%) (Auto) 1 % Basophils (%) (Auto) 1 % Neutrophils # (Auto) 7.7 x10^3/uL Lymphocytes # (Auto) 1.6 x10^3/uL Monocytes # (Auto) 0.7 x10^3/uL Eosinophils # (Auto) 0.1 x10^3/uL Basophils # (Auto) 0.1 x10^3/uL Sodium Level 142 mmol/L Potassium Level 3.1 mmol/L Chloride Level 106 mmol/L Carbon Dioxide Level 27 mmol/L Anion Gap 9 Blood Urea Nitrogen 4 mg/dL Creatinine 0.6 mg/dL Estimated GFR (Cockcroft-Gault) 96.4 Glucose Level 112 mg/dL Calcium Level 8.5 mg/dL Imaging: KUB 09/12 IMPRESSION: 1. Small bowel contrast has cleared into the colon. No residual small bowel distention by radiographs. PE: GEN: NAD, daughter and nurse payment manager in room LUNGS: CTAB anteriorly HEART: RRR ABD: quiet BS - less active today, non-tender, soft EXTREMITY: puffiness in left hand - improved when compared to picture on daughter's cell phone from yesterday NEURO/PSYCH: A & O 3 A/P: SBO -- Listened to pt/family concerns. X-ray pending when I saw - results available now as above. Considering this and since she has stooled, seems reasonable to leave NGT out. Await surgical thoughts. Hemodynamically unstable?: No Is patient in severe pain?: No Is NPO status required?: Yes LUCRECIA CORDON Sep 12, 2019 10:13
--- NOTE | 2019-09-12 10:43 | PDOC ---
PROGRESS NOTES Chief Complaint Chief Complaint PArtial SBO resolving Obesity Hypokalemia sec to NPO x 7 days Poor surgical candidate History of Present Illness History of Present Illness accidentally pulled out NGT KUB today shoes improovement K 3.1, IV is burning PLAN: MIght be able to start liq diet Await for GS rounds Add prn labetolol for high BP cont procalamine for now HOLD OFF putting back NGT for now IF diet starts, PO kcl dw RN Iisa and fam at bedside SNU recommened by pT, patient was agreeable Vitals Vitals Vital Signs Date Time Temp Pulse Resp B/P (MAP) Pulse Ox O2 Delivery O2 Flow Rate FiO2 09/12/19 08:52 99 Room Air 09/12/19 07:00 99.0 74 16 152/73 (99) 99.0 Physical Exam General: Alert, Oriented X3, No acute distress Heart: Regular rate, Normal S1, Normal S2 Lungs: Clear Abdomen: Soft, No tenderness, Other (obese) Extremities: No clubbing, No cyanosis Skin: No rashes, No breakdown Labs LABS Laboratory Tests Test 09/12/19 04:30 White Blood Count 10.1 x10^3/uL (4.0-11.0) Red Blood Count 3.99 x10^6/uL (3.50-5.40) Hemoglobin 12.3 g/dL (12.0-15.5) Hematocrit 36.0 % (36.0-47.0) Mean Corpuscular Volume 90 fL (79-100) Mean Corpuscular Hemoglobin 31 pg (25-35) Mean Corpuscular Hemoglobin Concent 34 g/dL (31-37) Red Cell Distribution Width 13.5 % (11.5-14.5) Platelet Count 203 x10^3/uL (140-400) Neutrophils (%) (Auto) 77 % (31-73) Lymphocytes (%) (Auto) 16 % (24-48) Monocytes (%) (Auto) 7 % (0-9) Eosinophils (%) (Auto) 1 % (0-3) Basophils (%) (Auto) 1 % (0-3) Neutrophils # (Auto) 7.7 x10^3/uL (1.8-7.7) Lymphocytes # (Auto) 1.6 x10^3/uL (1.0-4.8) Monocytes # (Auto) 0.7 x10^3/uL (0.0-1.1) Eosinophils # (Auto) 0.1 x10^3/uL (0.0-0.7) Basophils # (Auto) 0.1 x10^3/uL (0.0-0.2) Sodium Level 142 mmol/L (136-145) Potassium Level 3.1 mmol/L (3.5-5.1) Chloride Level 106 mmol/L (98-107) Carbon Dioxide Level 27 mmol/L (21-32) Anion Gap 9 (6-14) Blood Urea Nitrogen 4 mg/dL (7-20) Creatinine 0.6 mg/dL (0.6-1.0) Estimated GFR (Cockcroft-Gault) 96.4 Glucose Level 112 mg/dL (70-99) Calcium Level 8.5 mg/dL (8.5-10.1) Review of Systems Review of Systems high bp, all else is neg reviewed with her Assessment and Plan Assessmemt and Plan Problems Medical Problems: (1) SBO (small bowel obstruction) Status: Acute Comment Review of Relevant I have reviewed the following items missael (where applicable) has been applied. Labs Laboratory Tests Test 09/11/19 05:50 09/12/19 04:30 Sodium Level 148 mmol/L (136-145) 142 mmol/L (136-145) Potassium Level 3.0 mmol/L (3.5-5.1) 3.1 mmol/L (3.5-5.1) Chloride Level 109 mmol/L (98-107) 106 mmol/L (98-107) Carbon Dioxide Level 26 mmol/L (21-32) 27 mmol/L (21-32) Anion Gap 13 (6-14) 9 (6-14) Blood Urea Nitrogen 5 mg/dL (7-20) 4 mg/dL (7-20) Creatinine 0.7 mg/dL (0.6-1.0) 0.6 mg/dL (0.6-1.0) Estimated GFR (Cockcroft-Gault) 80.7 96.4 Glucose Level 74 mg/dL (70-99) 112 mg/dL (70-99) Calcium Level 8.4 mg/dL (8.5-10.1) 8.5 mg/dL (8.5-10.1) Phosphorus Level 2.4 mg/dL (2.6-4.7) Albumin 3.1 g/dL (3.4-5.0) White Blood Count 10.1 x10^3/uL (4.0-11.0) Red Blood Count 3.99 x10^6/uL (3.50-5.40) Hemoglobin 12.3 g/dL (12.0-15.5) Hematocrit 36.0 % (36.0-47.0) Mean Corpuscular Volume 90 fL (79-100) Mean Corpuscular Hemoglobin 31 pg (25-35) Mean Corpuscular Hemoglobin Concent 34 g/dL (31-37) Red Cell Distribution Width 13.5 % (11.5-14.5) Platelet Count 203 x10^3/uL (140-400) Neutrophils (%) (Auto) 77 % (31-73) Lymphocytes (%) (Auto) 16 % (24-48) Monocytes (%) (Auto) 7 % (0-9) Eosinophils (%) (Auto) 1 % (0-3) Basophils (%) (Auto) 1 % (0-3) Neutrophils # (Auto) 7.7 x10^3/uL (1.8-7.7) Lymphocytes # (Auto) 1.6 x10^3/uL (1.0-4.8) Monocytes # (Auto) 0.7 x10^3/uL (0.0-1.1) Eosinophils # (Auto) 0.1 x10^3/uL (0.0-0.7) Basophils # (Auto) 0.1 x10^3/uL (0.0-0.2) Laboratory Tests Test 09/12/19 04:30 White Blood Count 10.1 x10^3/uL (4.0-11.0) Red Blood Count 3.99 x10^6/uL (3.50-5.40) Hemoglobin 12.3 g/dL (12.0-15.5) Hematocrit 36.0 % (36.0-47.0) Mean Corpuscular Volume 90 fL (79-100) Mean Corpuscular Hemoglobin 31 pg (25-35) Mean Corpuscular Hemoglobin Concent 34 g/dL (31-37) Red Cell Distribution Width 13.5 % (11.5-14.5) Platelet Count 203 x10^3/uL (140-400) Neutrophils (%) (Auto) 77 % (31-73) Lymphocytes (%) (Auto) 16 % (24-48) Monocytes (%) (Auto) 7 % (0-9) Eosinophils (%) (Auto) 1 % (0-3) Basophils (%) (Auto) 1 % (0-3) Neutrophils # (Auto) 7.7 x10^3/uL (1.8-7.7) Lymphocytes # (Auto) 1.6 x10^3/uL (1.0-4.8) Monocytes # (Auto) 0.7 x10^3/uL (0.0-1.1) Eosinophils # (Auto) 0.1 x10^3/uL (0.0-0.7) Basophils # (Auto) 0.1 x10^3/uL (0.0-0.2) Sodium Level 142 mmol/L (136-145) Potassium Level 3.1 mmol/L (3.5-5.1) Chloride Level 106 mmol/L (98-107) Carbon Dioxide Level 27 mmol/L (21-32) Anion Gap 9 (6-14) Blood Urea Nitrogen 4 mg/dL (7-20) Creatinine 0.6 mg/dL (0.6-1.0) Estimated GFR (Cockcroft-Gault) 96.4 Glucose Level 112 mg/dL (70-99) Calcium Level 8.5 mg/dL (8.5-10.1) Medications Current Medications Fentanyl Citrate (Fentanyl 2ml Vial) 25 mcg PRN Q15MIN PRN IV PAIN GREATER THAN 3/10 Last administered on 09/06/19at 16:36; Start 09/06/19 at 14:30; Stop at 21:00; Status DC Famotidine (Pepcid Vial) 20 mg 1X ONCE IVP Last administered on 09/06/19at 15:00; Start 09/06/19 at 14:30; Stop 09/06/19 at 14:35; Status DC Ondansetron HCl (Zofran) 4 mg 1X ONCE IVP Last administered on 09/06/19at 14:59; Start 09/06/19 at 14:30; Stop 09/06/19 at 14:35; Status DC Sodium Chloride 1,000 ml @ 1,000 mls/hr 1X ONCE IV Last administered on 09/06/19at 14:33; Start 09/06/19 at 14:30; Stop 09/06/19 at 15:29; Status DC Dicyclomine HCl (Bentyl) 20 mg 1X ONCE PO Last administered on 09/06/19at 14:58; Start 09/06/19 at 14:30; Stop 09/06/19 at 14:35; Status DC Iohexol (Omnipaque 300 Mg/ml) 60 ml 1X ONCE IV Last administered on 09/06/19at 15:00; Start 09/06/19 at 15:00; Stop 09/06/19 at 15:01; Status DC Sodium Chloride 1,000 ml @ 100 mls/hr Q10H IV Last administered on 09/10/19at 06:58; Start 09/06/19 at 17:05; Stop 09/10/19 at 15:35; Status DC Ondansetron HCl (Zofran) 4 mg PRN Q4HRS PRN IV NAUSEA/VOMITING, 1st CHOICE Last administered on 09/10/19at 08:52; Start 09/06/19 at 17:15 Acetaminophen (Tylenol) 650 mg PRN Q4HRS PRN PO TEMP OVER 100.4F OR MILD PAIN Last administered on 09/09/19at 05:03; Start 09/06/19 at 17:15 Acetaminophen (Tylenol Supp) 650 mg PRN Q4HRS PRN [place] TEMP OVER 100.4F OR MILD PAIN; Start 09/06/19 at 17:15 Docusate Sodium (Colace) 100 mg PRN BID PRN PO CONSTIPATION Last administered on 09/07/19at 21:25; Start 09/06/19 at 17:15 Albuterol Sulfate (Ventolin Neb Soln) 2.5 mg PRN Q4HRS PRN NEB SHORTNESS OF BREATH; Start 09/06/19 at 17:15 Guaifenesin (Robitussin) 200 mg PRN Q4HRS PRN PO COUGH; Start 09/06/19 at 17:15 Lorazepam (Ativan Inj) 1 mg PRN Q4HRS PRN IV ANXIETY / AGITATION Last administered on 09/09/19at 17:31; Start 09/06/19 at 17:15 Ondansetron HCl (Zofran) 4 mg PRN Q8HRS PRN IV NAUSEA/VOMITING; Start 09/06/19 at 18:15; Stop 09/07/19 at 18:14; Status UNV Morphine Sulfate (Morphine Sulfate) 2 mg PRN Q2HR PRN IV PAIN; Start 09/06/19 at 18:15; Stop 09/06/19 at 18:45; Status DC Sodium Chloride 1,000 ml @ 100 mls/hr 1X ONCE IV ; Start 09/06/19 at 18:15; Stop 09/07/19 at 04:14; Status UNV Prochlorperazine Edisylate (Compazine) 10 mg PRN Q8HRS PRN IV NAUSEA, 2nd CHOICE; Start 09/06/19 at 18:15 Morphine Sulfate (Morphine Sulfate) 2 mg PRN Q2HR PRN IV PAIN Last administered on 09/12/19at 01:13; Start 09/06/19 at 18:45 Famotidine (Pepcid Vial) 20 mg BID IVP Last administered on 09/12/19at 09:53; Start 09/06/19 at 21:00 Latanoprost (Xalatan) 1 drop QHS OU Last administered on 09/11/19at 20:20; Start 09/07/19 at 21:00 Iohexol (Omnipaque 300 Mg/ml) 400 ml 1X ONCE IJ Last administered on 09/10/19at 12:17; Start 09/10/19 at 11:15; Stop 09/10/19 at 11:16; Status DC Info (CONTRAST GIVEN -- Rx MONITORING) 1 each PRN DAILY PRN MC SEE COMMENTS; Start 09/10/19 at 11:15; Stop 09/12/19 at 11:14 Sodium Chloride 1,000 ml @ 75 mls/hr 1X ONCE IV Last administered on 09/10/19at 17:22; Start 09/10/19 at 15:45; Stop 09/11/19 at 05:04; Status DC Enoxaparin Sodium (Lovenox 40mg Syringe) 40 mg Q24H SQ Last administered on 09/11/19at 10:16; Start 09/11/19 at 09:00; Stop 09/11/19 at 14:48; Status DC Potassium Chloride/Dextrose/ Sod Cl 1,000 ml @ 80 mls/hr CONT PRN IV SEE I/O RECORD; Start 09/11/19 at 09:00; Stop 09/11/19 at 09:15; Status DC Potassium Chloride/Dextrose/ Sod Cl 1,000 ml @ 80 mls/hr [id number] IV Last admi nistered on 09/11/19at 23:28; Start 09/11/19 at 09:15; Stop 09/12/19 at 08:57; Status DC Enoxaparin Sodium (Lovenox 40mg Syringe) 40 mg BID SQ Last administered on 09/12/19at 09:52; Start 09/11/19 at 21:00 Phenol (Chloraseptic) 1 spray PRN Q2HR PRN PO SORE THROAT; Start 09/12/19 at 06:15 Potassium Chloride/Water 100 ml @ 100 mls/hr Q1H IV Last administered on 09/12/19at 09:59; Start 09/12/19 at 09:30; Stop 09/12/19 at 11:29 Amino Acids/ Electrolytes/ Dextrose 1,000 ml @ 80 mls/hr [id number] IV Last administered on 09/12/19at 09:57; Start 09/12/19 at 09:30 Active Scripts Active Reported Acetaminophen 500 Mg Tablet 1 Tab PO PRN Q6HRS PRN 15 Days Aspirin 81 Mg Tab.chew 1 Tab PO DAILY Triamterene 50 Mg Capsule 25 Mg PO QHS Verapamil Er (Verapamil Hcl) 240 Mg Cap24h.pel 1 Cap PO HS Travatan Z (Travoprost) 5 Ml Drops 5 Ml OU QHS Celebrex (Celecoxib) 200 Mg Capsule 1 Cap PO DAILY Vitals/I & O Vital Sign - Last 24 Hours 09/11/19 09/11/19 09/11/19 09/11/19 11:00 15:00 19:00 20:00 Temp 97.8 98.2 97.9 97.8 98.2 97.9 Pulse 79 87 80 Resp 16 16 18 B/P (MAP) 171/64 (99) 154/67 (96) 157/58 (91) Pulse Ox 94 96 94 O2 Delivery Room Air Room Air Room Air Room Air 09/11/19 09/12/19 09/12/19 09/12/19 23:00 01:13 01:43 03:00 Temp 98.6 97.9 98.6 97.9 Pulse 77 80 Resp 18 20 20 18 B/P (MAP) 170/70 (103) 165/80 (108) Pulse Ox 94 94 94 94 O2 Delivery Room Air Room Air Room Air Room Air 09/12/19 09/12/19 09/12/19 07:00 07:42 08:52 Temp 99.0 99.0 Pulse 74 Resp 16 B/P (MAP) 152/73 (99) Pulse Ox 96 99 O2 Delivery Room Air Room Air Room Air Intake and Output 09/11/19 09/11/19 09/12/19 15:00 23:00 07:00 Output Total 450 ml Balance -450 ml Hemodynamically unstable?: No Is patient in severe pain?: No Is NPO status required?: Yes JOSE L PIERRE MD Sep 12, 2019 10:43
[2019-09-12] MEDS ORDERED: LABETALOL 20 MG/4 ML DISP.SYRIN. IVP PRN (10:45)
[2019-09-12 11:00] VITALS: BP 145/69
--- NOTE | 2019-09-12 11:54 | PDOC ---
SURGICAL PROGRESS NOTE Subjective pt seen, examined NG out has been having stools she is concerned about not getting her home meds Vital Signs Vital Signs Date Time Temp Pulse Resp B/P (MAP) Pulse Ox O2 Delivery O2 Flow Rate FiO2 09/12/19 08:52 99 Room Air 09/12/19 07:00 99.0 74 16 152/73 (99) 99.0 I&O Intake and Output 09/12/19 07:00 Output Total 450 ml Balance -450 ml Output Gastric Drainage Total 450 ml # Voids 4 # Bowel Movements 3 PATIENT HAS A GARCIA: No General: Alert, Oriented X3, No acute distress Abdomen: Soft Labs Laboratory Tests Test 09/11/19 05:50 09/12/19 04:30 Sodium Level 148 mmol/L (136-145) 142 mmol/L (136-145) Potassium Level 3.0 mmol/L (3.5-5.1) 3.1 mmol/L (3.5-5.1) Chloride Level 109 mmol/L (98-107) 106 mmol/L (98-107) Carbon Dioxide Level 26 mmol/L (21-32) 27 mmol/L (21-32) Anion Gap 13 (6-14) 9 (6-14) Blood Urea Nitrogen 5 mg/dL (7-20) 4 mg/dL (7-20) Creatinine 0.7 mg/dL (0.6-1.0) 0.6 mg/dL (0.6-1.0) Estimated GFR (Cockcroft-Gault) 80.7 96.4 Glucose Level 74 mg/dL (70-99) 112 mg/dL (70-99) Calcium Level 8.4 mg/dL (8.5-10.1) 8.5 mg/dL (8.5-10.1) Phosphorus Level 2.4 mg/dL (2.6-4.7) Albumin 3.1 g/dL (3.4-5.0) White Blood Count 10.1 x10^3/uL (4.0-11.0) Red Blood Count 3.99 x10^6/uL (3.50-5.40) Hemoglobin 12.3 g/dL (12.0-15.5) Hematocrit 36.0 % (36.0-47.0) Mean Corpuscular Volume 90 fL (79-100) Mean Corpuscular Hemoglobin 31 pg (25-35) Mean Corpuscular Hemoglobin Concent 34 g/dL (31-37) Red Cell Distribution Width 13.5 % (11.5-14.5) Platelet Count 203 x10^3/uL (140-400) Neutrophils (%) (Auto) 77 % (31-73) Lymphocytes (%) (Auto) 16 % (24-48) Monocytes (%) (Auto) 7 % (0-9) Eosinophils (%) (Auto) 1 % (0-3) Basophils (%) (Auto) 1 % (0-3) Neutrophils # (Auto) 7.7 x10^3/uL (1.8-7.7) Lymphocytes # (Auto) 1.6 x10^3/uL (1.0-4.8) Monocytes # (Auto) 0.7 x10^3/uL (0.0-1.1) Eosinophils # (Auto) 0.1 x10^3/uL (0.0-0.7) Basophils # (Auto) 0.1 x10^3/uL (0.0-0.2) Laboratory Tests Test 09/12/19 04:30 White Blood Count 10.1 x10^3/uL (4.0-11.0) Red Blood Count 3.99 x10^6/uL (3.50-5.40) Hemoglobin 12.3 g/dL (12.0-15.5) Hematocrit 36.0 % (36.0-47.0) Mean Corpuscular Volume 90 fL (79-100) Mean Corpuscular Hemoglobin 31 pg (25-35) Mean Corpuscular Hemoglobin Concent 34 g/dL (31-37) Red Cell Distribution Width 13.5 % (11.5-14.5) Platelet Count 203 x10^3/uL (140-400) Neutrophils (%) (Auto) 77 % (31-73) Lymphocytes (%) (Auto) 16 % (24-48) Monocytes (%) (Auto) 7 % (0-9) Eosinophils (%) (Auto) 1 % (0-3) Basophils (%) (Auto) 1 % (0-3) Neutrophils # (Auto) 7.7 x10^3/uL (1.8-7.7) Lymphocytes # (Auto) 1.6 x10^3/uL (1.0-4.8) Monocytes # (Auto) 0.7 x10^3/uL (0.0-1.1) Eosinophils # (Auto) 0.1 x10^3/uL (0.0-0.7) Basophils # (Auto) 0.1 x10^3/uL (0.0-0.2) Sodium Level 142 mmol/L (136-145) Potassium Level 3.1 mmol/L (3.5-5.1) Chloride Level 106 mmol/L (98-107) Carbon Dioxide Level 27 mmol/L (21-32) Anion Gap 9 (6-14) Blood Urea Nitrogen 4 mg/dL (7-20) Creatinine 0.6 mg/dL (0.6-1.0) Estimated GFR (Cockcroft-Gault) 96.4 Glucose Level 112 mg/dL (70-99) Calcium Level 8.5 mg/dL (8.5-10.1) I have reviewed the following KUB from this AM is reviewed Problem List Problems Medical Problems: (1) SBO (small bowel obstruction) Status: Acute Assessment/Plan SBO, resolved obesity HPT start clears continue activity resume home meds per IPC d/w patient and her family GREY WIGGINS MD Sep 12, 2019 11:54
[2019-09-12] MEDS ORDERED: ASPIRIN CHEWABLE 81 MG TABLET. PO SCH (14:30)
[2019-09-12 15:00] VITALS: BP 131/49
--- NOTE | 2019-09-12 16:27 | NUR ---
SW following. Discussed with RN, PT/OT recommending SNU. SW met with pt and pt's family at bedside. Pt does not want to go to SNU and does not want home health upon discharge. Pt aware if she changes her mind to request SW, or have her PCP order it. RN notified.
[2019-09-12 19:00] VITALS: BP 133/42
[2019-09-12] MEDS ORDERED: TRIAMTERENE 25 MG PO SCH (21:00)
[2019-09-12] MEDS: LATANOPROST 0.005% OPHTH SOLUTION 2.5ML BOTTLE. OU SCH (21:34)
[2019-09-12] MEDS: ASPIRIN CHEWABLE 81 MG TABLET. PO SCH (21:35)
[2019-09-12] MEDS: VERAPAMIL SR 120 MG TABLET.ER. PO SCH (22:32)
[2019-09-12 23:00] VITALS: BP 118/61
[2019-09-13 03:00] VITALS: BP 134/54
[2019-09-13 04:51] LABS: CALCIUM 8.5 mg/dL (8.5-10.1); MAGNESIUM 1.7 mg/dL (1.8-2.4)
[2019-09-13 07:00] VITALS: BP 151/64
[2019-09-13] MEDS: FAMOTIDINE 20 MG/2 ML VIAL IVP SCH (08:12)
[2019-09-13] MEDS: ENOXAPARIN 40 MG/0.4 ML SYRINGE. SQ SCH ×2 (08:13→21:08)
[2019-09-13] MEDS: ACETAMINOPHEN 500 MG TABLET PO PRN ×3 (08:13→23:44)
--- NOTE | 2019-09-13 09:56 | PDOC ---
Subjective: Subjective: No nausea, occasional left-sided abd cramps, passed a lot of gas last night and small amount of stool. 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 Objective: Vital Signs: Vital Signs Date Time Temp Pulse Resp B/P (MAP) Pulse Ox O2 Delivery O2 Flow Rate FiO2 09/13/19 08:00 Room Air 09/13/19 07:00 98.6 67 18 151/64 (93) 96 98.6 Labs: Laboratory Tests Test 09/13/19 03:35 Potassium Level 3.0 mmol/L Calcium Level 8.5 mg/dL Magnesium Level 1.7 mg/dL PE: GEN: NAD, family present, holding heating pad against neck, a few sips taken from apple juice LUNGS: CTAB HEART: RRR ABD: BS+, soft, non-tender NEURO/PSYCH: A & O 3 A/P: Partial SBO - resolving -- Pain control for arthritis per primary. Encouraged PO intake and activity. Hemodynamically unstable?: No Is patient in severe pain?: No Is NPO status required?: No LUCRECIA CORDON Sep 13, 2019 09:56
[2019-09-13] MEDS ORDERED: POLYETHYLENE GLYCOL 3350 17 GM PACKET. PO PRN (10:00)
--- NOTE | 2019-09-13 10:29 | PDOC ---
PROGRESS NOTES Chief Complaint Chief Complaint impression PArtial SBO resolving Obesity Hypokalemia sec to NPO x 7 days Poor surgical candidate History of Present Illness History of Present Illness PLAN: MIght be able to start liq diet Add prn labetolol for high BP cont procalamine for now IF diet starts, PO kcl dw RN and fam at bedside SNU recommened by pT, patient was agreeable Vitals Vitals Vital Signs Date Time Temp Pulse Resp B/P (MAP) Pulse Ox O2 Delivery O2 Flow Rate FiO2 09/13/19 08:00 Room Air 09/13/19 07:00 98.6 67 18 151/64 (93) 96 98.6 Physical Exam General: Alert, Oriented X3, Cooperative, No acute distress Heart: Regular rate, Normal S1, Normal S2 Lungs: Clear Abdomen: Soft, No masses Extremities: No clubbing, No cyanosis Skin: No rashes, No breakdown Labs LABS EXAM: ABDOMEN ONE VIEW. HISTORY: Small bowel obstruction. COMPARISON: 09/11/2019. FINDINGS: A frontal view of the abdomen is obtained. The previously noted small bowel contrast has either cleared or resorbed. There is now contrast throughout the colon. Residual small bowel distention is not seen. IMPRESSION: 1. Small bowel contrast has cleared into the colon. No residual small bowel distention by radiographs. Electronically signed by: Indigo Posada MD (09/12/2019 9:16 AM) [facility] DICTATED and SIGNED BY: SIMONA POSADA MD DATE: 09/12/19 0916 Laboratory Tests Test 09/13/19 03:35 Potassium Level 3.0 mmol/L (3.5-5.1) Calcium Level 8.5 mg/dL (8.5-10.1) Magnesium Level 1.7 mg/dL (1.8-2.4) Assessment and Plan Assessmemt and Plan Problems Medical Problems: (1) SBO (small bowel obstruction) Status: Acute Comment Review of Relevant I have reviewed the following items missael (where applicable) has been applied. Labs Laboratory Tests Test 09/12/19 04:30 09/13/19 03:35 White Blood Count 10.1 x10^3/uL (4.0-11.0) Red Blood Count 3.99 x10^6/uL (3.50-5.40) Hemoglobin 12.3 g/dL (12.0-15.5) Hematocrit 36.0 % (36.0-47.0) Mean Corpuscular Volume 90 fL (79-100) Mean Corpuscular Hemoglobin 31 pg (25-35) Mean Corpuscular Hemoglobin Concent 34 g/dL (31-37) Red Cell Distribution Width 13.5 % (11.5-14.5) Platelet Count 203 x10^3/uL (140-400) Neutrophils (%) (Auto) 77 % (31-73) Lymphocytes (%) (Auto) 16 % (24-48) Monocytes (%) (Auto) 7 % (0-9) Eosinophils (%) (Auto) 1 % (0-3) Basophils (%) (Auto) 1 % (0-3) Neutrophils # (Auto) 7.7 x10^3/uL (1.8-7.7) Lymphocytes # (Auto) 1.6 x10^3/uL (1.0-4.8) Monocytes # (Auto) 0.7 x10^3/uL (0.0-1.1) Eosinophils # (Auto) 0.1 x10^3/uL (0.0-0.7) Basophils # (Auto) 0.1 x10^3/uL (0.0-0.2) Sodium Level 142 mmol/L (136-145) Potassium Level 3.1 mmol/L (3.5-5.1) 3.0 mmol/L (3.5-5.1) Chloride Level 106 mmol/L (98-107) Carbon Dioxide Level 27 mmol/L (21-32) Anion Gap 9 (6-14) Blood Urea Nitrogen 4 mg/dL (7-20) Creatinine 0.6 mg/dL (0.6-1.0) Estimated GFR (Cockcroft-Gault) 96.4 Glucose Level 112 mg/dL (70-99) Calcium Level 8.5 mg/dL (8.5-10.1) 8.5 mg/dL (8.5-10.1) Magnesium Level 1.7 mg/dL (1.8-2.4) Laboratory Tests Test 09/13/19 03:35 Potassium Level 3.0 mmol/L (3.5-5.1) Calcium Level 8.5 mg/dL (8.5-10.1) Magnesium Level 1.7 mg/dL (1.8-2.4) Medications Current Medications Fentanyl Citrate (Fentanyl 2ml Vial) 25 mcg PRN Q15MIN PRN IV PAIN GREATER THAN 3/10 Last administered on 09/06/19at 16:36; Start 09/06/19 at 14:30; Stop 09/06/19 at 21:00; Status DC Famotidine (Pepcid Vial) 20 mg 1X ONCE IVP Last administered on 09/06/19at 15:00; Start 09/06/19 at 14:30; Stop 09/06/19 at 14:35; Status DC Ondansetron HCl (Zofran) 4 mg 1X ONCE IVP Last administered on 09/06/19at 14:59; Start 09/06/19 at 14:30; Stop 09/06/19 at 14:35; Status DC Sodium Chloride 1,000 ml @ 1,000 mls/hr 1X ONCE IV Last administered on 09/06/19at 14:33; Start 09/06/19 at 14:30; Stop 09/06/19 at 15:29; Status DC Dicyclomine HCl (Bentyl) 20 mg 1X ONCE PO Last administered on 09/06/19at 14:58; Start 09/06/19 at 14:30; Stop 09/06/19 at 14:35; Status DC Iohexol (Omnipaque 300 Mg/ml) 60 ml 1X ONCE IV Last administered on 09/06/19at 15:00; Start 09/06/19 at 15:00; Stop 09/06/19 at 15:01; Status DC Sodium Chloride 1,000 ml @ 100 mls/hr Q10H IV Last administered on 09/10/19at 06:58; Start 09/06/19 at 17:05; Stop 09/10/19 at 15:35; Status DC Ondansetron HCl (Zofran) 4 mg PRN Q4HRS PRN IV NAUSEA/VOMITING, 1st CHOICE Last administered on 09/10/19at 08:52; Start 09/06/19 at 17:15 Acetaminophen (Tylenol) 650 mg PRN Q4HRS PRN PO TEMP OVER 100.4F OR MILD PAIN Last administered on 09/09/19at 05:03; Start 09/06/19 at 17:15; Stop 09/12/19 at 14:37; Status DC Acetaminophen (Tylenol Supp) 650 mg PRN Q4HRS PRN [place] TEMP OVER 100.4F OR MILD PAIN; Start 09/06/19 at 17:15 Docusate Sodium (Colace) 100 mg PRN BID PRN PO CONSTIPATION Last administered on 09/07/19at 21:25; Start 09/06/19 at 17:15 Albuterol Sulfate (Ventolin Neb Soln) 2.5 mg PRN Q4HRS PRN NEB SHORTNESS OF BREATH; Start 09/06/19 at 17:15 Guaifenesin (Robitussin) 200 mg PRN Q4HRS PRN PO COUGH; Start 09/06/19 at 17:15 Lorazepam (Ativan Inj) 1 mg PRN Q4HRS PRN IV ANXIETY / AGITATION Last administered on 09/09/19at 17:31; Start 09/06/19 at 17:15 Ondansetron HCl (Zofran) 4 mg PRN Q8HRS PRN IV NAUSEA/VOMITING; Start 09/06/19 at 18:15; Stop 09/07/19 at 18:14; Status UNV Morphine Sulfate (Morphine Sulfate) 2 mg PRN Q2HR PRN IV PAIN; Start 09/06/19 at 18:15; Stop 09/06/19 at 18:45; Status DC Sodium Chloride 1,000 ml @ 100 mls/hr 1X ONCE IV ; Start 09/06/19 at 18:15; Stop 09/07/19 at 04:14; Status UNV Prochlorperazine Edisylate (Compazine) 10 mg PRN Q8HRS PRN IV NAUSEA, 2nd CHOICE; Start 09/06/19 at 18:15 Morphine Sulfate (Morphine Sulfate) 2 mg PRN Q2HR PRN IV PAIN Last administered on 09/12/19at 21:38; Start 09/06/19 at 18:45 Famotidine (Pepcid Vial) 20 mg BID IVP Last administered on 09/13/19at 08:12; Start 09/06/19 at 21:00; Stop 09/13/19 at 09:57; Status DC Latanoprost (Xalatan) 1 drop QHS OU Last administered on 09/12/19at 21:34; Start 09/07/19 at 21:00 Iohexol (Omnipaque 300 Mg/ml) 400 ml 1X ONCE IJ Last administered on 09/10/19at 12:17; Start 09/10/19 at 11:15; Stop 09/10/19 at 11:16; Status DC Info (CONTRAST GIVEN -- Rx MONITORING) 1 each PRN DAILY PRN MC SEE COMMENTS; Start 09/10/19 at 11:15; Stop 09/12/19 at 11:14; Status DC Sodium Chloride 1,000 ml @ 75 mls/hr 1X ONCE IV Last administered on 09/10/19at 17:22; Start 09/10/19 at 15:45; Stop 09/11/19 at 05:04; Status DC Enoxaparin Sodium (Lovenox 40mg Syringe) 40 mg Q24H SQ Last administered on 09/11/19at 10:16; Start 09/11/19 at 09:00; Stop 09/11/19 at 14:48; Status DC Potassium Chloride/Dextrose/ Sod Cl 1,000 ml @ 80 mls/hr CONT PRN IV SEE I/O RECORD; Start 09/11/19 at 09:00; Stop 09/11/19 at 09:15; Status DC Potassium Chloride/Dextrose/ Sod Cl 1,000 ml @ 80 mls/hr [id number] IV Last a dministered on 09/11/19at 23:28; Start 09/11/19 at 09:15; Stop 09/12/19 at 08:57; Status DC Enoxaparin Sodium (Lovenox 40mg Syringe) 40 mg BID SQ Last administered on 09/13/19at 08:13; Start 09/11/19 at 21:00 Phenol (Chloraseptic) 1 spray PRN Q2HR PRN PO SORE THROAT; Start 09/12/19 at 06:15 Potassium Chloride/Water 100 ml @ 100 mls/hr Q1H IV Last administered on 09/12/19at 09:59; Start 09/12/19 at 09:30; Stop 09/12/19 at 10:41; Status DC Amino Acids/ Electrolytes/ Dextrose 1,000 ml @ 80 mls/hr [id number] IV Last administered on 09/12/19at 22:32; Start 09/12/19 at 09:30 Labetalol HCl (Normodyne Iv Push) 10 mg PRN Q2HR PRN IVP HYPERTENSION; Start 09/12/19 at 10:45 Acetaminophen (Tylenol) 500 mg PRN Q6HRS PRN PO MILD PAIN/TEMP Last administered on 09/13/19at 08:13; Start 09/12/19 at 14:30 Aspirin (Children'S Aspirin) 81 mg DAILY PO ; Start 09/12/19 at 14:30; Stop 09/12/19 at 15:12; Status DC Non-Formulary Medication (Triamterene ) 25 mg QHS PO ; Start 09/12/19 at 21:00; Status UNV Verapamil HCl (Calan Sr) 240 mg QHS PO Last administered on 09/12/19at 22:32; Start 09/12/19 at 21:00 Aspirin (Children'S Aspirin) 81 mg HS PO Last administered on 09/12/19at 21:35; Start 09/12/19 at 21:00 Pantoprazole Sodium (Protonix) 40 mg DAILYAC PO ; Start 09/14/19 at 07:30 Polyethylene Glycol (miraLAX PACKET) 17 gm PRN DAILY PRN PO CONSTIPATION; Start 09/13/19 at 10:00 Active Scripts Active Reported Acetaminophen 500 Mg Tablet 1 Tab PO PRN Q6HRS PRN 15 Days Aspirin 81 Mg Tab.chew 1 Tab PO DAILY Triamterene 50 Mg Capsule 25 Mg PO QHS Verapamil Er (Verapamil Hcl) 240 Mg Cap24h.pel 1 Cap PO HS Travatan Z (Travoprost) 5 Ml Drops 5 Ml OU QHS Celebrex (Celecoxib) 200 Mg Capsule 1 Cap PO DAILY Vitals/I & O Vital Sign - Last 24 Hours 09/12/19 09/12/19 09/12/19 09/12/19 11:00 15:00 19:00 19:45 Temp 98.8 99.6 98.0 98.8 99.6 98.0 Pulse 76 77 90 Resp 18 18 18 B/P (MAP) 145/69 (94) 131/49 (76) 133/42 (72) Pulse Ox 98 97 94 O2 Delivery Room Air Room Air Room Air Room Air 09/12/19 09/12/19 09/12/19 09/12/19 21:38 22:32 22:32 23:00 Temp 97.9 97.9 Pulse 90 68 Resp 18 B/P (MAP) 133/42 118/61 (80) Pulse Ox 95 O2 Delivery Room Air Room Air Room Air 09/13/19 09/13/19 09/13/19 03:00 07:00 08:00 Temp 98.5 98.6 98.5 98.6 Pulse 54 67 Resp 18 18 B/P (MAP) 134/54 (80) 151/64 (93) Pulse Ox 96 96 O2 Delivery Room Air Room Air Room Air Intake and Output 09/12/19 09/12/19 09/13/19 15:00 23:00 07:00 Intake Total 120 ml 120 ml 120 ml Balance 120 ml 120 ml 120 ml Hemodynamically unstable?: No Is patient in severe pain?: No Is NPO status required?: No FRANSISCO ARRIETA MD Sep 13, 2019 10:29
[2019-09-13] MEDS: AA 4.25 %/CALCIUM/LYTES/D5W 1,000 ML IV SCH ×2 (10:45→23:45)
[2019-09-13 11:00] VITALS: BP 155/70
[2019-09-13] MEDS: CELECOXIB 100 MG CAPSULE. PO SCH (11:49)
--- NOTE | 2019-09-13 13:33 | NUR ---
SW following. Discussed with RN, pt refusing services upon discharge. Pt is a high risk readmit due to declining services. Possible discharge home today with self care, if can tolerate diet.
[2019-09-13] MEDS ORDERED: METHYLNALTREXONE 12 MG/0.6 ML VIAL. SQ ONE (14:00)
--- NOTE | 2019-09-13 14:05 | PDOC ---
SURGICAL PROGRESS NOTE Subjective pt seen in room she is sitting up at the side of the bed took fulls for lunch Vital Signs Vital Signs Date Time Temp Pulse Resp B/P (MAP) Pulse Ox O2 Delivery O2 Flow Rate FiO2 09/13/19 11:00 97.9 64 18 155/70 (98) 96 Room Air 97.9 I&O Intake and Output 09/13/19 06:59 Intake Total 360 ml Balance 360 ml Intake Oral 360 ml # Voids 3 # Bowel Movements 1 PATIENT HAS A GARCIA: No General: Alert, No acute distress Abdomen: Soft Labs Laboratory Tests Test 09/12/19 04:30 09/13/19 03:35 White Blood Count 10.1 x10^3/uL (4.0-11.0) Red Blood Count 3.99 x10^6/uL (3.50-5.40) Hemoglobin 12.3 g/dL (12.0-15.5) Hematocrit 36.0 % (36.0-47.0) Mean Corpuscular Volume 90 fL (79-100) Mean Corpuscular Hemoglobin 31 pg (25-35) Mean Corpuscular Hemoglobin Concent 34 g/dL (31-37) Red Cell Distribution Width 13.5 % (11.5-14.5) Platelet Count 203 x10^3/uL (140-400) Neutrophils (%) (Auto) 77 % (31-73) Lymphocytes (%) (Auto) 16 % (24-48) Monocytes (%) (Auto) 7 % (0-9) Eosinophils (%) (Auto) 1 % (0-3) Basophils (%) (Auto) 1 % (0-3) Neutrophils # (Auto) 7.7 x10^3/uL (1.8-7.7) Lymphocytes # (Auto) 1.6 x10^3/uL (1.0-4.8) Monocytes # (Auto) 0.7 x10^3/uL (0.0-1.1) Eosinophils # (Auto) 0.1 x10^3/uL (0.0-0.7) Basophils # (Auto) 0.1 x10^3/uL (0.0-0.2) Sodium Level 142 mmol/L (136-145) Potassium Level 3.1 mmol/L (3.5-5.1) 3.0 mmol/L (3.5-5.1) Chloride Level 106 mmol/L (98-107) Carbon Dioxide Level 27 mmol/L (21-32) Anion Gap 9 (6-14) Blood Urea Nitrogen 4 mg/dL (7-20) Creatinine 0.6 mg/dL (0.6-1.0) Estimated GFR (Cockcroft-Gault) 96.4 Glucose Level 112 mg/dL (70-99) Calcium Level 8.5 mg/dL (8.5-10.1) 8.5 mg/dL (8.5-10.1) Magnesium Level 1.7 mg/dL (1.8-2.4) Laboratory Tests Test 09/13/19 03:35 Potassium Level 3.0 mmol/L (3.5-5.1) Calcium Level 8.5 mg/dL (8.5-10.1) Magnesium Level 1.7 mg/dL (1.8-2.4) Problem List Problems Medical Problems: (1) SBO (small bowel obstruction) Status: Acute Assessment/Plan SBO, resolving continue to increase activity GREY GARCIA MD Sep 13, 2019 14:05
--- NOTE | 2019-09-13 14:58 | RAD ---
KUB compared to similar exam dated September 12, 2019 for small bowel obstruction. FINDINGS: There is redemonstration of contrast throughout the colon which is decompressed. There is new air in the rectosigmoid. There has been mild interval transit of contrast. There are a few gas-filled loops of small bowel in the epigastric region, and the stomach is partially fluid distended with air. Appearance is suggestive of adynamic ileus or resolving small bowel obstruction. IMPRESSION: 1. Partial transit of contrast into the colon, with a few new aerated loops of small bowel proximally. Findings suggest resolving small bowel obstruction and/or adynamic ileus. Electronically signed by: En Nails MD (09/13/2019 2:55 PM) [facility]
[2019-09-13 15:00] VITALS: BP 132/49
[2019-09-13 19:00] VITALS: BP 151/74
[2019-09-13] MEDS ORDERED: DICLOFENAC SODIUM 1% TOPICAL GEL 100GM TUBE. TP PRN (19:15)
[2019-09-13] MEDS ORDERED: MAGNESIUM SULFATE 2GM 50 ML IV ONE (19:45)
[2019-09-13] MEDS: VERAPAMIL SR 120 MG TABLET.ER. PO SCH (21:08)
[2019-09-13] MEDS: ASPIRIN CHEWABLE 81 MG TABLET. PO SCH (21:08)
[2019-09-13] MEDS: LATANOPROST 0.005% OPHTH SOLUTION 2.5ML BOTTLE. OU SCH (21:09)
[2019-09-13 23:00] VITALS: BP 145/67
[2019-09-14 03:00] VITALS: BP 114/63
[2019-09-14] MEDS: ACETAMINOPHEN 500 MG TABLET PO PRN (06:08)
[2019-09-14] MEDS: PANTOPRAZOLE 40 MG TABLET.DR. PO SCH (06:08)
[2019-09-14 07:00] VITALS: BP 143/57
[2019-09-14] MEDS: CELECOXIB 100 MG CAPSULE. PO SCH (09:04)
[2019-09-14] MEDS: ENOXAPARIN 40 MG/0.4 ML SYRINGE. SQ SCH ×2 (09:14→21:43)
--- NOTE | 2019-09-14 09:31 | PDOC ---
Subjective: Subjective: No n/v, no abd pain. Stooled yesterday ("normal" and "soft") after Relistor. Tolerating full liquids but doesn't like the cream of wheat here. Celebrex and heating pad might be helping arthritis pain in neck. Asks if she's going home today - says someone mentioned that and she'd like to get out of here but family doesn't want her to leave too soon. Objective: Objective: Hasn't taken morphine/narcs since 09/12. Vital Signs: Vital Signs Date Time Temp Pulse Resp B/P (MAP) Pulse Ox O2 Delivery O2 Flow Rate FiO2 09/14/19 07:40 Room Air 09/14/19 07:00 97.8 64 16 143/57 (03) 93 97.8 Imaging: KUB 09/13 IMPRESSION: 1. Partial transit of contrast into the colon, with a few new aerated loops of small bowel proximally. Findings suggest resolving small bowel obstruction and/or adynamic ileus. PE: GEN: NAD, present HEENT: heating pad around neck LUNGS: CTAB HEART: RRR ABD: soft, non-tender, a few quiet gurgles NEURO/PSYCH: A & O 3, quieter than previous days A/P: Partial SBO - resolving -- Reviewed w/ Dr. Segundo - try GI soft. Hemodynamically unstable?: No Is patient in severe pain?: No Is NPO status required?: No LUCRECIA CORDON Sep 14, 2019 09:31
--- NOTE | 2019-09-14 10:25 | NUR ---
SW following. Discussed with RN, pt has advanced to GI soft diet. Pt has refused SNU and HH upon discharge. SW will continue to follow should any discharge needs arise.
--- NOTE | 2019-09-14 10:43 | PDOC ---
PROGRESS NOTES Chief Complaint Chief Complaint impression PArtial SBO resolving findings suggest resolving small bowel obstruction and/or adynamic ileus. Obesity Hypokalemia Poor surgical candidate History of Present Illness History of Present Illness PLAN: MIght be able donna soft diet Add prn labetolol for high BP cont procalamine for now IF diet starts, PO kcl dw RN and fam at bedside SNU recommened by pT, patient was agreeable Vitals Vitals Vital Signs Date Time Temp Pulse Resp B/P (MAP) Pulse Ox O2 Delivery O2 Flow Rate FiO2 09/14/19 07:40 Room Air 09/14/19 07:00 97.8 64 16 143/57 (85) 93 97.8 Physical Exam General: Alert, Oriented X3, Cooperative, No acute distress Heart: Regular rate, Normal S1, Normal S2 Lungs: Clear Abdomen: Soft, No masses Extremities: No clubbing, No cyanosis Skin: No rashes, No breakdown Labs LABS KUB compared to similar exam dated September 12, 2019 for small bowel obstruction. FINDINGS: There is redemonstration of contrast throughout the colon which is decompressed. There is new air in the rectosigmoid. There has been mild interval transit of contrast. There are a few gas-filled loops of small bowel in the epigastric region, and the stomach is partially fluid distended with air. Appearance is suggestive of adynamic ileus or resolving small bowel obstruction. IMPRESSION: 1. Partial transit of contrast into the colon, with a few new aerated loops of small bowel proximally. Findings suggest resolving small bowel obstruction and/or adynamic ileus. Electronically signed by: En Archer MD (09/13/2019 2:55 PM) [place] [id number] DICTATED and SIGNED BY: EN ARCHER MD DATE: 09/13/19 8392 Assessment and Plan Assessmemt and Plan Problems Medical Problems: (1) SBO (small bowel obstruction) Status: Acute Comment Review of Relevant I have reviewed the following items missael (where applicable) has been applied. Labs Laboratory Tests Test 09/13/19 03:35 Potassium Level 3.0 mmol/L (3.5-5.1) Calcium Level 8.5 mg/dL (8.5-10.1) Magnesium Level 1.7 mg/dL (1.8-2.4) Medications Current Medications Fentanyl Citrate (Fentanyl 2ml Vial) 25 mcg PRN Q15MIN PRN IV PAIN GREATER THAN 3/10 Last administered on 09/06/19at 16:36; Start 09/06/19 at 14:30; Stop 09/06/19 at 21:00; Status DC Famotidine (Pepcid Vial) 20 mg 1X ONCE IVP Last administered on 09/06/19at 15:00; Start 09/06/19 at 14:30; Stop 09/06/19 at 14:35; Status DC Ondansetron HCl (Zofran) 4 mg 1X ONCE IVP Last administered on 09/06/19at 14:59; Start 09/06/19 at 14:30; Stop 09/06/19 at 14:35; Status DC Sodium Chloride 1,000 ml @ 1,000 mls/hr 1X ONCE IV Last administered on 09/06/19at 14:33; Start 09/06/19 at 14:30; Stop 09/06/19 at 15:29; Status DC Dicyclomine HCl (Bentyl) 20 mg 1X ONCE PO Last administered on 09/06/19at 14:58; Start 09/06/19 at 14:30; Stop 09/06/19 at 14:35; Status DC Iohexol (Omnipaque 300 Mg/ml) 60 ml 1X ONCE IV Last administered on 09/06/19at 15:00; Start 09/06/19 at 15:00; Stop 09/06/19 at 15:01; Status DC Sodium Chloride 1,000 ml @ 100 mls/hr Q10H IV Last administered on 09/10/19at 06:58; Start 09/06/19 at 17:05; Stop 09/10/19 at 15:35; Status DC Ondansetron HCl (Zofran) 4 mg PRN Q4HRS PRN IV NAUSEA/VOMITING, 1st CHOICE Last administered on 09/10/19at 08:52; Start 09/06/19 at 17:15 Acetaminophen (Tylenol) 650 mg PRN Q4HRS PRN PO TEMP OVER 100.4F OR MILD PAIN Last administered on 09/09/19at 05:03; Start 09/06/19 at 17:15; Stop 09/12/19 at 14:37; Status DC Acetaminophen (Tylenol Supp) 650 mg PRN Q4HRS PRN [place] TEMP OVER 100.4F OR MILD PAIN; Start 09/06/19 at 17:15 Docusate Sodium (Colace) 100 mg PRN BID PRN PO CONSTIPATION Last administered on 09/07/19at 21:25; Start 09/06/19 at 17:15 Albuterol Sulfate (Ventolin Neb Soln) 2.5 mg PRN Q4HRS PRN NEB SHORTNESS OF BREATH; Start 09/06/19 at 17:15 Guaifenesin (Robitussin) 200 mg PRN Q4HRS PRN PO COUGH; Start 09/06/19 at 17:15 Lorazepam (Ativan Inj) 1 mg PRN Q4HRS PRN IV ANXIETY / AGITATION Last administered on 09/09/19at 17:31; Start 09/06/19 at 17:15 Ondansetron HCl (Zofran) 4 mg PRN Q8HRS PRN IV NAUSEA/VOMITING; Start 09/06/19 at 18:15; Stop 09/07/19 at 18:14; Status UNV Morphine Sulfate (Morphine Sulfate) 2 mg PRN Q2HR PRN IV PAIN; Start 09/06/19 at 18:15; Stop 09/06/19 at 18:45; Status DC Sodium Chloride 1,000 ml @ 100 mls/hr 1X ONCE IV ; Start 09/06/19 at 18:15; Stop 09/07/19 at 04:14; Status UNV Prochlorperazine Edisylate (Compazine) 10 mg PRN Q8HRS PRN IV NAUSEA, 2nd CHOICE; Start 09/06/19 at 18:15 Morphine Sulfate (Morphine Sulfate) 2 mg PRN Q2HR PRN IV PAIN Last administered on 09/12/19at 21:38; Start 09/06/19 at 18:45 Famotidine (Pepcid Vial) 20 mg BID IVP Last administered on 09/13/19at 08:12; Start 09/06/19 at 21:00; Stop 09/13/19 at 09:57; Status DC Latanoprost (Xalatan) 1 drop QHS OU Last administered on 09/13/19at 21:09; Start 09/07/19 at 21:00 Iohexol (Omnipaque 300 Mg/ml) 400 ml 1X ONCE IJ Last administered on 09/10/19at 12:17; Start 09/10/19 at 11:15; Stop 09/10/19 at 11:16; Status DC Info (CONTRAST GIVEN -- Rx MONITORING) 1 each PRN DAILY PRN MC SEE COMMENTS; Start 09/10/19 at 11:15; Stop 09/12/19 at 11:14; Status DC Sodium Chloride 1,000 ml @ 75 mls/hr 1X ONCE IV Last administered on 09/10/19at 17:22; Start 09/10/19 at 15:45; Stop 09/11/19 at 05:04; Status DC Enoxaparin Sodium (Lovenox 40mg Syringe) 40 mg Q24H SQ Last administered on 09/11/19at 10:16; Start 09/11/19 at 09:00; Stop 09/11/19 at 14:48; Status DC Potassium Chloride/Dextrose/ Sod Cl 1,000 ml @ 80 mls/hr CONT PRN IV SEE I/O RECORD; Start 09/11/19 at 09:00; Stop 09/11/19 at 09:15; Status DC Potassium Chloride/Dextrose/ Sod Cl 1,000 ml @ 80 mls/hr [id number] IV Last administered on 09/11/19at 23:28; Start 09/11/19 at 09:15; Stop 09/12/19 at 08:57; Status DC Enoxaparin Sodium (Lovenox 40mg Syringe) 40 mg BID SQ Last administered on 09/14/19at 09:14; Start 09/11/19 at 21:00 Phenol (Chloraseptic) 1 spray PRN Q2HR PRN PO SORE THROAT; Start 09/12/19 at 06:15 Potassium Chloride/Water 100 ml @ 100 mls/hr Q1H IV Last administered on 09/12/19at 09:59; Start 09/12/19 at 09:30; Stop 09/12/19 at 10:41; Status DC Amino Acids/ Electrolytes/ Dextrose 1,000 ml @ 80 mls/hr [id number] IV Last administered on 09/13/19at 23:45; Start 09/12/19 at 09:30 Labetalol HCl (Normodyne Iv Push) 10 mg PRN Q2HR PRN IVP HYPERTENSION; Start 09/12/19 at 10:45 Acetaminophen (Tylenol) 500 mg PRN Q6HRS PRN PO MILD PAIN/TEMP Last administered on 09/14/19at 06:08; Start 09/12/19 at 14:30 Aspirin (Children'S Aspirin) 81 mg DAILY PO ; Start 09/12/19 at 14:30; Stop 09/12/19 at 15:12; Status DC Non-Formulary Medication (Triamterene ) 25 mg QHS PO ; Start 09/12/19 at 21:00; Status UNV Verapamil HCl (Calan Sr) 240 mg QHS PO Last administered on 09/13/19at 21:08; Start 09/12/19 at 21:00 Aspirin (Children'S Aspirin) 81 mg HS PO Last administered on 09/13/19at 21:08; Start 09/12/19 at 21:00 Pantoprazole Sodium (Protonix) 40 mg DAILYAC PO Last administered on 09/14/19at 06:08; Start 09/14/19 at 07:30 Polyethylene Glycol (miraLAX PACKET) 17 gm PRN DAILY PRN PO CONSTIPATION; Start 09/13/19 at 10:00 Celecoxib (CeleBREX) 200 mg DAILY PO Last administered on 09/14/19at 09:04; Start 09/13/19 at 12:00 Methylnaltrexone [place] (Relistor) 12 mg 1X ONCE SQ Last administered on 09/13at 14:59; Start 09/13/19 at 14:00; Stop 09/13/19 at 14:01; Status DC Diclofenac Sodium (Voltaren) 1 anai PRN BID PRN TP pain Last administered on 09/13/19at 21:07; Start 09/13/19 at 19:15 Magnesium Sulfate 50 ml @ 25 mls/hr 1X ONCE IV Last administered on 09/13/19at 21:09; Start 09/13/19 at 19:45; Stop 09/13/19 at 21:44; Status DC Active Scripts Active Reported Acetaminophen 500 Mg Tablet 1 Tab PO PRN Q6HRS PRN 15 Days Aspirin 81 Mg Tab.chew 1 Tab PO DAILY Triamterene 50 Mg Capsule 25 Mg PO QHS Verapamil Er (Verapamil Hcl) 240 Mg Cap24h.pel 1 Cap PO HS Travatan Z (Travoprost) 5 Ml Drops 5 Ml OU QHS Celebrex (Celecoxib) 200 Mg Capsule 1 Cap PO DAILY Vitals/I & O Vital Sign - Last 24 Hours 1/29/20 1/29/20 1/29/20 1/29/20 11:00 15:00 19:00 20:00 Temp 97.9 97.7 98.4 97.9 97.7 98.4 Pulse 64 78 85 Resp 18 18 18 B/P (MAP) 155/70 (98) 132/49 (76) 151/74 (99) Pulse Ox 96 96 95 O2 Delivery Room Air Room Air Room Air Room Air 09/13/19 09/13/19 09/14/19 09/14/19 21:08 23:00 03:00 07:00 Temp 98.4 98.4 97.8 98.4 98.4 97.8 Pulse 85 74 64 64 Resp 18 18 16 B/P (MAP) 151/74 145/67 (93) 114/63 (80) 143/57 (85) Pulse Ox 96 96 93 O2 Delivery Room Air Room Air Room Air 09/14/19 07:40 O2 Delivery Room Air Intake and Output 09/13/19 09/13/19 09/14/19 15:00 23:00 07:00 Intake Total 550 ml 320 ml 1230 ml Balance 550 ml 320 ml 1230 ml Hemodynamically unstable?: No Is patient in severe pain?: No Is NPO status required?: No FRANSISCO ARRIETA MD Sep 14, 2019 10:43
[2019-09-14] MEDS: AA 4.25 %/CALCIUM/LYTES/D5W 1,000 ML IV SCH (10:55)
[2019-09-14 11:00] VITALS: BP 142/51
--- NOTE | 2019-09-14 11:29 | PDOC ---
GALDINO INFANTE AGED OR DISABLED CARER 09/14/19 1129: SURGICAL PROGRESS NOTE Subjective stool yesterday, + flatus tolerating full liquids no abdominal pain Vital Signs Vital Signs Date Time Temp Pulse Resp B/P (MAP) Pulse Ox O2 Delivery O2 Flow Rate FiO2 09/14/19 07:40 Room Air 09/14/19 07:00 97.8 64 16 143/57 (85) 93 97.8 I&O Intake and Output 09/14/19 07:00 Intake Total 2100 ml Balance 2100 ml Intake Oral 1050 ml IV Total 1050 ml # Voids 2 General: Alert, Oriented X3, Cooperative Abdomen: Soft, No tenderness Labs Laboratory Tests Test 09/13/19 03:35 Potassium Level 3.0 mmol/L (3.5-5.1) Calcium Level 8.5 mg/dL (8.5-10.1) Magnesium Level 1.7 mg/dL (1.8-2.4) Problem List Problems Medical Problems: (1) SBO (small bowel obstruction) Status: Acute Assessment/Plan improving advance diet GREY WIGGINS MD 09/14/19 1635: SURGICAL PROGRESS NOTE Assessment/Plan as above no new surgical recs GALDINO INFANTE APRN Sep 14, 2019 11:29 GREY WIGGINS MD Sep 14, 2019 16:35
[2019-09-14] MEDS ORDERED: POTASSIUM CHLORIDE 20 MEQ TABLET.ER. PO ONE (14:00)
[2019-09-14 15:00] VITALS: BP 145/56
[2019-09-14 19:00] VITALS: BP 126/52
[2019-09-14] MEDS: VERAPAMIL SR 120 MG TABLET.ER. PO SCH (21:41)
[2019-09-14] MEDS: DOCUSATE SODIUM 100 MG CAPSULE. PO PRN (21:41)
[2019-09-14] MEDS: ASPIRIN CHEWABLE 81 MG TABLET. PO SCH (21:42)
[2019-09-14] MEDS: LATANOPROST 0.005% OPHTH SOLUTION 2.5ML BOTTLE. OU SCH (21:50)
[2019-09-14 22:03] VITALS: BP 127/57
[2019-09-15] MEDS: AA 4.25 %/CALCIUM/LYTES/D5W 1,000 ML IV SCH
--- NOTE | 2019-09-15 02:28 | NUR ---
Patient tolerated GI soft diet, up ad rachel in the room, pt refused assistance when getting out of bed, denies pain.
[2019-09-15 03:00] VITALS: BP 110/43
[2019-09-15] MEDS ORDERED: TRIA1TAB2 PO (04:22)
[2019-09-15 04:24] LABS: BASO % 0 % (0-3); EOS # 0.2 x10^3/uL (0.0-0.7); EOS % 2 % (0-3); HEMATOCRIT 34.9 % (36.0-47.0); HEMOGLOBIN 11.7 g/dL (12.0-15.5); LYMPH # 2.5 x10^3/uL (1.0-4.8); LYMPH % 26 % (24-48); MEAN CORPUSCULAR HEMOGLOBIN 31 pg (25-35); MEAN CORPUSCULAR HGB CONC 34 g/dL (31-37); MEAN CORPUSCULAR VOLUME 92 fL (79-100); MONO # 0.7 x10^3/uL (0.0-1.1); MONO % 7 % (0-9); NEUT # 6.3 x10^3/uL (1.8-7.7); NEUT % 65 % (31-73); PLATELET COUNT 200 x10^3/uL (140-400); RED CELL DISTRIBUTION WIDTH 13.8 % (11.5-14.5); WHITE BLOOD COUNT 9.7 x10^3/uL (4.0-11.0)
[2019-09-15 04:37] LABS: ALBUMIN 2.8 g/dL (3.4-5.0); ALBUMIN/GLOBULIN RATIO 0.9 (1.0-1.7); CALCIUM 8.7 mg/dL (8.5-10.1); CREATININE 0.7 mg/dL (0.6-1.0); GFR 80.7; POTASSIUM 3.6 mmol/L (3.5-5.1); TOTAL BILIRUBIN 0.5 mg/dL (0.2-1.0)
[2019-09-15] MEDS ORDERED: TRIAMTERENE/HCTZ 37.5/25MG TABLET. PO SCH (05:00)
[2019-09-15] MEDS: PANTOPRAZOLE 40 MG TABLET.DR. PO SCH (06:20)
[2019-09-15 07:43] VITALS: BP 130/47
[2019-09-15] MEDS ORDERED: POTASSIUM CHLORIDE 20 MEQ TABLET.ER. PO SCH (08:00)
[2019-09-15] MEDS: ENOXAPARIN 40 MG/0.4 ML SYRINGE. SQ SCH (08:48)
[2019-09-15] MEDS: CELECOXIB 100 MG CAPSULE. PO SCH (08:48)
--- NOTE | 2019-09-15 09:18 | PDOC ---
PROGRESS NOTES Chief Complaint Chief Complaint discharge dx PArtial SBO resolving findings suggest resolving small bowel obstruction and/or adynamic ileus. Obesity Hypokalemia Poor surgical candidate History of Present Illness History of Present Illness PLAN: soft diet Add prn labetolol for high BP PO kcl dw RN and elver at bedside SNU recommened by pT, patient was agreeable d/c planning 32 min Vitals Vitals Vital Signs Date Time Temp Pulse Resp B/P (MAP) Pulse Ox O2 Delivery O2 Flow Rate FiO2 09/15/19 08:00 Room Air 09/15/19 07:43 98.6 63 18 130/47 (74) 95 98.6 Physical Exam General: Alert, Oriented X3, Cooperative, No acute distress Heart: Regular rate, Normal S1, Normal S2 Lungs: Clear Abdomen: Soft, No tenderness Extremities: No clubbing, No cyanosis Skin: No rashes, No breakdown Labs LABS Laboratory Tests Test 09/15/19 03:55 White Blood Count 9.7 x10^3/uL (4.0-11.0) Red Blood Count 3.80 x10^6/uL (3.50-5.40) Hemoglobin 11.7 g/dL (12.0-15.5) Hematocrit 34.9 % (36.0-47.0) Mean Corpuscular Volume 92 fL (79-100) Mean Corpuscular Hemoglobin 31 pg (25-35) Mean Corpuscular Hemoglobin Concent 34 g/dL (31-37) Red Cell Distribution Width 13.8 % (11.5-14.5) Platelet Count 200 x10^3/uL (140-400) Neutrophils (%) (Auto) 65 % (31-73) Lymphocytes (%) (Auto) 26 % (24-48) Monocytes (%) (Auto) 7 % (0-9) Eosinophils (%) (Auto) 2 % (0-3) Basophils (%) (Auto) 0 % (0-3) Neutrophils # (Auto) 6.3 x10^3/uL (1.8-7.7) Lymphocytes # (Auto) 2.5 x10^3/uL (1.0-4.8) Monocytes # (Auto) 0.7 x10^3/uL (0.0-1.1) Eosinophils # (Auto) 0.2 x10^3/uL (0.0-0.7) Basophils # (Auto) 0.0 x10^3/uL (0.0-0.2) Sodium Level 145 mmol/L (136-145) Potassium Level 3.6 mmol/L (3.5-5.1) Chloride Level 107 mmol/L (98-107) Carbon Dioxide Level 29 mmol/L (21-32) Anion Gap 9 (6-14) Blood Urea Nitrogen 13 mg/dL (7-20) Creatinine 0.7 mg/dL (0.6-1.0) Estimated GFR (Cockcroft-Gault) 80.7 BUN/Creatinine Ratio 19 (6-20) Glucose Level 93 mg/dL (70-99) Calcium Level 8.7 mg/dL (8.5-10.1) Total Bilirubin 0.5 mg/dL (0.2-1.0) Aspartate Amino Transf (AST/SGOT) 20 U/L (15-37) Alanine Aminotransferase (ALT/SGPT) 17 U/L (14-59) Alkaline Phosphatase 45 U/L (46-116) Total Protein 6.0 g/dL (6.4-8.2) Albumin 2.8 g/dL (3.4-5.0) Albumin/Globulin Ratio 0.9 (1.0-1.7) Assessment and Plan Assessmemt and Plan Problems Medical Problems: (1) SBO (small bowel obstruction) Status: Acute Comment Review of Relevant I have reviewed the following items missael (where applicable) has been applied. Labs Laboratory Tests Test 09/15/19 03:55 White Blood Count 9.7 x10^3/uL (4.0-11.0) Red Blood Count 3.80 x10^6/uL (3.50-5.40) Hemoglobin 11.7 g/dL (12.0-15.5) Hematocrit 34.9 % (36.0-47.0) Mean Corpuscular Volume 92 fL (79-100) Mean Corpuscular Hemoglobin 31 pg (25-35) Mean Corpuscular Hemoglobin Concent 34 g/dL (31-37) Red Cell Distribution Width 13.8 % (11.5-14.5) Platelet Count 200 x10^3/uL (140-400) Neutrophils (%) (Auto) 65 % (31-73) Lymphocytes (%) (Auto) 26 % (24-48) Monocytes (%) (Auto) 7 % (0-9) Eosinophils (%) (Auto) 2 % (0-3) Basophils (%) (Auto) 0 % (0-3) Neutrophils # (Auto) 6.3 x10^3/uL (1.8-7.7) Lymphocytes # (Auto) 2.5 x10^3/uL (1.0-4.8) Monocytes # (Auto) 0.7 x10^3/uL (0.0-1.1) Eosinophils # (Auto) 0.2 x10^3/uL (0.0-0.7) Basophils # (Auto) 0.0 x10^3/uL (0.0-0.2) Sodium Level 145 mmol/L (136-145) Potassium Level 3.6 mmol/L (3.5-5.1) Chloride Level 107 mmol/L (98-107) Carbon Dioxide Level 29 mmol/L (21-32) Anion Gap 9 (6-14) Blood Urea Nitrogen 13 mg/dL (7-20) Creatinine 0.7 mg/dL (0.6-1.0) Estimated GFR (Cockcroft-Gault) 80.7 BUN/Creatinine Ratio 19 (6-20) Glucose Level 93 mg/dL (70-99) Calcium Level 8.7 mg/dL (8.5-10.1) Total Bilirubin 0.5 mg/dL (0.2-1.0) Aspartate Amino Transf (AST/SGOT) 20 U/L (15-37) Alanine Aminotransferase (ALT/SGPT) 17 U/L (14-59) Alkaline Phosphatase 45 U/L (46-116) Total Protein 6.0 g/dL (6.4-8.2) Albumin 2.8 g/dL (3.4-5.0) Albumin/Globulin Ratio 0.9 (1.0-1.7) Laboratory Tests Test 09/15/19 03:55 White Blood Count 9.7 x10^3/uL (4.0-11.0) Red Blood Count 3.80 x10^6/uL (3.50-5.40) Hemoglobin 11.7 g/dL (12.0-15.5) Hematocrit 34.9 % (36.0-47.0) Mean Corpuscular Volume 92 fL (79-100) Mean Corpuscular Hemoglobin 31 pg (25-35) Mean Corpuscular Hemoglobin Concent 34 g/dL (31-37) Red Cell Distribution Width 13.8 % (11.5-14.5) Platelet Count 200 x10^3/uL (140-400) Neutrophils (%) (Auto) 65 % (31-73) Lymphocytes (%) (Auto) 26 % (24-48) Monocytes (%) (Auto) 7 % (0-9) Eosinophils (%) (Auto) 2 % (0-3) Basophils (%) (Auto) 0 % (0-3) Neutrophils # (Auto) 6.3 x10^3/uL (1.8-7.7) Lymphocytes # (Auto) 2.5 x10^3/uL (1.0-4.8) Monocytes # (Auto) 0.7 x10^3/uL (0.0-1.1) Eosinophils # (Auto) 0.2 x10^3/uL (0.0-0.7) Basophils # (Auto) 0.0 x10^3/uL (0.0-0.2) Sodium Level 145 mmol/L (136-145) Potassium Level 3.6 mmol/L (3.5-5.1) Chloride Level 107 mmol/L (98-107) Carbon Dioxide Level 29 mmol/L (21-32) Anion Gap 9 (6-14) Blood Urea Nitrogen 13 mg/dL (7-20) Creatinine 0.7 mg/dL (0.6-1.0) Estimated GFR (Cockcroft-Gault) 80.7 BUN/Creatinine Ratio 19 (6-20) Glucose Level 93 mg/dL (70-99) Calcium Level 8.7 mg/dL (8.5-10.1) Total Bilirubin 0.5 mg/dL (0.2-1.0) Aspartate Amino Transf (AST/SGOT) 20 U/L (15-37) Alanine Aminotransferase (ALT/SGPT) 17 U/L (14-59) Alkaline Phosphatase 45 U/L (46-116) Total Protein 6.0 g/dL (6.4-8.2) Albumin 2.8 g/dL (3.4-5.0) Albumin/Globulin Ratio 0.9 (1.0-1.7) Medications Current Medications Fentanyl Citrate (Fentanyl 2ml Vial) 25 mcg PRN Q15MIN PRN IV PAIN GREATER THAN 3/10 Last administered on 09/06/19at 16:36; Start 09/06/19 at 14:30; Stop 0 at 21:00; Status DC Famotidine (Pepcid Vial) 20 mg 1X ONCE IVP Last administered on 09/06/19at 15:00; Start 09/06/19 at 14:30; Stop 09/06/19 at 14:35; Status DC Ondansetron HCl (Zofran) 4 mg 1X ONCE IVP Last administered on 09/06/19at 14:59; Start 09/06/19 at 14:30; Stop 09/06/19 at 14:35; Status DC Sodium Chloride 1,000 ml @ 1,000 mls/hr 1X ONCE IV Last administered on at 14:33; Start 09/06/19 at 14:30; Stop 09/06/19 at 15:29; Status DC Dicyclomine HCl (Bentyl) 20 mg 1X ONCE PO Last administered on 09/06/19at 14:58; Start 09/06/19 at 14:30; Stop 09/06/19 at 14:35; Status DC Iohexol (Omnipaque 300 Mg/ml) 60 ml 1X ONCE IV Last administered on 09/06/19at 15:00; Start 09/06/19 at 15:00; Stop 09/06/19 at 15:01; Status DC Sodium Chloride 1,000 ml @ 100 mls/hr Q10H IV Last administered on 09/10/19at 06:58; Start 09/06/19 at 17:05; Stop 09/10/19 at 15:35; Status DC Ondansetron HCl (Zofran) 4 mg PRN Q4HRS PRN IV NAUSEA/VOMITING, 1st CHOICE Last administered on 09/10/19at 08:52; Start 09/06/19 at 17:15 Acetaminophen (Tylenol) 650 mg PRN Q4HRS PRN PO TEMP OVER 100.4F OR MILD PAIN Last administered on 09/09/19at 05:03; Start 09/06/19 at 17:15; Stop 09/12/19 at 14:37; Status DC Acetaminophen (Tylenol Supp) 650 mg PRN Q4HRS PRN [place] TEMP OVER 100.4F OR MILD PAIN; Start 09/06/19 at 17:15 Docusate Sodium (Colace) 100 mg PRN BID PRN PO HARD STOOLS Last administered on 09/14/19at 21:41; Start 09/06/19 at 17:15 Albuterol Sulfate (Ventolin Neb Soln) 2.5 mg PRN Q4HRS PRN NEB SHORTNESS OF BREATH; Start 09/06/19 at 17:15 Guaifenesin (Robitussin) 200 mg PRN Q4HRS PRN PO COUGH; Start 09/06/19 at 17:15 Lorazepam (Ativan Inj) 1 mg PRN Q4HRS PRN IV ANXIETY / AGITATION Last administered on 09/09/19at 17:31; Start 09/06/19 at 17:15 Ondansetron HCl (Zofran) 4 mg PRN Q8HRS PRN IV NAUSEA/VOMITING; Start 09/06/19 at 18:15; Stop 09/07/19 at 18:14; Status UNV Morphine Sulfate (Morphine Sulfate) 2 mg PRN Q2HR PRN IV PAIN; Start 09/06/19 at 18:15; Stop 09/06/19 at 18:45; Status DC Sodium Chloride 1,000 ml @ 100 mls/hr 1X ONCE IV ; Start 09/06/19 at 18:15; Stop 09/07/19 at 04:14; Status UNV Prochlorperazine Edisylate (Compazine) 10 mg PRN Q8HRS PRN IV NAUSEA, 2nd CHOICE; Start 09/06/19 at 18:15 Morphine Sulfate (Morphine Sulfate) 2 mg PRN Q2HR PRN IV PAIN Last administered on 09/12/19at 21:38; Start 09/06/19 at 18:45 Famotidine (Pepcid Vial) 20 mg BID IVP Last administered on 09/13/19at 08:12; Start 09/06/19 at 21:00; Stop 09/13/19 at 09:57; Status DC Latanoprost (Xalatan) 1 drop QHS OU Last administered on 09/14/19at 21:50; Start 09/07/19 at 21:00 Iohexol (Omnipaque 300 Mg/ml) 400 ml 1X ONCE IJ Last administered on 09/10/19at 12:17; Start 09/10/19 at 11:15; Stop 09/10/19 at 11:16; Status DC Info (CONTRAST GIVEN -- Rx MONITORING) 1 each PRN DAILY PRN MC SEE COMMENTS; Start 09/10/19 at 11:15; Stop 09/12/19 at 11:14; Status DC Sodium Chloride 1,000 ml @ 75 mls/hr 1X ONCE IV Last administered on 09/10/19at 17:22; Start 09/10/19 at 15:45; Stop 09/11/19 at 05:04; Status DC Enoxaparin Sodium (Lovenox 40mg Syringe) 40 mg Q24H SQ Last administered on 09/11/19at 10:16; Start 09/11/19 at 09:00; Stop 09/11/19 at 14:48; Status DC Potassium Chloride/Dextrose/ Sod Cl 1,000 ml @ 80 mls/hr CONT PRN IV SEE I/O RECORD; Start 09/11/19 at 09:00; Stop 09/11/19 at 09:15; Status DC Potassium Chloride/Dextrose/ Sod Cl 1,000 ml @ 80 mls/hr [id number] IV Last administered on 09/11/19at 23:28; Start 09/11/19 at 09:15; Stop 09/12/19 at 08:57; Status DC Enoxaparin Sodium (Lovenox 40mg Syringe) 40 mg BID SQ Last administered on 09/15/19at 08:48; Start 09/11/19 at 21:00 Phenol (Chloraseptic) 1 spray PRN Q2HR PRN PO SORE THROAT; Start 09/12/19 at 06:15 Potassium Chloride/Water 100 ml @ 100 mls/hr Q1H IV Last administered on 09/12/19at 09:59; Start 09/12/19 at 09:30; Stop 09/12/19 at 10:41; Status DC Amino Acids/ Electrolytes/ Dextrose 1,000 ml @ 80 mls/hr [id number] IV Last administered on 09/14/19at 10:55; Start 09/12/19 at 09:30 Labetalol HCl (Normodyne Iv Push) 10 mg PRN Q2HR PRN IVP HYPERTENSION; Start 09/12/19 at 10:45 Acetaminophen (Tylenol) 500 mg PRN Q6HRS PRN PO MILD PAIN/TEMP Last administered on 09/14/19at 06:08; Start 09/12/19 at 14:30 Aspirin (Children'S Aspirin) 81 mg DAILY PO ; Start 09/12/19 at 14:30; Stop 09/12/19 at 15:12; Status DC Non-Formulary Medication (Triamterene ) 25 mg QHS PO ; Start 09/12/19 at 21:00; Status UNV Verapamil HCl (Calan Sr) 240 mg QHS PO Last administered on 09/14/19at 21:41; Start 09/12/19 at 21:00 Aspirin (Children'S Aspirin) 81 mg HS PO Last administered on 09/14/19at 21:42; Start 09/12/19 at 21:00 Pantoprazole Sodium (Protonix) 40 mg DAILYAC PO Last administered on 09/15/19at 06:20; Start 09/14/19 at 07:30 Polyethylene Glycol (miraLAX PACKET) 17 gm PRN DAILY PRN PO CONSTIPATION; Start 09/13/19 at 10:00 Celecoxib (CeleBREX) 200 mg DAILY PO Last administered on 09/15/19at 08:48; Start 09/13/19 at 12:00 Methylnaltrexone [place] (Relistor) 12 mg 1X ONCE SQ Last administered on 09/13/19at 14:59; Start 09/13/19 at 14:00; Stop 09/13/19 at 14:01; Status DC Diclofenac Sodium (Voltaren) 1 anai PRN BID PRN TP pain Last administered on 09/13/19at 21:07; Start 09/13/19 at 19:15 Magnesium Sulfate 50 ml @ 25 mls/hr 1X ONCE IV Last administered on 09/13/19at 21:09; Start 09/13/19 at 19:45; Stop 09/13/19 at 21:44; Status DC Potassium Chloride (Klor-Con) 40 meq 1X ONCE PO Last administered on 09/14/19at 14:26; Start 09/14/19 at 14:00; Stop 09/14/19 at 14:01; Status DC Potassium Chloride (Klor-Con) 20 meq [id number] PO Last administered on 09/15/19at 08:48; Start 09/15/19 at 08:00 Triamterene/HCTZ (Maxzide 37.5/ 25mg) 0.5 tab HS PO Last administered on 09/15/19at 04:34; Start 09/15/19 at 05:00 Active Scripts Active Reported Maxzide 37.5 Mg-25 Mg Tablet (Triamterene/Hydrochlorothiazid) 1 Each Tablet 0.5 Tab PO HS Acetaminophen 500 Mg Tablet 1 Tab PO PRN Q6HRS PRN 15 Days Aspirin 81 Mg Tab.chew 1 Tab PO DAILY Verapamil Er (Verapamil Hcl) 240 Mg Cap24h.pel 1 Cap PO HS Travatan Z (Travoprost) 5 Ml Drops 5 Ml OU QHS Celebrex (Celecoxib) 200 Mg Capsule 1 Cap PO DAILY Vitals/I & O Vital Sign - Last 24 Hours 09/14/19 09/14/19 09/14/19 09/14/19 11:00 15:00 19:00 20:00 Temp 97.7 97.8 98.6 97.7 97.8 98.6 Pulse 67 63 64 Resp 18 18 18 B/P (MAP) 142/51 (81) 145/56 (85) 126/52 (76) Pulse Ox 94 94 96 O2 Delivery Room Air Room Air Room Air Room Air 09/14/19 09/14/19 09/15/19 09/15/19 21:41 22:03 03:00 07:43 Temp 98.0 98.9 98.6 98.0 98.9 98.6 Pulse 64 68 62 63 Resp 18 18 18 B/P (MAP) 126/52 127/57 (80) 110/43 (65) 130/47 (74) Pulse Ox 96 94 95 O2 Delivery Room Air Room Air Room Air 09/15/19 08:00 O2 Delivery Room Air Intake and Output 09/14/19 09/14/19 09/15/19 15:00 23:00 07:00 Intake Total 460 ml Balance 460 ml Hemodynamically unstable?: No Is patient in severe pain?: No Is NPO status required?: No FRANSISCO ARRIETA MD Sep 15, 2019 09:18
[2019-09-15 11:13] VITALS: BP 112/40
--- NOTE | 2019-09-15 11:31 | PDOC ---
Subjective: Subjective: Eating w/o n/v or abd pain. Stooled this morning. Wants to go home today. Objective: Objective: D/w nurse and social work - plans to DC home w/ family, stooled this morning, tolerating GI soft. Vital Signs: Vital Signs Date Time Temp Pulse Resp B/P (MAP) Pulse Ox O2 Delivery O2 Flow Rate FiO2 09/15/19 11:13 98.1 67 18 112/40 (64) 94 Room Air 98.1 Labs: Laboratory Tests Test 09/15/19 03:55 White Blood Count 9.7 x10^3/uL Red Blood Count 3.80 x10^6/uL Hemoglobin 11.7 g/dL Hematocrit 34.9 % Mean Corpuscular Volume 92 fL Mean Corpuscular Hemoglobin 31 pg Mean Corpuscular Hemoglobin Concent 34 g/dL Red Cell Distribution Width 13.8 % Platelet Count 200 x10^3/uL Neutrophils (%) (Auto) 65 % Lymphocytes (%) (Auto) 26 % Monocytes (%) (Auto) 7 % Eosinophils (%) (Auto) 2 % Basophils (%) (Auto) 0 % Neutrophils # (Auto) 6.3 x10^3/uL Lymphocytes # (Auto) 2.5 x10^3/uL Monocytes # (Auto) 0.7 x10^3/uL Eosinophils # (Auto) 0.2 x10^3/uL Basophils # (Auto) 0.0 x10^3/uL Sodium Level 145 mmol/L Potassium Level 3.6 mmol/L Chloride Level 107 mmol/L Carbon Dioxide Level 29 mmol/L Anion Gap 9 Blood Urea Nitrogen 13 mg/dL Creatinine 0.7 mg/dL Estimated GFR (Cockcroft-Gault) 80.7 BUN/Creatinine Ratio 19 Glucose Level 93 mg/dL Calcium Level 8.7 mg/dL Total Bilirubin 0.5 mg/dL Aspartate Amino Transf (AST/SGOT) 20 U/L Alanine Aminotransferase (ALT/SGPT) 17 U/L Alkaline Phosphatase 45 U/L Total Protein 6.0 g/dL Albumin 2.8 g/dL Albumin/Globulin Ratio 0.9 PE: GEN: NAD, family present LUNGS: CTAB HEART: RRR ABD: bowel sounds more active today, non-tender, soft NEURO/PSYCH: A & O 3 A/P: Partial SBO - resolved -- Improved - tolerating diet and stooling. Okay to DC per GI. Hemodynamically unstable?: No Is patient in severe pain?: No Is NPO status required?: No LUCRECIA CORDON Sep 15, 2019 11:31
--- NOTE | 2019-09-15 12:28 | NUR ---
SW following. Discussed with RN, anticipate pt discharging home today with self care. Pt has declined all services at discharge.
--- NOTE | 2019-09-15 12:58 | PDOC3 ---
Discharge Summary Date of Admission: Sep 06, 2019 Date of Discharge: Sep 15, 2019 Follow-Up: 1-2 days Admitting Diagnosis comment: discharge dx PArtial SBO resolving findings suggest resolving small bowel obstruction and/or adynamic ileus. Obesity Hypokalemia Poor surgical candidate History of Present Illness History of Present Illness PLAN: soft diet Add prn labetolol for high BP PO kcl dw RN and fam at bedside SNU recommened by pT, patient was agreeable d/c planning 32 min Vitals Vitals Vital Signs Date Time Temp Pulse Resp B/P (MAP) Pulse Ox O2 Delivery O2 Flow Rate FiO2 09/15/19 08:00 Room Air 09/15/19 07:43 98.6 63 18 130/47 (74) 95 98.6 Physical Exam General: Alert, Oriented X3, Cooperative, No acute distress Heart: Regular rate, Normal S1, Normal S2 Lungs: Clear Abdomen: Soft, No tenderness Extremities: No clubbing, No cyanosis Skin: No rashes, No breakdown FINAL DIAGNOSIS Problems Medical Problems: (1) SBO (small bowel obstruction) Status: Acute Brief Hospital Course Ms. Quintero is a 79 old [sex] who presented with [partial small bowel obstruction ] CONDITION AT DISCHARGE: Improved Discharge Medications Current Medications Fentanyl Citrate (Fentanyl 2ml Vial) 25 mcg PRN Q15MIN PRN IV PAIN GREATER THAN 3/10 Last administered on 09/06/19at 16:36; Start 09/06/19 at 14:30; Stop 09/06/19 at 21:00; Status DC Famotidine (Pepcid Vial) 20 mg 1X ONCE IVP Last administered on 09/06/19at 15:00; Start 09/06/19 at 14:30; Stop 09/06/19 at 14:35; Status DC Ondansetron HCl (Zofran) 4 mg 1X ONCE IVP Last administered on 09/06/19at 14:59; Start 09/06/19 at 14:30; Stop 09/06/19 at 14:35; Status DC Sodium Chloride 1,000 ml @ 1,000 mls/hr 1X ONCE IV Last administered on 09/06/19at 14:33; Start 09/06/19 at 14:30; Stop 09/06/19 at 15:29; Status DC Dicyclomine HCl (Bentyl) 20 mg 1X ONCE PO Last administered on 09/06/19at 14:58; Start 09/06/19 at 14:30; Stop 09/06/19 at 14:35; Status DC Iohexol (Omnipaque 300 Mg/ml) 60 ml 1X ONCE IV Last administered on 09/06/19at 15:00; Start 09/06/19 at 15:00; Stop 09/06/19 at 15:01; Status DC Sodium Chloride 1,000 ml @ 100 mls/hr Q10H IV Last administered on 09/10/19at 06:58; Start 09/06/19 at 17:05; Stop 09/10/19 at 15:35; Status DC Ondansetron HCl (Zofran) 4 mg PRN Q4HRS PRN IV NAUSEA/VOMITING, 1st CHOICE Last administered on 09/10/19at 08:52; Start 09/06/19 at 17:15 Acetaminophen (Tylenol) 650 mg PRN Q4HRS PRN PO TEMP OVER 100.4F OR MILD PAIN Last administered on 09/09/19at 05:03; Start 09/06/19 at 17:15; Stop 09/12/19 at 14:37; Status DC Acetaminophen (Tylenol Supp) 650 mg PRN Q4HRS PRN AR TEMP OVER 100.4F OR MILD PAIN; Start 09/06/19 at 17:15 Docusate Sodium (Colace) 100 mg PRN BID PRN PO HARD STOOLS Last administered on 09/14/19at 21:41; Start 09/06/19 at 17:15 Albuterol Sulfate (Ventolin Neb Soln) 2.5 mg PRN Q4HRS PRN NEB SHORTNESS OF BREATH; Start 09/06/19 at 17:15 Guaifenesin (Robitussin) 200 mg PRN Q4HRS PRN PO COUGH; Start 09/06/19 at 17:15 Lorazepam (Ativan Inj) 1 mg PRN Q4HRS PRN IV ANXIETY / AGITATION Last admini stered on 09/09/19at 17:31; Start 09/06/19 at 17:15 Ondansetron HCl (Zofran) 4 mg PRN Q8HRS PRN IV NAUSEA/VOMITING; Start 09/06/19 at 18:15; Stop 09/07/19 at 18:14; Status UNV Morphine Sulfate (Morphine Sulfate) 2 mg PRN Q2HR PRN IV PAIN; Start 09/06/19 at 18:15; Stop 09/06/19 at 18:45; Status DC Sodium Chloride 1,000 ml @ 100 mls/hr 1X ONCE IV ; Start 09/06/19 at 18:15; Stop 09/07/19 at 04:14; Status UNV Prochlorperazine Edisylate (Compazine) 10 mg PRN Q8HRS PRN IV NAUSEA, 2nd CHOICE; Start 09/06/19 at 18:15 Morphine Sulfate (Morphine Sulfate) 2 mg PRN Q2HR PRN IV PAIN Last administered on 09/12/19at 21:38; Start 09/06/19 at 18:45 Famotidine (Pepcid Vial) 20 mg BID IVP Last administered on 09/13/19at 08:12; Start 09/06/19 at 21:00; Stop 09/13/19 at 09:57; Status DC Latanoprost (Xalatan) 1 drop QHS OU Last administered on 09/14/19at 21:50; Start 09/07/19 at 21:00 Iohexol (Omnipaque 300 Mg/ml) 400 ml 1X ONCE IJ Last administered on 09/10/19at 12:17; Start 09/10/19 at 11:15; Stop 09/10/19 at 11:16; Status DC Info (CONTRAST GIVEN -- Rx MONITORING) 1 each PRN DAILY PRN MC SEE COMMENTS; Start 09/10/19 at 11:15; Stop 09/12/19 at 11:14; Status DC Sodium Chloride 1,000 ml @ 75 mls/hr 1X ONCE IV Last administered on 09/10/19at 17:22; Start 09/10/19 at 15:45; Stop 09/11/19 at 05:04; Status DC Enoxaparin Sodium (Lovenox 40mg Syringe) 40 mg Q24H SQ Last administered on 09/11/19at 10:16; Start 09/11/19 at 09:00; Stop 09/11/19 at 14:48; Status DC Potassium Chloride/Dextrose/ Sod Cl 1,000 ml @ 80 mls/hr CONT PRN IV SEE I/O RECORD; Start 09/11/19 at 09:00; Stop 09/11/19 at 09:15; Status DC Potassium Chloride/Dextrose/ Sod Cl 1,000 ml @ 80 mls/hr [id number] IV Last administered on 09/11/19at 23:28; Start 09/11/19 at 09:15; Stop 09/12/19 at 08:57; Status DC Enoxaparin Sodium (Lovenox 40mg Syringe) 40 mg BID SQ Last administered on 09/15/19at 08:48; Start 09/11/19 at 21:00 Phenol (Chloraseptic) 1 spray PRN Q2HR PRN PO SORE THROAT; Start 09/12/19 at 06:15 Potassium Chloride/Water 100 ml @ 100 mls/hr Q1H IV Last administered on 09/12/19at 09:59; Start 09/12/19 at 09:30; Stop 09/12/19 at 10:41; Status DC Amino Acids/ Electrolytes/ Dextrose 1,000 ml @ 80 mls/hr [id number] IV Last administered on 09/14/19at 10:55; Start 09/12/19 at 09:30; Stop 09/15/19 at 10:25; Status DC Labetalol HCl (Normodyne Iv Push) 10 mg PRN Q2HR PRN IVP HYPERTENSION; Start 09/12/19 at 10:45 Acetaminophen (Tylenol) 500 mg PRN Q6HRS PRN PO MILD PAIN/TEMP Last administered on 09/14/19at 06:08; Start 09/12/19 at 14:30 Aspirin (Children'S Aspirin) 81 mg DAILY PO ; Start 09/12/19 at 14:30; Stop 09/12/19 at 15:12; Status DC Non-Formulary Medication (Triamterene ) 25 mg QHS PO ; Start 09/12/19 at 21:00; Status UNV Verapamil HCl (Calan Sr) 240 mg QHS PO Last administered on 09/14/19at 21:41; Start 09/12/19 at 21:00 Aspirin (Children'S Aspirin) 81 mg HS PO Last administered on 09/14/19at 21:42; Start 09/12/19 at 21:00 Pantoprazole Sodium (Protonix) 40 mg DAILYAC PO Last administered on 09/15/19at 06:20; Start 09/14/19 at 07:30 Polyethylene Glycol (miraLAX PACKET) 17 gm PRN DAILY PRN PO CONSTIPATION; Start 09/13/19 at 10:00 Celecoxib (CeleBREX) 200 mg DAILY PO Last administered on 09/15/19at 08:48; Start 09/13/19 at 12:00 Methylnaltrexone [place] (Relistor) 12 mg 1X ONCE SQ Last administered on 09/13/19at 14:59; Start 09/13/19 at 14:00; Stop 09/13/19 at 14:01; Status DC Diclofenac Sodium (Voltaren) 1 anai PRN BID PRN TP pain Last administered on 09/13/19at 21:07; Start 09/13/19 at 19:15 Magnesium Sulfate 50 ml @ 25 mls/hr 1X ONCE IV Last administered on 09/13/19at 21:09; Start 09/13/19 at 19:45; Stop 09/13/19 at 21:44; Status DC Potassium Chloride (Klor-Con) 40 meq 1X ONCE PO Last administered on 09/14/19at 14:26; Start 09/14/19 at 14:00; Stop 09/14/19 at 14:01; Status DC Potassium Chloride (Klor-Con) 20 meq DAILYWBKFT PO Last administered on 09/15/19at 08:48; Start 09/15/19 at 08:00 Triamterene/HCTZ (Maxzide 37.5/ 25mg) 0.5 tab HS PO Last administered on 09/15/19at 04:34; Start 09/15/19 at 05:00 Active Scripts Active Reported Maxzide 37.5 Mg-25 Mg Tablet (Triamterene/Hydrochlorothiazid) 1 Each Tablet 0.5 Tab PO HS Acetaminophen 500 Mg Tablet 1 Tab PO PRN Q6HRS PRN 15 Days Aspirin 81 Mg Tab.chew 1 Tab PO DAILY Verapamil Er (Verapamil Hcl) 240 Mg Cap24h.pel 1 Cap PO HS Travatan Z (Travoprost) 5 Ml Drops 5 Ml OU QHS Celebrex (Celecoxib) 200 Mg Capsule 1 Cap PO DAILY Vital Signs Vital Signs Date Time Temp Pulse Resp B/P (MAP) Pulse Ox O2 Delivery O2 Flow Rate FiO2 09/15/19 11:13 98.1 67 18 112/40 (64) 94 Room Air 98.1 Labs Laboratory Tests Test 09/15/19 03:55 White Blood Count 9.7 x10^3/uL (4.0-11.0) Red Blood Count 3.80 x10^6/uL (3.50-5.40) Hemoglobin 11.7 g/dL (12.0-15.5) Hematocrit 34.9 % (36.0-47.0) Mean Corpuscular Volume 92 fL (79-100) Mean Corpuscular Hemoglobin 31 pg (25-35) Mean Corpuscular Hemoglobin Concent 34 g/dL (31-37) Red Cell Distribution Width 13.8 % (11.5-14.5) Platelet Count 200 x10^3/uL (140-400) Neutrophils (%) (Auto) 65 % (31-73) Lymphocytes (%) (Auto) 26 % (24-48) Monocytes (%) (Auto) 7 % (0-9) Eosinophils (%) (Auto) 2 % (0-3) Basophils (%) (Auto) 0 % (0-3) Neutrophils # (Auto) 6.3 x10^3/uL (1.8-7.7) Lymphocytes # (Auto) 2.5 x10^3/uL (1.0-4.8) Monocytes # (Auto) 0.7 x10^3/uL (0.0-1.1) Eosinophils # (Auto) 0.2 x10^3/uL (0.0-0.7) Basophils # (Auto) 0.0 x10^3/uL (0.0-0.2) Sodium Level 145 mmol/L (136-145) Potassium Level 3.6 mmol/L (3.5-5.1) Chloride Level 107 mmol/L (98-107) Carbon Dioxide Level 29 mmol/L (21-32) Anion Gap 9 (6-14) Blood Urea Nitrogen 13 mg/dL (7-20) Creatinine 0.7 mg/dL (0.6-1.0) Estimated GFR (Cockcroft-Gault) 80.7 BUN/Creatinine Ratio 19 (6-20) Glucose Level 93 mg/dL (70-99) Calcium Level 8.7 mg/dL (8.5-10.1) Total Bilirubin 0.5 mg/dL (0.2-1.0) Aspartate Amino Transf (AST/SGOT) 20 U/L (15-37) Alanine Aminotransferase (ALT/SGPT) 17 U/L (14-59) Alkaline Phosphatase 45 U/L (46-116) Total Protein 6.0 g/dL (6.4-8.2) Albumin 2.8 g/dL (3.4-5.0) Albumin/Globulin Ratio 0.9 (1.0-1.7) Laboratory Tests Test 09/15/19 03:55 White Blood Count 9.7 x10^3/uL (4.0-11.0) Red Blood Count 3.80 x10^6/uL (3.50-5.40) Hemoglobin 11.7 g/dL (12.0-15.5) Hematocrit 34.9 % (36.0-47.0) Mean Corpuscular Volume 92 fL (79-100) Mean Corpuscular Hemoglobin 31 pg (25-35) Mean Corpuscular Hemoglobin Concent 34 g/dL (31-37) Red Cell Distribution Width 13.8 % (11.5-14.5) Platelet Count 200 x10^3/uL (140-400) Neutrophils (%) (Auto) 65 % (31-73) Lymphocytes (%) (Auto) 26 % (24-48) Monocytes (%) (Auto) 7 % (0-9) Eosinophils (%) (Auto) 2 % (0-3) Basophils (%) (Auto) 0 % (0-3) Neutrophils # (Auto) 6.3 x10^3/uL (1.8-7.7) Lymphocytes # (Auto) 2.5 x10^3/uL (1.0-4.8) Monocytes # (Auto) 0.7 x10^3/uL (0.0-1.1) Eosinophils # (Auto) 0.2 x10^3/uL (0.0-0.7) Basophils # (Auto) 0.0 x10^3/uL (0.0-0.2) Sodium Level 145 mmol/L (136-145) Potassium Level 3.6 mmol/L (3.5-5.1) Chloride Level 107 mmol/L (98-107) Carbon Dioxide Level 29 mmol/L (21-32) Anion Gap 9 (6-14) Blood Urea Nitrogen 13 mg/dL (7-20) Creatinine 0.7 mg/dL (0.6-1.0) Estimated GFR (Cockcroft-Gault) 80.7 BUN/Creatinine Ratio 19 (6-20) Glucose Level 93 mg/dL (70-99) Calcium Level 8.7 mg/dL (8.5-10.1) Total Bilirubin 0.5 mg/dL (0.2-1.0) Aspartate Amino Transf (AST/SGOT) 20 U/L (15-37) Alanine Aminotransferase (ALT/SGPT) 17 U/L (14-59) Alkaline Phosphatase 45 U/L (46-116) Total Protein 6.0 g/dL (6.4-8.2) Albumin 2.8 g/dL (3.4-5.0) Albumin/Globulin Ratio 0.9 (1.0-1.7) Allergies Allergies Coded Allergies Type Severity Reaction Last Updated Verified guanfacine Allergy Intermediate 09/06/19 Yes lisinopril Allergy Intermediate 09/06/19 Yes Disposition/Orders: Other (d/c to SNF) Hemodynamically unstable?: No Is patient in severe pain?: No Is NPO status required?: No FRANSISCO ARRIETA MD Sep 15, 2019 12:58
[2019-09-15] MEDS ORDERED: DOCU-153 PO (13:00)
[2019-09-15] MEDS ORDERED: PANT40TA77 PO (13:00)
[2019-09-15] MEDS ORDERED: POTA20TA4 PO (13:00)
[2019-09-15] MEDS ORDERED: ALBU2.5V8 NEB (13:00)
[2019-09-15] MEDS ORDERED: DICL100G18 TP (13:00)
--- NOTE | 2019-09-15 13:02 | SNU/HH DC ---
DISCHARGE ORDERS DISCHARGE INFORMATION: DISCHARGE DATE: Sep 15, 2019 FINAL DIAGNOSIS Problems Medical Problems: (1) SBO (small bowel obstruction) Status: Acute CONDITION ON DISCHARGE: Stable CODE STATUS: Code Status: Full [facility]: SNF STAY <30 DAYS: Yes HOSPICE: HOSPICE: No HOSPICE EVAL & TREAT: No LTAC: ADMIT TO LTAC: No POST DISCHARGE ORDERS: ACTIVITY ORDERS: Activity as tolerated DIET AFTER DISCHARGE: MECHANICAL SOFT CHECKS AFTER DISCHARGE: CHECKS AFTER DISCHARGE: Check blood press - daily TREATMENT/EQUIPMENT ORDERS: Physical Therapy For: Evalulation/Treatment Occupational Therapy For: Evaluation/Treatment Speech Language Pathology For: Evaluation/Treatment DISCHARGE MEDICATIONS: Home Meds Active Scripts Pantoprazole Sodium (PANTOPRAZOLE SODIUM ) 40 Mg Tablet.dr, 40 MG PO DAILYAC for GERD for 30 Days, #30 TAB.SR Prov:FRANSISCO ARRIETA MD 09/15/19 Docusate Sodium (DOK) 100 Mg Capsule, 100 MG PO PRN BID PRN for HARD STOOLS for 30 Days, #60 CAP Prov:FRANSISCO ARRIETA MD 09/15/19 Potassium Chloride (KLOR-CON M20) 20 Meq Tab.er.prt, 20 MEQ PO DAILYWBKFT for SUPPLEMENT for 10 Days, #10 TAB.SR Prov:FRANSISCO ARRIETA MD 09/15/19 Diclofenac Sodium (VOLTAREN) 100 Gm Gel..gram., 1 ULICES TP PRN BID PRN for pain for 14 Days, #60 EACH Prov:FRANSISCO ARRIETA MD 09/15/19 Albuterol Sulfate (Proair Hfa) 8.5 Gm Hfa.aer.ad, 2.5 MG NEB PRN Q4HRS PRN for SHORTNESS OF BREATH for 14 Days, #1 INHALER Prov:FRANSISCO ARRIETA MD 09/15/19 Reported Medications Triamterene/Hydrochlorothiazid (MAXZIDE 37.5 MG-25 MG TABLET) 1 Each Tablet, 0.5 TAB PO HS for diuretic, #30 TAB 5 Refills 09/15/19 Acetaminophen (ACETAMINOPHEN) 500 Mg Tablet, 1 TAB PO PRN Q6HRS PRN for pain or fever for 15 Days, #60 TAB 0 Refills 09/07/19 Aspirin (ASPIRIN) 81 Mg Tab.chew, 1 TAB PO DAILY for prophylactic, #30 TAB 3 Refills 09/07/19 Verapamil Hcl (VERAPAMIL ER) 240 Mg Cap24h.pel, 1 CAP PO HS for hypertension, #30 CAP 5 Refills 09/07/19 Travoprost (TRAVATAN Z) 5 Ml Drops, 5 ML OU QHS for glaucoma, BOTTLE 09/07/19 Celecoxib (CELEBREX) 200 Mg Capsule, 1 CAP PO DAILY for pain, #30 CAP 2 Refills 09/07/19 FRANSISCO ARRIETA MD Sep 15, 2019 13:02
--- NOTE | 2019-09-15 13:07 | DISCH ---
DISCHARGE INSTRUCTIONS Condition on Discharge Condition on Discharge: Stable Activity After Discharge Activity Instructions for Disc: Activity as tolerated Lifting Instructions after Dis: No heavy lifting, No pulling or pushing, Do not lift >10 pounds Driving Instructions after Dis: Do not drive Diet after Discharge Diet after Discharge: GI Soft Liquid Texture: Thin Liquid Checks after Discharge Checks after discharge: Check blood press - daily Contacting the DR. after DC Call your doctor for: If your condition worsens Treatment/Equipment after DC Adaptive Equipment Issued: None FRANSISCO ARRIETA MD Sep 15, 2019 13:07
--- NOTE | 2019-09-15 13:10 | PDOC ---
SURGICAL PROGRESS NOTE Subjective tolerating diet + stools no emesis Vital Signs Vital Signs Date Time Temp Pulse Resp B/P (MAP) Pulse Ox O2 Delivery O2 Flow Rate FiO2 09/15/19 11:13 98.1 67 18 112/40 (64) 94 Room Air 98.1 I&O Intake and Output 09/15/19 07:00 Intake Total 460 ml Balance 460 ml Intake Oral 460 ml # Voids 4 General: Alert, Oriented X3, Cooperative Abdomen: Soft, No tenderness Labs Laboratory Tests Test 09/15/19 03:55 White Blood Count 9.7 x10^3/uL (4.0-11.0) Red Blood Count 3.80 x10^6/uL (3.50-5.40) Hemoglobin 11.7 g/dL (12.0-15.5) Hematocrit 34.9 % (36.0-47.0) Mean Corpuscular Volume 92 fL (79-100) Mean Corpuscular Hemoglobin 31 pg (25-35) Mean Corpuscular Hemoglobin Concent 34 g/dL (31-37) Red Cell Distribution Width 13.8 % (11.5-14.5) Platelet Count 200 x10^3/uL (140-400) Neutrophils (%) (Auto) 65 % (31-73) Lymphocytes (%) (Auto) 26 % (24-48) Monocytes (%) (Auto) 7 % (0-9) Eosinophils (%) (Auto) 2 % (0-3) Basophils (%) (Auto) 0 % (0-3) Neutrophils # (Auto) 6.3 x10^3/uL (1.8-7.7) Lymphocytes # (Auto) 2.5 x10^3/uL (1.0-4.8) Monocytes # (Auto) 0.7 x10^3/uL (0.0-1.1) Eosinophils # (Auto) 0.2 x10^3/uL (0.0-0.7) Basophils # (Auto) 0.0 x10^3/uL (0.0-0.2) Sodium Level 145 mmol/L (136-145) Potassium Level 3.6 mmol/L (3.5-5.1) Chloride Level 107 mmol/L (98-107) Carbon Dioxide Level 29 mmol/L (21-32) Anion Gap 9 (6-14) Blood Urea Nitrogen 13 mg/dL (7-20) Creatinine 0.7 mg/dL (0.6-1.0) Estimated GFR (Cockcroft-Gault) 80.7 BUN/Creatinine Ratio 19 (6-20) Glucose Level 93 mg/dL (70-99) Calcium Level 8.7 mg/dL (8.5-10.1) Total Bilirubin 0.5 mg/dL (0.2-1.0) Aspartate Amino Transf (AST/SGOT) 20 U/L (15-37) Alanine Aminotransferase (ALT/SGPT) 17 U/L (14-59) Alkaline Phosphatase 45 U/L (46-116) Total Protein 6.0 g/dL (6.4-8.2) Albumin 2.8 g/dL (3.4-5.0) Albumin/Globulin Ratio 0.9 (1.0-1.7) Laboratory Tests Test 09/15/19 03:55 White Blood Count 9.7 x10^3/uL (4.0-11.0) Red Blood Count 3.80 x10^6/uL (3.50-5.40) Hemoglobin 11.7 g/dL (12.0-15.5) Hematocrit 34.9 % (36.0-47.0) Mean Corpuscular Volume 92 fL (79-100) Mean Corpuscular Hemoglobin 31 pg (25-35) Mean Corpuscular Hemoglobin Concent 34 g/dL (31-37) Red Cell Distribution Width 13.8 % (11.5-14.5) Platelet Count 200 x10^3/uL (140-400) Neutrophils (%) (Auto) 65 % (31-73) Lymphocytes (%) (Auto) 26 % (24-48) Monocytes (%) (Auto) 7 % (0-9) Eosinophils (%) (Auto) 2 % (0-3) Basophils (%) (Auto) 0 % (0-3) Neutrophils # (Auto) 6.3 x10^3/uL (1.8-7.7) Lymphocytes # (Auto) 2.5 x10^3/uL (1.0-4.8) Monocytes # (Auto) 0.7 x10^3/uL (0.0-1.1) Eosinophils # (Auto) 0.2 x10^3/uL (0.0-0.7) Basophils # (Auto) 0.0 x10^3/uL (0.0-0.2) Sodium Level 145 mmol/L (136-145) Potassium Level 3.6 mmol/L (3.5-5.1) Chloride Level 107 mmol/L (98-107) Carbon Dioxide Level 29 mmol/L (21-32) Anion Gap 9 (6-14) Blood Urea Nitrogen 13 mg/dL (7-20) Creatinine 0.7 mg/dL (0.6-1.0) Estimated GFR (Cockcroft-Gault) 80.7 BUN/Creatinine Ratio 19 (6-20) Glucose Level 93 mg/dL (70-99) Calcium Level 8.7 mg/dL (8.5-10.1) Total Bilirubin 0.5 mg/dL (0.2-1.0) Aspartate Amino Transf (AST/SGOT) 20 U/L (15-37) Alanine Aminotransferase (ALT/SGPT) 17 U/L (14-59) Alkaline Phosphatase 45 U/L (46-116) Total Protein 6.0 g/dL (6.4-8.2) Albumin 2.8 g/dL (3.4-5.0) Albumin/Globulin Ratio 0.9 (1.0-1.7) Problem List Problems Medical Problems: (1) SBO (small bowel obstruction) Status: Acute Assessment/Plan improved dc planning no surgical needs, call if concerns, will sign off GALDINO INFANTE APRN Sep 15, 2019 13:10
--- NOTE | 2019-09-15 14:38 | NUR ---
Pt discharged home with self care. Discharge instructions and prescriptions discussed. Pt verbalized understanding. Belongings were packed by family and taken to vehicle prior to dc instructions. IV removed by STORE PRODUCT DEMONSTRATOR. Pt assisted to wheelchair and was taken to main entrance and secured in vehicle with family.
== END 2019-09-15 14:00 | disposition home or self-care (01) | DRG 389 ==
LOC: ER 13:30 → 4 NORTH 17:54
PROVIDERS: ADMIT Internal Medicine; ATTEND Internal Medicine
PROC: 0D9670Z Drainage of Stomach with Drainage Device, Via Natural or Artificial Opening (ICD-10-PCS; principal; 2019-09-10)
DX: K56.600 Partial intestinal obstruction, unspecified as to cause (principal); Z68.42 Body mass index [BMI] 45.0-49.9, adult; D72.829 Elevated white blood cell count, unspecified; I10 Essential (primary) hypertension; H40.9 Unspecified glaucoma; K21.9 Gastro-esophageal reflux disease without esophagitis; Z96.653 Presence of artificial knee joint, bilateral; E66.01 Morbid (severe) obesity due to excess calories; E87.6 Hypokalemia; K56.0 Paralytic ileus; G89.29 Other chronic pain; M19.90 Unspecified osteoarthritis, unspecified site; N60.19 Diffuse cystic mastopathy of unspecified breast; Z79.82 Long term (current) use of aspirin; Z90.710 Acquired absence of both cervix and uterus; Z88.8 Allergy status to other drugs, medicaments and biological substances; Z98.42 Cataract extraction status, left eye; Z98.41 Cataract extraction status, right eye; Z86.010 Personal history of colon polyps; Z82.5 Family history of asthma and other chronic lower respiratory diseases; Z82.3 Family history of stroke; Z83.71 Family history of colonic polyps; Z80.1 Family history of malignant neoplasm of trachea, bronchus and lung; Z82.49 Family history of ischemic heart disease and other diseases of the circulatory system; Z80.7 Family history of other malignant neoplasms of lymphoid, hematopoietic and related tissues
CPT/HCPCS: 36415; 74018; 74021; 74022; 74177; 74250; 80048; 80053; 80069; 80307; 81001; 82310; 82553; 83690; 83735; 83880; 84132; 84484; 85007; 85025; 93005; 94760; 96361; 96374; 96375; J1650; J2060; J2212; J2270; J2405; J3010; J3475; J3480; J3490; J7030; J7042; Q9967; 97116; 97530; 99285-25; G0378

== ENCOUNTER → 2020-05-29 | Outpatient (CLI) | payer MEDICARE ==
[~2020-05-29] MED LIST: ACET500T68 PO; ALBU2.5V8 NEB; ASPI-630 PO; CELE200C PO; DICL100G54 TP; DOCU-153 PO; PANT40TA77 PO; POTA20TA4 PO; TRAV5DRO OU; TRIA1TAB2 PO; TRIA50CA3 PO; VERA240C2 PO
--- NOTE | 2020-05-29 11:55 | KCIC ---
Bilateral digital screening mammograms with 3-D tomosynthesis: Reason for examination: Routine screening. Comparison is made to previous studies dated 09/24/2017 and 12/12/2015. Bilateral mammograms in CC and oblique projections were obtained with 2-D imaging and 3-D tomosynthesis imaging on a Siemens Inspiration unit and reviewed on the workstation. Interpretation was made with the benefit of CAD. The skin and nipples show no abnormalities. No abnormal axillary lymph nodes are seen. The breast parenchyma is predominantly fatty. (Breast density: Category A.) There continued be small nodules in the upper outer quadrants consistent with intramammary lymph nodes which are stable. There are scattered benign-appearing calcifications which are stable. There are no new dominant masses, suspicious calcifications or architectural distortion. Impression: No evidence of malignancy. Recommend routine screening. BI-RAD Category 2: Benign. "Our facility is accredited by the [employer] Mammography Program." This patient's information has been entered into a reminder system for the patient to be notified with the results of her examination and a target date for the next mammogram. Electronically signed by: Rosalie Mccurdy MD (05/29/2020 11:52 AM) [email or web address]
== END ==
LOC: KCIC MAMMO 10:09
PROVIDERS: ATTEND Family Medicine
DX: Z12.31 Encounter for screening mammogram for malignant neoplasm of breast (principal); N64.89 Other specified disorders of breast
CPT/HCPCS: 77063; 77067

== ENCOUNTER → 2021-09-05 | Outpatient (CLI) | payer MEDICARE ==
[~2021-09-05] MED LIST changes: +DOCU-148 PO; -DOCU-153 PO; +POTA-121 PO; -POTA20TA4 PO
--- NOTE | 2021-09-05 11:27 | KCIC ---
Bilateral digital screening mammograms with 3-D tomosynthesis: Reason for examination: Routine screening. Comparison is made to previous studies dated back to 12/12/2015. Bilateral mammograms in CC and oblique projections were obtained with 2-D imaging and 3-D tomosynthes is imaging on a Siemens Inspiration unit and reviewed on the workstation. Interpretation was made wit h the benefit of CAD. The skin and nipples show no abnormalities. No abnormal axillary lymph nodes are seen. The breast par enchyma is predominantly fatty. (Breast density: Category A.) There are small nodules consistent with intramammary lymph nodes bilaterally. There are no new dominant masses, suspicious calcifications or architectural distortion. Benign calcifications are present. Impression: No evidence of malignancy. Recommend routine screening. BI-RAD Category 2: Benign. "Our facility is accredited by the [employer] Mammography Program." This patient's information has been entered into a reminder system for the patient to be notified wit h the results of her examination and a target date for the next mammogram. Electronically signed by: Rosalie Mccurdy MD (09/05/2021 11:24 AM) [email or web address]
--- NOTE | 2021-09-05 14:58 | KCIC ---
3 views of lumbar spine without comparison for chronic low back pain, multiple sites, worse on the ri ght. FINDINGS: There is straightening of the normal lumbar lordosis. Mild narrowing at L5-S1 and minimal n arrowing at L4-5. Bulky facet arthrosis in the lower lumbar levels. There is uncovertebral osteophyto sis at the upper lumbar levels, and this results in a mild curvature of the lumbar spine. No fracture or acute osseous abnormalities. IMPRESSION: 1. Multilevel degenerative spondylosis and facet arthrosis with no acute osseous or alignment abnorma lity. Electronically signed by: En Nails MD (09/05/2021 2:55 PM) [id number]
== END ==
LOC: KCIC MAMMO 10:18
PROVIDERS: ATTEND Family Medicine
DX: Z12.31 Encounter for screening mammogram for malignant neoplasm of breast (principal); M47.816 Spondylosis without myelopathy or radiculopathy, lumbar region; M40.46 Postural lordosis, lumbar region; M48.07 Spinal stenosis, lumbosacral region
CPT/HCPCS: 72100; 77063; 77067